=== PATIENT | female | born 1945 | race Caucasian/White ===

== ENCOUNTER 2019-12-13 17:21 | Outpatient (CLI) | payer MEDICARE, OTHER, SELFPAY ==
--- NOTE | ~2019-12-13 | XR_ITS ---
XR chest 2V 12/13/2019 17:47 Indication: Shortness of breath. COPD. Procedure: PA and lateral views of the chest Comparison: No prior studies for comparison. Findings: Heart size normal. There is apical pleural thickening/scarring. Heart size normal. The lung s are hyperinflated which is consistent with, but not diagnostic of chronic obstructive pulmonary dis ease. No focal air space disease, pulmonary edema, pleural effusion or suspected pneumothorax. Impression: 1: No acute cardiopulmonary disease. Reviewed, dictated and finalized at location A. Impression: 1: No acute cardiopulmonary disease.
== END 2019-12-13 17:22 | disposition home or self-care (01) ==
PROVIDERS: PCP Internal Medicine; Visit Provider Nurse Practitioner Family
DX: R06.02 Shortness of breath (principal); R05 Cough; J44.9 Chronic obstructive pulmonary disease, unspecified
CPT/HCPCS: 71046

== ENCOUNTER 2019-12-24 13:32 | Outpatient (CLI) | payer MEDICARE, OTHER, SELFPAY ==
[2019-12-24 13:55] VITALS: PULSE 112; O2SAT 96
[2019-12-24 14:00] VITALS: PULSE 118; O2SAT 90
[2019-12-24 14:10] VITALS: PULSE 113; O2SAT 94
== END 2019-12-24 13:33 | disposition home or self-care (01) ==
PROVIDERS: PCP Internal Medicine; Visit Provider Nurse Practitioner Family
DX: R09.02 Hypoxemia (principal)
CPT/HCPCS: 94618

== ENCOUNTER 2020-04-16 13:41 | Outpatient (CLI) | payer MEDICARE, OTHER, SELFPAY ==
--- NOTE | ~2020-04-16 | CT_ITS ---
EXAMINATION:CT lung screening DATE: 04/16/2020 14:24 INDICATION: Personal history of tobacco dependence. Smoker who quit 6 years ago with 30 pack year his tory. TECHNIQUE: Computed tomography (CT) of the chest was performed without intravenous contrast. Automate d exposure control and iterative reconstruction technique were employed. The dose-length product (DLP ) was 61.25 mGy-cm. COMPARISON: Chest CT 03/12/2019, 03/15/2018 FINDINGS: There is severe emphysema. There is chronic scarring at the lung apices with areas of calci fication. There is mild atelectasis bilaterally. A calcified lingular nodule is consistent with old g ranulomatous disease. No pleural effusion. The heart size is normal. There are coronary artery calcif ications. No pericardial effusion. Calcifications in the spleen are consistent with old granulomatous disease. 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 There are changes of cho lecystectomy. There is mild thoracic spondylosis. IMPRESSION: 1. Lung-RADS category 2: Benign appearance or behavior. Continue annual screening with noncontrast lo w-dose chest CT in 12 months. 2. 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 Reviewed, dictated and finalized at location B. 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 Lung-RADS category 2: Benign appearance or behavior. Continue annual screeni ng with noncontrast low-dose chest CT in 12 months. 2. 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
== END 2020-04-16 13:42 | disposition home or self-care (01) ==
PROVIDERS: PCP Internal Medicine; Visit Provider Nurse Practitioner Family
DX: Z12.2 Encounter for screening for malignant neoplasm of respiratory organs (principal); Z87.891 Personal history of nicotine dependence; I71.4 Abdominal aortic aneurysm, without rupture
CPT/HCPCS: G0297

== ENCOUNTER 2020-06-12 12:17 | Outpatient (CLI) | payer MEDICARE, OTHER, SELFPAY ==
--- NOTE | 2020-06-12 12:53 | ECHO_ITS ---
Patient Info Name: Ana Laura Monzon Age: 74 years : 1945 Gender: Female Ht: 64 in Wt: 127 lbs BSA: 1.62 m2 HR: 100 bpm BP: 140 / 92 mmHg Heart Rhythm: Sinus Rhythm Technical Quality: Good Exam Date: 06/12/2020 1:23 PM Exam Location: [facility] Patient Status: Outpatient Admit Date: 06/12/2020 Staff Ordering Physician: Lan Garcia APRN Behavioral Health Director: Susanna Short RDCS Attending Provider: Lan Garcia APRN Referring Physician: Jose TEMPLETON; Exam Type: CA echo doppler color flow Study Info Indications - copd sob Complete two-dimensional, color flow and Doppler transthoracic echocardiogram is performed. Summary 1. Complete two-dimensional, color flow and Doppler transthoracic echocardiogram is performed. 2. Left ventricular chamber dimension is normal. 3. Left ventricular systolic function is hyperdynamic, estimated at >70%. 4. There is no increased left ventricular wall thickness. 5. The left ventricular diastolic function is grade I diastolic dysfunction. 6. There is mild tricuspid valve regurgitation. 7. Mild pulmonary hypertension, estimated pulmonary arterial systolic pressure is 41 mmHg. Left Ventricle Left ventricular chamber dimension is normal. Left ventricular systolic function is hyperdynamic, estimated at >70%. There is no increased left ventricular wall thickness. The left ventricular diastolic function is grade I diastolic dysfunction. Right Ventricle Right ventricular chamber dimension is normal. Right ventricular systolic function is normal. Left Atria Left atrial chamber dimension is normal. Right Atria Right atrial chamber dimension is normal. Atrial Septum Intact interatrial septum visualized by color flow imaging. Aortic Valve The aortic valve is trileaflet. There is mild aortic valve sclerosis. There is no aortic valve stenosis. There is trace aortic valve regurgitation. Pulmonic Valve The pulmonic valve is normal. There is no pulmonic valve stenosis. There is trace pulmonic regurgitation. Mitral Valve The mitral valve has normal leaflets. There is no mitral valve stenosis. There is trace mitral valve regurgitation. Tricuspid Valve The tricuspid valve leaflets are normal. There is no significant tricuspid valve stenosis. There is mild tricuspid valve regurgitation. Mild pulmonary hypertension, estimated pulmonary arterial systolic pressure is 41 mmHg. Pericardium/Pleural The pericardium appears normal. There is no pericardial effusion. Inferior Vena Cava Normal inferior vena cava with >50% collapse upon inspiration consistent with normal right atrial pressure, 10 mmHg. Aorta The aortic root size at the sinus of Valsalva is normal. The prox ascending aorta size is normal. Left Ventricular Outflow Tract Name Value Normal LVOT 2D LVOT Diameter 2.0 cm LVOT Doppler LVOT Peak Gradient 7 mmHg LVOT Mean Gradient 4 mmHg LVOT VTI 24 cm LVOT VTI/AV VTI Ratio 0.9 LVOT Stroke Volume
[2020-06-12 13:55] VITALS: PULSE 118; O2SAT 92
[2020-06-12 14:00] VITALS: PULSE 125; O2SAT 90
[2020-06-12 14:05] VITALS: PULSE 115; O2SAT 95
== END 2020-06-12 12:18 | disposition home or self-care (01) ==
PROVIDERS: PCP Internal Medicine; Visit Provider Nurse Practitioner Family
DX: R06.02 Shortness of breath (principal); I27.20 Pulmonary hypertension, unspecified
CPT/HCPCS: 93306; 94618

== ENCOUNTER 2020-11-21 11:59 | Inpatient (IN) | payer MEDICARE, OTHER, SELFPAY ==
[2020-11-21] VITALS (18 sets, daily range): BP systolic 97–153; BP diastolic 75–94; PULSE 93–111; RESP 18–28; TEMP 36.2–36.7; O2SAT 89–99; BMI 22.7
--- NOTE | ~2020-11-21 | CT_ITS ---
EXAMINATION: CTA chest PE protocol DATE: 11/24/2020 12:43 INDICATION: Shortness of breath TECHNIQUE: Computed tomography angiography (CTA) of the chest was performed with 100 mL Omnipaque-350 intravenous contrast timed to evaluate the pulmonary arteries. Coronal maximum intensity projection 3D-reconstructions were created by the technologist. The dose-length product (DLP) was 180.52 mGy-cm. Automated exposure control and iterative reconstruction technique were employed. COMPARISON: 04/16/2020 FINDINGS: The pulmonary arteries are well-opacified. No pulmonary embolism is identified. There is se jatin emphysema with areas of scarring in the upper lobes. There is expected decreased opacification o f the pulmonary arteries in the areas of scarring. The lungs are free of acute opacities. There is no pleural effusion or pneumothorax. Surgical changes are noted in the right lung apex. No pathological ly enlarged thoracic lymph nodes are identified. The heart size is normal. There is mild thoracic spo ndylosis. Again noted is a partially imaged fusiform aneurysm of the suprarenal abdominal aorta. IMPRESSION: 1. No pulmonary embolism identified. 2. Severe emphysema with areas of scarring in the upper lobes. Reviewed, dictated and finalized at location A.
--- NOTE | ~2020-11-21 | XR_ITS ---
EXAMINATION: XR chest 1V portable EXAM DATE: 11/21/2020 12:26 INDICATION: Shortness of breath, history of COPD. TECHNIQUE: Portable AP frontal chest x-ray was obtained. Comparison is made to prior examination from 12/13/2019. FINDINGS: Right upper lobe suture material, likely partial pneumonectomy. The lungs are hyperinflated which can be seen with chronic obstructive pulmonary disease (a clinical diagnosis of functional imp airment), but is not diagnostic of it. There is aortic arteriosclerosis. No confluent consolidation, pneumothorax or pleural effusion suspected. Cardiomediastinal silhouette is normal. There are mild yash ny degenerative changes. There are cholecystectomy clips. IMPRESSION: 1. No acute cardiac pulmonary findings. 2. Chronic hyperinflation. Reviewed, dictated and finalized at location B.
--- NOTE | ~2020-11-21 | XR_ITS ---
EXAMINATION: XR chest 1V portable DATE: 11/25/2020 06:05 INDICATION: Shortness of breath TECHNIQUE: frontal view of the chest was obtained. COMPARISON: Chest radiograph and CT dated 11/24/2020 FINDINGS: Emphysema with increased lucency and architectural distortion at the upper lung zones, left greater t kaplan right. Moderate biapical pleural-parenchymal scarring. Skinfold projects over the lateral right h emithorax. No other airspace opacities, pulmonary edema, pleural effusion or pneumothorax. The cardio mediastinal silhouette is normal. IMPRESSION: 1. Emphysema with biapical pleural-parenchymal scarring. Reviewed, dictated and finalized at location A.
--- NOTE | ~2020-11-21 | XR_ITS ---
EXAMINATION: XR chest 1V portable INDICATION: Shortness of breath TECHNIQUE: Portable AP chest at 0518 hours COMPARISON: 11/21/2020 FINDINGS: The lungs are hyperinflated but free of acute opacities. There is scarring of the lung apic es. Surgical changes noted in the right lung apex. There is no pleural effusion or pneumothorax. The cardiomediastinal silhouette is normal. Surgical clips in the right upper quadrant are likely from pr ior cholecystectomy. IMPRESSION: 1. Hyperinflation without acute cardiopulmonary abnormality. Reviewed, dictated and finalized at location A.
--- NOTE | ~2020-11-21 | XR_ITS ---
EXAMINATION: XR chest 1V portable DATE: 11/24/2020 05:23 INDICATION: Shortness of breath TECHNIQUE: frontal view of the chest was obtained. COMPARISON: Chest radiograph dated 11/23/2020 FINDINGS: Mild biapical pleural-parenchymal scarring. Couple curved skinfolds project over the lateral right jennyfer ng. No other airspace opacities, pulmonary edema, pleural effusion or pneumothorax. The cardiomediast inal silhouette is normal. IMPRESSION: 1. No acute cardiopulmonary disease. Reviewed, dictated and finalized at location A.
--- NOTE | 2020-11-21 12:03 | ECG_ITS ---
Measurements Intervals [place] Rate: 106 P: 79 HI: 147 QRS: 38 QRSD: 94 T: 66 QT: 353 QTc: 470 Interpretive Statements SINUS TACHYCARDIA POSSIBLE LEFT ATRIAL ENLARGEMENT BORDERLINE R WAVE PROGRESSION, ANTERIOR LEADS CONSIDER INFERIOR INFARCT, AGE INDETERMINATE BASELINE ARTIFACT- I, II, III, AVR, AVL, AVF, V1-V6 ABNORMAL ECG Electronically Signed On 11-21-2020 13:18:00 CDT by Alexis Carlton D.O.
--- NOTE | 2020-11-21 12:22 | ED.SOB ---
HPI - SOB/Dyspnea General Chief Complaint: Shortness of Breath/Dyspnea Stated Complaint: SOB x 3days Time Seen by Provider: 11/21/20 12:14 History of Present Illness HPI Narrative: Short of breath for the past 2 days. Associated with increased work of breathing. She has been taking all of her COPD medications without significant relief. She received Dexamethasone, magnesium and a nebulizer treatment per EMS without significant improvement. No chest pain, fever. Related Data Home Medications Medication Instructions Recorded Confirmed metoprolol succinate 25 mg 25 mg PO DAILY 08/06/20 11/21/20 tablet,extended release 24 hr levalbuterol HCl 1.25 mg INHALATION Q8H PRN 11/21/20 11/21/20 Allergies Allergy/AdvReac Type Severity Reaction Status Date / Time fluticasone furoate AdvReac Severe Rash Verified 11/21/20 12:17 [From Trelegy Ellipta] umeclidinium AdvReac Severe Rash Verified 11/21/20 12:17 [From Trelegy Ellipta] vilanterol AdvReac Severe Rash Verified 11/21/20 12:17 [From Trelegy Ellipta] Review of Systems Review of Systems: All systems reviewed & are unremarkable except as noted in HPI and below Constitutional: Constitutional: Denies chills, Denies fever(s) and Denies weakness Eyes: Eyes: Reports no additional eye complaints ENT: Denies sore throat Cardiovascular: Cardiovascular: Denies chest pain Respiratory: Respiratory: Denies cough, Reports dyspnea and Reports wheezing Gastrointestinal: Gastrointestinal: Denies abdominal pain, Denies nausea and Denies vomiting Genitourinary: Genitourinary: Reports no additional female genitourinary complaints Musculoskeletal: Musculoskeletal: Reports no additional musculoskeletal complaints Neurologic: Denies numbness and Denies weakness [facility] Past Medical History Medical History (Updated 11/21/20 @ 17:49 by Travis Zelaya MD) COPD (chronic obstructive pulmonary disease) Cystoid macular edema following cataract surgery, bilateral Hypoxemia Rhinitis Surgical History Surgical History H/O tubal ligation History of breast biopsy History of cholecystectomy History of total hip arthroplasty Family History Family History Father Cerebrovascular accident, Onset Age: 87 Patient's father is Mother Patient's mother is Diabetes mellitus Hypertension Family history of cardiovascular disease Sibling Patient's brother is Family history of malignant neoplasm of esophagus Family history of obesity Hypertension Patient's brother is in good health Malignant neoplasm of prostate Family history of diabetes mellitus in first degree relative Diabetes mellitus Family history of alcoholism Family history of arthritis Social History Social History Smoking status: Former smoker Second hand tobacco smoke exposure: No Smoking end date: 06/06/14 Alcohol intake: current Drinks per week: 4 Substance use: never Gender identity (if verbalized by the patient): Female Exam Const: General: alert and ill appearing acutely Orientation/consciousness: patient oriented x3 Other: mild distress. HENMT: Head: normal to inspection Mouth: Yes dry mucous membranes Eyes: Conjunctivae: conjunctivae normal Neck: Neck: normal visual inspection Resp: Effort & Inspection: labored and uses accessory muscles Auscultation: wheezes and diminished lung sounds Cardio: Rate: tachycardic Rhythm: regular rhythm GI: GI Palp: Yes Soft to palpation and No Tenderness to palpation present (GI) Skin: General skin exam: normal color Neuro: General: patient oriented x3, moves all extremities and CN's II-XI intact bilaterally Extrem: General: no edema Psych: Mental Status: mental status grossly normal Affect: n
[2020-11-21] MEDS: ALBUTEROL SULFATE NEB 2.5 MG/0.5 ML INH 10 MG INHALATION (12:40)
[2020-11-21] MEDS: SODIUM CHLORIDE 0.9% IV 1,000 ML 999 ML IV CONT (12:40)
[2020-11-21 12:52] LABS: Alveolar/Arterial O2 Gradient 106.2 mmHg; Base Excess ABG -3.3 mEq/l (+/-2.0); Carboxyhemoglobin 0.7 % THb (0-2.0); Fractional Inspired Oxygen 32 %; HCO3 ABG 24.7 mEq/l (22.0-26.0); Methemoglobin ABG 0.4 %THb (0-1.5); Oxygen Content ABG 18.4 %vol (16.0-22.0); Oxyhemoglobin 85.6 % THb (90.0-100.0); PCO2 ABG 56.3 mmHg (35.0-45.0); PO2 ABG 56.1 mmHg (80.0-100.0); PO2 FiO2 Ratio Arterial Blood 1.75 %; Reduced Hemoglobin 13.3 %THb (0-5.0); Total Hemoglobin 15.3 g/dL (12.0-18.0)
[2020-11-21 12:54] LABS: Device NASAL CANNULA; Modified Allen's Test Pass; Oxygen Saturation ABG 84.3 % (95.0-100.0); Site Drawn LEFT RADIAL
[2020-11-21 13:06] LABS: Basophils Percent Auto 0.2 % (0.2-1.2); Hematocrit 44.4 % (37.0-47.0); Hemoglobin 14.1 g/dL (12.0-15.0); Immature Granulocyte Absolute 0.08 K/mm3 (0.00-0.031); Immature Granulocyte Percent A 0.6 % (0-0.5); Lymphocytes Absolute Auto 0.97 K/mm3 (0.9-3.2); Lymphocytes Percent Auto 6.8 % (18.3-44.2); Mean Corpuscular HGB Conc 31.8 g/dl (32-36); Mean Corpuscular Hemoglobin 33.1 pg (26-34); Mean Corpuscular Volume 104.2 fl (80-100); Mean Platelet Volume 9.1 fl (7.4-10.4); Monocytes Absolute Auto 0.5 K/mm3 (0.1-0.6); Monocytes Percent Auto 3.4 % (2.6-8.5); Neutrophils Absolute Auto 12.7 K/mm3 (1.3-6.7); Platelet Count Result 255 k/mm3 (150-375); Red Blood Count 4.26 M/mm3 (4.2-5.4); Red Cell Distribution Width 13.3 % (11.5-14.5); White Blood Count 14.3 K/mm3 (4.5-10.0)
[2020-11-21 13:17] LABS: Anion Gap 12 mmol/L (8-16); Blood Urea Nitrogen 14 mg/dL (7-17); Carbon Dioxide 26 mmol/L (22-30); Chloride 105 mmol/L (98-107); Estimated CRCL calculation 57 ml/min; Estimated Glomerular Filt Rate > 60; Glucose 166 mg/dL (65-105); Potassium 4.3 mmol/L (3.4-5.0); Sodium 143 mmol/L (137-145)
[2020-11-21 13:26] LABS: NT Pro B Type Natriuretic Pept 980 pg/mL (5-100)
[2020-11-21 13:27] LABS: Lactic Acid Reflex 1.8 mmol/L (0.7-2.1)
--- NOTE | 2020-11-21 13:30 | PC.NURSE ---
Unable to urinate at this time, refusing straight cath.
[2020-11-21] MEDS: LORazepam INJ (*CRX) 2 MG/ML VIAL 1 MG IV PUSH (14:31)
--- NOTE | 2020-11-21 16:45 | ADMGEN ---
This patient, Ana Laura Monzon, was admitted to IMU Room 207-01. Patient/family oriented to hospital policies and general routines including ID bracelet, bed and alarms, visiting hours, pain management, procedures, bathroom and other care routines, personal items, smoking policy, room service/diet, and visiting hours. Information on how to activate the Rapid Response Team has been discussed. Patient/Family are encouraged to report perceived risks to care and to ask questions if they do not understand what they are told or what they should do.
[2020-11-21] MEDS: methylPREDNISolone SOD SUCC 125 MG VIAL 60 MG IV PUSH ×2 (18:16→23:46)
--- NOTE | 2020-11-21 19:08 | PM.IMHP ---
H&P: HPI History of Present Illness Date/Time: 11/21/20 19:08 this is a 75-year-old female patient who has a history of COPD and diastolic congestive heart failure. Does not wear her CPAP machine. The patient has been more short of breath the last 2 days. The patient stated that she has nebulizer machine at home and she has been using that without any relief. The patient was given dexamethasone, magnesium and a nebulizer treatment per EMS. 7.260 CO2 is 56.3. O2 saturation 84.3. Patient was placed on BiPAP 05/11. Initially the patient was refusing a BiPAP and then they had a long About intubation. The patient stated that she did not want to be intubated. At this time she is is on the BiPAP. Chest x-ray was read as chronic hyperinflation. No acute cardiopulmonary findings. Patient was given a albuterol nebulizer IV fluids and Ativan in the emergency room. The patient is being admitted to inpatient services on the date of service on 11/21/2020 Chief Complaint: sob Review of Systems Review of Systems: All systems reviewed & are unremarkable except as noted in HPI and below Constitutional: Constitutional: Reports as per HPI and Reports no additional constitutional complaints Eyes: Eyes: Reports as per HPI and Reports no additional eye complaints ENT: Reports system reviewed and no additional complaints, except as documented and Reports Normal hearing present Cardiovascular: Cardiovascular: Reports no additional cardiovascular complaints Respiratory: Respiratory: Reports no additional respiratory complaints and Reports no additional respiratory complaints Gastrointestinal: Gastrointestinal: Reports as per HPI and Reports no additional gastrointestinal complaints Musculoskeletal: Musculoskeletal: Reports no additional musculoskeletal complaints Integumentary/Breasts: Skin/Breast: Reports system reviewed and no additional complaints, except as docu and Reports as per HPI Neurologic: Reports system reviewed and no additional complaints, except as documented, Reports as per HPI and Reports Normal hearing present Psychiatric: Psychiatric: Reports no additional psychiatric complaints and Reports as per HPI Endocrine: Endocrine: Reports no additional endocrine complaints Hematologic/Lymphatic: Hematologic/Lymphatic: Reports no additional hematologic/lymphatic complaints Allergic/Immunologic: Allergic/Immunologic: Reports no additional allergic/immunologic complaints [facility] Past Medical History Medical History (Updated 11/21/20 @ 19:23 by Juju Tellez NP) Anxiety CHF (congestive heart failure), NYHA class I Diastolic COPD (chronic obstructive pulmonary disease) Cystoid macular edema following cataract surgery, bilateral Hyperlipidemia Hypoxemia KRIS on CPAP Intolerable of a CPAP Rhinitis Surgical History Surgical History (Updated 11/21/20 @ 19:18 by Juju Tellez NP) H/O cataract extraction Bilateral H/O tubal ligation History of breast biopsy History of cholecystectomy History of total hip arthroplasty Family History Family History Father Cerebrovascular accident, Onset Age: 87 Patient's father is Mother Patient's mother is Diabetes mellitus Hypertension Family history of cardiovascular disease Sibling Patient's brother is Family history of malignant neoplasm of esophagus Family history of obesity Hypertension Patient's brother is in good health Malignant neoplasm of prostate Family history of diabetes mellitus in first degree relative Diabetes mellitus Family history of alcoholism Family history of arthritis Social History Social History (Updated 11/21/20 @ 19:17 by Juju Tellez NP) Social History: The patient lives with her and she has 2 children. Her is a durable power patent prosecution attorney for healthcare. 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
[2020-11-21] MEDS: LORazepam INJ (*CRX) 2 MG/ML VIAL 0.5 MG IV PUSH (19:45)
[2020-11-21] MEDS: IPRATROPIUM BR 0.02% INH SOLN 0.5 MG/2.5 ML VIAL INHALATION (21:32)
[2020-11-21] MEDS: ALBUTEROL SULFATE NEB 2.5 MG/0.5 ML INH 5 MG INHALATION (21:32)
[2020-11-22] VITALS (27 sets, daily range): BP systolic 103–152; BP diastolic 65–97; PULSE 84–118; RESP 19–28; TEMP 36.1–36.6; O2SAT 94–100
[2020-11-22] MEDS: IPRATROPIUM BR 0.02% INH SOLN 0.5 MG/2.5 ML VIAL INHALATION ×4 (01:33→20:25)
[2020-11-22] MEDS: ALBUTEROL SULFATE NEB 2.5 MG/0.5 ML INH 5 MG INHALATION ×4 (01:33→20:25)
[2020-11-22] MEDS: LORazepam INJ (*CRX) 2 MG/ML VIAL 0.5 MG IV PUSH ×3 (01:37→20:30)
[2020-11-22 05:25] LABS: Hematocrit 40.7 % (37.0-47.0); Hemoglobin 12.8 g/dL (12.0-15.0); Mean Corpuscular HGB Conc 31.4 g/dl (32-36); Mean Corpuscular Hemoglobin 33.5 pg (26-34); Mean Corpuscular Volume 106.5 fl (80-100); Mean Platelet Volume 9.4 fl (7.4-10.4); Platelet Count Result 207 k/mm3 (150-375); Red Blood Count 3.82 M/mm3 (4.2-5.4); Red Cell Distribution Width 13.5 % (11.5-14.5); White Blood Count 7.8 K/mm3 (4.5-10.0)
[2020-11-22 05:39] LABS: Anion Gap 12 mmol/L (8-16); Blood Urea Nitrogen 19 mg/dL (7-17); Calcium 9.7 mg/dL (8.4-10.2); Carbon Dioxide 25 mmol/L (22-30); Chloride 107 mmol/L (98-107); Estimated CRCL calculation 57 ml/min; Estimated Glomerular Filt Rate > 60; Glucose 143 mg/dL (65-105); Magnesium 2.1 mg/dL (1.6-2.3); Potassium 4.3 mmol/L (3.4-5.0); Sodium 144 mmol/L (137-145)
[2020-11-22 06:09] LABS: Add Urine Microscopic? YES; Appearance Urine Cloudy (Clear); Bacteria Urine Trace /hpf; Bilirubin Urine Negative (Negative); Blood Urine 3+ (Negative); Color Urine Yellow (Yellow); Glucose Urine UA Negative (Negative); Hyaline Casts Urine 30-49 /lpf; Ketones Urine 2+ mg/dL (Negative); Leukocyte Esterase Ur Negative LEU/UL (Negative); Mucus Urine Few /lpf; Nitrate Urine Negative (Negative); Protein Urine 2+ mg/dL (Negative); RBC Urine >75 /hpf (0-2); Specific Grav Ur 1.025 (1.001-1.035); Squamous Epithelial Cell Urine Few /hpf (Few); Urobilinogen Urine Negative mg/dL (<2.0)
[2020-11-22 06:20] LABS: Thyroid Stimulating Hormone Reflex 0.274 uIU/mL (0.465-4.68)
[2020-11-22] MEDS: methylPREDNISolone SOD SUCC 125 MG VIAL 60 MG IV PUSH ×4 (06:32→23:32)
[2020-11-22 07:49] LABS: Free T4 Free Thyroxine Reflex 0.99 ng/dL (0.78-2.19)
[2020-11-22] MEDS: METOPROLOL SUCCINATE EXT REL 25 MG TABCR PO (08:40)
[2020-11-22] MEDS: CITALOPRAM HYDROBROMIDE 20 MG TABLET 40 MG PO (08:41)
[2020-11-22] MEDS: SIMVASTATIN 10 MG TABLET PO (08:41)
[2020-11-22 08:49] LABS: Alveolar/Arterial O2 Gradient 189.6 mmHg; Base Excess ABG -0.5 mEq/l (+/-2.0); Fractional Inspired Oxygen 55 %; HCO3 ABG 28.1 mEq/l (22.0-26.0); Oxygen Content ABG 19.1 %vol (16.0-22.0); Oxygen Saturation ABG 98.1 % (95.0-100.0); Oxyhemoglobin 97.2 % THb (90.0-100.0); PO2 ABG 130.8 mmHg (80.0-100.0); PO2 FiO2 Ratio Arterial Blood 2.38 %; Total Hemoglobin 13.8 g/dL (12.0-18.0)
[2020-11-22 08:50] LABS: Device NON-INVASIVE VENT; Modified Allen's Test Pass; Non-Invasive Expiratory Pressure 6 CMH2O; Non-Invasive Inspiratory Pressure 12 CMH2O; Non-Invasive Vent Rate 12 /MIN; PCO2 ABG 64.5 mmHg (35.0-45.0); Site Drawn RIGHT RADIAL; pH ABG 7.257 (7.350-7.450)
[2020-11-22 10:30] LABS: Total Triiodothyronine (T3) 0.95 NG/ML (0.97-1.69)
[2020-11-22] MEDS: HYDROcodone/acetaminophen (*CRX) 5-325 MG TABLET 1 TAB PO (13:23)
--- NOTE | 2020-11-22 15:46 | PM.IMPN ---
Progress Note: A&P Assessment and Plan (1) COPD (chronic obstructive pulmonary disease): Code(s): J44.9 - Chronic obstructive pulmonary disease, unspecified Status: Acute Assessment and Plan: Continue with Solu-Medrol and nebulizer treatments. ABG reviewed today continue BIPAP (2) CHF (congestive heart failure), NYHA class I: Code(s): I50.9 - Heart failure, unspecified Status: Chronic Assessment and Plan: Continue with metoprolol (3) Acute respiratory failure with hypoxia and hypercarbia: Code(s): J96.01 - Acute respiratory failure with hypoxia; J96.02 - Acute respiratory failure with hypercapnia Status: Acute Assessment and Plan: Patient is currently on the BiPAP and she has hypercapnia and hypoxia. (4) Hyperlipidemia: Code(s): E78.5 - Hyperlipidemia, unspecified Status: Chronic Assessment and Plan: Continue with simvastatin. (5) Anxiety: Code(s): F41.9 - Anxiety disorder, unspecified Status: Chronic Assessment and Plan: Continue with IV Ativan and continue Celexa Subjective Date/time seen: 11/22/20 15:46 Interval history: 75-year-old female patient who has a history of COPD and diastolic congestive heart failure. Does not wear her CPAP machine. Review of Systems Review of Systems: All systems reviewed & are unremarkable except as noted in HPI and below Exam Const: General: cooperative, healthy appearing, comfortable, no acute distress, well developed, alert, awake and Physically active Nutritional Appearance: average body habitus and well nourished Orientation/consciousness: oriented to person, oriented to place, oriented to time and patient oriented x3 Limitations: no limitations Chest: Chest palpation & inspection: normal inspection of the chest Resp: Effort & Inspection: retractions (Currently on a BiPAP) Auscultation: wheezes expiratory wheezes and upper bilaterally and diminished lung sounds Percussion: percussion normal Cardio: Palpation: normal PMI Rate: regular rate Rhythm: regular rhythm Heart sounds: S1 normal heart sound present and S2 normal heart sound present Peripheral pulses: Peripheral pulses 2+ throughout Neuro: General: oriented to person, oriented to place, oriented to time and patient oriented x3 Cranial nerves: Yes Equal, round and reactive pupils present and Yes Normal hearing present Cognition (Neuro): normal cognition Speech: normal speech Gait exam (Neuro): Normal gait present Motor exam (neuro): 5/5 motor strength present throughout Sensory Exam: normal sensation Extrem: General: normal to inspection Right upper extremity: normal to inspection Left upper extremity: normal to inspection Right lower extremity: normal to inspection Left lower extremity: normal to inspection Objective Data Vital Signs Vital Signs: Vital Signs - 24 hr 11/21/20 16:18 11/21/20 16:41 11/21/20 16:45 Temperature 36.2 C L Pulse Rate 107 H 111 H Respiratory Rate 22 H 28 H Blood Pressure 118/87 153/91 H Pulse Oximetry 95 94 96 11/21/20 18:00 11/21/20 20:00 11/21/20 21:40 Temperature 36.4 C Pulse Rate 111 H 106 H 93 Respiratory Rate 22 H 18 Blood Pressure 132/80 Pulse Oximetry 99 11/21/20 21:41 11/21/20 21:43 11/21/20 21:58 Temperature Pulse Rate 93 93 102 H Respiratory Rate 20 18 18 Blood Pressure Pulse Oximetry 98 98 11/21/20 22:00 11/22/20 00:00 11/22/20 01:35 Temperature 36.4 C Pulse Rate 103 H 101 H 112 H Respiratory Rate 22 H 28 H Blood Pressure 152/80 H Pulse Oximetry 99 98 11/22/20 01:38 11/22/20 01:50 11/22/20 02:00 Temperature Pulse Rate 112 H 115 H 111 H Respiratory Rate 28 H 22 H Blood Pressure Pulse Oximetry 11/22/20 04:00 11/22/20 06:00 11/22/20 07:58 Temperature 36.1 C L Pulse Rate 95 118 H 112 H Respiratory Rate 19 21 H Blood Pressure 103/65 Pulse Oximetry 99 11/22/20 08:00 11/22/20 08:01 11/22/20
[2020-11-22 16:42] LABS: Alveolar/Arterial O2 Gradient 95.5 mmHg; Base Excess ABG 1.4 mEq/l (+/-2.0); Fractional Inspired Oxygen 35 %; HCO3 ABG 28.6 mEq/l (22.0-26.0); Oxygen Content ABG 17.9 %vol (16.0-22.0); Oxygen Saturation ABG 95.8 % (95.0-100.0); Oxyhemoglobin 95.5 % THb (90.0-100.0); PO2 ABG 87.8 mmHg (80.0-100.0); PO2 FiO2 Ratio Arterial Blood 2.51 %; Total Hemoglobin 13.3 g/dL (12.0-18.0); pH ABG 7.319 (7.350-7.450)
[2020-11-22 16:44] LABS: Device BIPAP; Modified Allen's Test Pass; Site Drawn LEFT RADIAL
[2020-11-22 16:45] LABS: Expiratory Pressure 7 cmH2O; Inspiratory Pressure 14 cmH2O
[2020-11-23] VITALS (30 sets, daily range): BP systolic 113–134; BP diastolic 42–79; PULSE 86–118; RESP 18–24; TEMP 35.7–36.6; O2SAT 94–100
[2020-11-23] MEDS: HYDROcodone/acetaminophen (*CRX) 5-325 MG TABLET 1 TAB PO ×3 (00:37→14:41)
[2020-11-23] MEDS: IPRATROPIUM BR 0.02% INH SOLN 0.5 MG/2.5 ML VIAL INHALATION ×4 (02:36→20:55)
[2020-11-23] MEDS: ALBUTEROL SULFATE NEB 2.5 MG/0.5 ML INH 5 MG INHALATION ×4 (02:36→20:55)
[2020-11-23] MEDS: methylPREDNISolone SOD SUCC 125 MG VIAL 60 MG IV PUSH ×4 (05:21→23:49)
[2020-11-23 05:26] LABS: Hematocrit 37.8 % (37.0-47.0); Hemoglobin 11.8 g/dL (12.0-15.0); Mean Corpuscular HGB Conc 31.2 g/dl (32-36); Mean Corpuscular Volume 105.6 fl (80-100); Mean Platelet Volume 9.3 fl (7.4-10.4); Platelet Count Result 218 k/mm3 (150-375); Red Blood Count 3.58 M/mm3 (4.2-5.4); Red Cell Distribution Width 13.5 % (11.5-14.5); White Blood Count 15.4 K/mm3 (4.5-10.0)
[2020-11-23 05:43] LABS: Anion Gap 8 mmol/L (8-16); Blood Urea Nitrogen 27 mg/dL (7-17); Calcium 9.9 mg/dL (8.4-10.2); Carbon Dioxide 33 mmol/L (22-30); Chloride 102 mmol/L (98-107); Estimated CRCL calculation 49 ml/min; Estimated Glomerular Filt Rate > 60; Glucose 145 mg/dL (65-105); Potassium 4.1 mmol/L (3.4-5.0); Sodium 143 mmol/L (137-145)
[2020-11-23 05:47] LABS: Alveolar/Arterial O2 Gradient 98.7 mmHg; Base Excess ABG 3.8 mEq/l (+/-2.0); Fractional Inspired Oxygen 35 %; HCO3 ABG 31.3 mEq/l (22.0-26.0); Oxygen Content ABG 17.9 %vol (16.0-22.0); Oxyhemoglobin 94.8 % THb (90.0-100.0); PO2 ABG 81.1 mmHg (80.0-100.0); PO2 FiO2 Ratio Arterial Blood 2.32 %; Total Hemoglobin 13.4 g/dL (12.0-18.0); pH ABG 7.335 (7.350-7.450)
[2020-11-23 05:48] LABS: Device NON-INVASIVE VENT; Site Drawn RIGHT BRACHIAL
[2020-11-23 05:49] LABS: Non-Invasive Expiratory Pressure 7 CMH2O; Non-Invasive Inspiratory Pressure 14 CMH2O; Non-Invasive Vent Rate 18 /MIN
[2020-11-23] MEDS: LORazepam INJ (*CRX) 2 MG/ML VIAL 0.5 MG IV PUSH ×2 (06:21→13:51)
[2020-11-23] MEDS: METOPROLOL SUCCINATE EXT REL 25 MG TABCR PO (08:22)
[2020-11-23] MEDS: SIMVASTATIN 10 MG TABLET PO (08:23)
[2020-11-23] MEDS: CITALOPRAM HYDROBROMIDE 20 MG TABLET 40 MG PO (08:23)
--- NOTE | 2020-11-23 16:18 | PM.IMPN ---
Progress Note: A&P Assessment and Plan (1) COPD (chronic obstructive pulmonary disease): Code(s): J44.9 - Chronic obstructive pulmonary disease, unspecified Status: Acute Assessment and Plan: Continue with Solu-Medrol and nebulizer treatments. ABG reviewed today continue BIPAP (2) CHF (congestive heart failure), NYHA class I: Code(s): I50.9 - Heart failure, unspecified Status: Chronic Assessment and Plan: Continue with metoprolol (3) Acute respiratory failure with hypoxia and hypercarbia: Code(s): J96.01 - Acute respiratory failure with hypoxia; J96.02 - Acute respiratory failure with hypercapnia Status: Acute Assessment and Plan: Patient is currently on the BiPAP and she has hypercapnia and hypoxia.order cxr for yoni am, abg for later today and pulmology consult (4) Hyperlipidemia: Code(s): E78.5 - Hyperlipidemia, unspecified Status: Chronic Assessment and Plan: Continue with simvastatin. (5) Anxiety: Code(s): F41.9 - Anxiety disorder, unspecified Status: Chronic Assessment and Plan: Continue with IV Ativan and continue Celexa Subjective Date/time seen: 11/23/20 16:18 Interval history: 75-year-old female patient who has a history of COPD and diastolic congestive heart failure. Still sob at rest on BIPAP pulmology consult ordered, CXR ordered for AM and ABG later today Review of Systems Review of Systems: All systems reviewed & are unremarkable except as noted in HPI and below Exam Const: General: cooperative, alert and Physically active Orientation/consciousness: oriented to person, oriented to place, oriented to time and patient oriented x3 Limitations: no limitations HENMT: Head: normal to inspection, No palpable skull fracture present, normocephalic and atraumatic Resp: Effort & Inspection: retractions (Currently on a BiPAP) Auscultation: wheezes expiratory wheezes and upper bilaterally and diminished lung sounds Percussion: percussion normal Cardio: Palpation: normal PMI Rate: regular rate Rhythm: regular rhythm Heart sounds: S1 normal heart sound present and S2 normal heart sound present Peripheral pulses: Peripheral pulses 2+ throughout GI: Rectal Exam: deferred Skin: General skin exam: normal color Lesions: no lesions Rashes: no rashes Trauma: no lacerations or abrasions Wounds: no wounds Hair: normal Nails: normal Neuro: General: oriented to person, oriented to place, oriented to time and patient oriented x3 Cranial nerves: Yes Equal, round and reactive pupils present and Yes Normal hearing present Cognition (Neuro): normal cognition Speech: normal speech Gait exam (Neuro): Normal gait present Motor exam (neuro): 5/5 motor strength present throughout Sensory Exam: normal sensation Extrem: General: normal to inspection Right upper extremity: normal to inspection Left upper extremity: normal to inspection Right lower extremity: normal to inspection Left lower extremity: normal to inspection Psych: Appearance: grossly normal Mental Status: mental status grossly normal Speech and movement: Normal speech and movement present Affect: normal affect Attitude: cooperative Thought process: Normal thought process present Insight: Good insight present (Psych) Judgement: Good judgement present (Psych) Objective Data Vital Signs Vital Signs: Vital Signs - 24 hr 11/22/20 16:46 11/22/20 18:00 11/22/20 19:48 Temperature 36.1 C L Pulse Rate 109 H 95 104 H Respiratory Rate 22 H 26 H Blood Pressure 114/83 Pulse Oximetry 98 97 11/22/20 20:00 11/22/20 20:25 11/22/20 20:27 Temperature Pulse Rate 100 103 H 103 H Respiratory Rate 25 H 25 H Blood Pressure Pulse Oximetry 98 97 11/22/20 20:28 11/22/20 20:38 11/22/20 22:00 Temperature Pulse Rate 103 H 106 H 84 Respiratory Rate 25 H 22 H Blood Pressure Pulse Oximetry 11/22/20 23:29 11/23/20 00:00 11/23/20 02:00 T
[2020-11-23 21:15] LABS: Alveolar/Arterial O2 Gradient 78.7 mmHg; Fractional Inspired Oxygen 35 %; HCO3 ABG 36.6 mEq/l (22.0-26.0); Oxygen Content ABG 17.5 %vol (16.0-22.0); Oxygen Saturation ABG 96.8 % (95.0-100.0); PCO2 ABG 65.3 mmHg (35.0-45.0); PO2 ABG 94.9 mmHg (80.0-100.0); PO2 FiO2 Ratio Arterial Blood 2.71 %; Site Drawn RIGHT BRACHIAL; Total Hemoglobin 12.9 g/dL (12.0-18.0); pH ABG 7.367 (7.350-7.450)
[2020-11-23 21:16] LABS: Device NON-INVASIVE VENT; Non-Invasive Expiratory Pressure 7 CMH2O; Non-Invasive Inspiratory Pressure 14 CMH2O; Non-Invasive Vent Rate 18 /MIN
[2020-11-24] VITALS (32 sets, daily range): BP systolic 110–139; BP diastolic 54–75; PULSE 74–109; RESP 16–24; TEMP 36.2–37.2; O2SAT 94–100
[2020-11-24] MEDS: ALBUTEROL SULFATE NEB 2.5 MG/0.5 ML INH 5 MG INHALATION ×2 (02:16→08:46)
[2020-11-24] MEDS: IPRATROPIUM BR 0.02% INH SOLN 0.5 MG/2.5 ML VIAL INHALATION ×5 (02:16→19:59)
[2020-11-24 04:51] LABS: Hematocrit 38.1 % (37.0-47.0); Hemoglobin 11.9 g/dL (12.0-15.0); Mean Corpuscular HGB Conc 31.2 g/dl (32-36); Mean Corpuscular Hemoglobin 33.5 pg (26-34); Mean Corpuscular Volume 107.3 fl (80-100); Platelet Count Result 189 k/mm3 (150-375); Red Blood Count 3.55 M/mm3 (4.2-5.4); Red Cell Distribution Width 13.5 % (11.5-14.5); White Blood Count 14.1 K/mm3 (4.5-10.0)
[2020-11-24 05:02] LABS: Anion Gap 6 mmol/L (8-16); Blood Urea Nitrogen 29 mg/dL (7-17); Calcium 9.7 mg/dL (8.4-10.2); Carbon Dioxide 37 mmol/L (22-30); Chloride 103 mmol/L (98-107); Estimated CRCL calculation 57 ml/min; Estimated Glomerular Filt Rate > 60; Glucose 157 mg/dL (65-105); Potassium 3.9 mmol/L (3.4-5.0); Sodium 146 mmol/L (137-145)
[2020-11-24] MEDS: methylPREDNISolone SOD SUCC 125 MG VIAL 60 MG IV PUSH (05:25)
--- NOTE | 2020-11-24 07:49 | P.CDI_ITS ---
CDI Query Clarification Request -Pt arrived with c/o shortness of breath, increased work of breathing,wheezing, and accessory muscle use. -Solu Medrol 60mg IV q 6 hrs has been ordered -COPD has been documented. Please further clarify status of COPD: * Exacerbated * Stable * Unable to determine
[2020-11-24] MEDS: METOPROLOL SUCCINATE EXT REL 25 MG TABCR PO (08:26)
[2020-11-24] MEDS: CITALOPRAM HYDROBROMIDE 20 MG TABLET 40 MG PO (08:26)
[2020-11-24] MEDS: SIMVASTATIN 10 MG TABLET PO (08:26)
--- NOTE | 2020-11-24 10:29 | PM.CNPUL ---
Assessment and Plan Assessment and plan (1) COPD (chronic obstructive pulmonary disease): Code(s): J44.9 - Chronic obstructive pulmonary disease, unspecified Status: Acute Assessment and Plan: patient with a history of COPD with chronic hypoxemic and hypercarbic respiratory failure on home O2 and noninvasive ventilation at night. Currently patient with COPD exacerbation without evidence of pneumonia, BNP is mildly elevated at 980. I will check a D-dimer and if positive will obtain a CT angiogram of the chest. 11/24 Patient is currently on BiPAP set rate 18, 14/7, 35% with saturations of 100% and states that she is improving slowly. Patient has a few end expiratory wheezes. Will place the patient on albuterol 2.5 mg q.4 hours nebulized, ipratropium 0.5 mg q.4 hours nebulized, and Solu-Medrol 40 mg IV q.6. (2) Acute respiratory failure with hypoxia and hypercarbia: Code(s): J96.01 - Acute respiratory failure with hypoxia; J96.02 - Acute respiratory failure with hypercapnia Status: Acute Assessment and Plan: Patient admitted with a blood gas of 6 pH 7.26/56/56 on 3 L nasal cannula. Patient has chronic hypoxemic and hypercarbic respiratory failure and would benefit from home noninvasive ventilation. Patient states that she has a home machine and I will obtain a download from [employer] to assess her settings and compliance. In the meantime will continue noninvasive ventilation. History of Present Illness History of Present Illness Consult date: 11/24/20 Requesting physician: Quita Sotelo MD Reason for consult: COPD Chief complaint: COPD Exacerbation, acute respiratory failure Narrative: This is a new pulmonary consult for COPD with chronic hypoxemic and hypercarbic respiratory failure. 75 year-old woman with a history of COPD on 2 L oxygen at night and home noninvasive ventilation, who is followed in the Pulmonary Clinic in last seen on 08/06/2020. Patient was admitted on 11/21 with 2 days worsening shortness of breath despite using her home nebulizer machine. Patient had a blood gas in the emergency room with a pH of 7.26/ PaCO2 56 and was placed on BiPAP. Patient was treated with steroids bronchodilators and admitted to the hospital with a COPD exacerbation. 11/24 Patient is currently on BiPAP set rate 18, 14/7, 35% with Saturations of 100% and states that she is improving slowly. Patient denies any fever, chills and on exam has a few end expiratory wheezes. Patient has a headache but denies pain otherwise. DATA: LDCT 04/16/20 severe emphysema. There is chronic scarring at the lung apices with areas of calcification. There is mild atelectasis bilaterally. A calcified lingular nodule is consistent with old granulomatous disease. No pleural effusion. The heart size is normal. There are coronary artery calcifications. No pericardial effusion. Calcifications in the spleen are consistent with old granulomatous disease. 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 Echo 06/12/20 Left ventricular systolic function is hyperdynamic, estimated at >70%. Mild pulmHTN, RVSP 41mmHg. Hgb 14.4&Hct 43.6 04/25/20 normal. Review of Systems Review of Systems: All systems reviewed & are unremarkable except as noted in HPI and below Eyes: Eyes: Reports no additional eye complaints ENT: Reports system reviewed and no additional complaints, except as documented Cardiovascular: Cardiovascular: Reports no additional cardiovascular complaints Respiratory: Respiratory: Reports as per HPI Gastrointestinal: Gastrointestinal: Reports no additional gastrointestinal complaints Musculoskeletal: Musculoskeletal: Reports no additional musculoskeletal complaints Integumentary/Breasts: Skin/Breast: Reports system reviewed and no additional complaints, except as docu Neurologic: Reports system reviewed and no additional complaints, except as documented Psychiatric: Psychiatric: Reports no
[2020-11-24 11:11] LABS: D Dimer 0.91 ug/mL (<0.48)
[2020-11-24] MEDS: ACETAMINOPHEN 325 MG TABLET 650 MG PO ×2 (11:19→20:28)
[2020-11-24] MEDS: LORazepam INJ (*CRX) 2 MG/ML VIAL 0.5 MG IV PUSH (12:27)
[2020-11-24] MEDS: methylPREDNISolone SOD SUCC 40 MG VIAL IV PUSH ×3 (12:28→23:12)
[2020-11-24] MEDS: ALBUTEROL SULFATE NEB 2.5 MG/0.5 ML INH INHALATION ×3 (13:00→19:58)
--- NOTE | 2020-11-24 14:33 | PM.IMPN ---
Progress Note: A&P Assessment and Plan (1) COPD (chronic obstructive pulmonary disease): Code(s): J44.9 - Chronic obstructive pulmonary disease, unspecified Status: Acute Assessment and Plan: Continue with Solu-Medrol and nebulizer treatments. ABG reviewed today continue BIPAP (2) CHF (congestive heart failure), NYHA class I: Code(s): I50.9 - Heart failure, unspecified Status: Chronic Assessment and Plan: Continue with metoprolol (3) Acute respiratory failure with hypoxia and hypercarbia: Code(s): J96.01 - Acute respiratory failure with hypoxia; J96.02 - Acute respiratory failure with hypercapnia Status: Acute Assessment and Plan: Patient is currently on the BiPAP and she has hypercapnia and hypoxia, Pulmology consulted. (4) Hyperlipidemia: Code(s): E78.5 - Hyperlipidemia, unspecified Status: Chronic Assessment and Plan: Continue with simvastatin. (5) Anxiety: Code(s): F41.9 - Anxiety disorder, unspecified Status: Chronic Assessment and Plan: Continue with IV Ativan and continue Celexa Subjective Date/time seen: 11/24/20 14:33 Interval history: 75-year-old female patient who has a history of COPD and diastolic congestive heart failure. Still sob at rest on BIPAP pulmology consult ordered, CXR ordered and daily ABGs, continue on BIPAP today. Review of Systems Review of Systems: All systems reviewed & are unremarkable except as noted in HPI and below Exam Const: General: cooperative, alert and Physically active Nutritional Appearance: average body habitus and well nourished Orientation/consciousness: oriented to person, oriented to place, oriented to time and patient oriented x3 Limitations: no limitations HENMT: Head: normal to inspection, No palpable skull fracture present, normocephalic and atraumatic Ears: hearing grossly normal bilaterally and external ears normal General nose exam: Normal external nose present, Normal nares present and No nasal polyps present Eyes: General: appearance normal, both eyes and all related structures Alignment and Position: alignment normal Periorbital: periorbital findings normal Eyelids: eyelids normal Conjunctivae: conjunctivae normal Sclera: sclerae normal Cornea: corneas normal Pupils: Equal, round and reactive pupils present and Pupil accommodation reflex normal EOM: EOMs intact bilaterally Neck: Neck: normal visual inspection, full ROM, no lymphadenopathy, trachea midline and supple Thyroid: thyroid normal Carotids: normal carotid upstroke Lymphatic: no lymphadenopathy noted Chest: Chest palpation & inspection: normal inspection of the chest Resp: Effort & Inspection: retractions (Currently on a BiPAP) Auscultation: wheezes and diminished lung sounds Percussion: percussion normal Cardio: Palpation: normal PMI Rate: regular rate Rhythm: regular rhythm Heart sounds: S1 normal heart sound present and S2 normal heart sound present Peripheral pulses: Peripheral pulses 2+ throughout Extrem: Right upper extremity: normal to inspection Left upper extremity: normal to inspection Right lower extremity: normal to inspection Left lower extremity: normal to inspection Psych: Appearance: grossly normal Mental Status: mental status grossly normal Speech and movement: Normal speech and movement present Affect: normal affect Attitude: cooperative Thought process: Normal thought process present Insight: Good insight present (Psych) Judgement: Good judgement present (Psych) Objective Data Vital Signs Vital Signs: Vital Signs - 24 hr 11/23/20 15:46 11/23/20 16:00 11/23/20 17:10 Temperature 36.4 C Pulse Rate 99 97 95 Respiratory Rate 22 H 18 Blood Pressure 125/75 Pulse Oximetry 98 98 96 11/23/20 17:37 11/23/20 20:00 11/23/20 20:54 Temperature 36.5 C Pulse Rate 94 92 86 Respiratory Rate 19 19 Blood Pressure 115/52 L Pulse Oximetry 95 95 11/23/20
[2020-11-25] VITALS (29 sets, daily range): BP systolic 128–144; BP diastolic 58–74; PULSE 86–110; RESP 16–22; TEMP 36.1–36.5; O2SAT 90–100
[2020-11-25] MEDS: ALBUTEROL SULFATE NEB 2.5 MG/0.5 ML INH INHALATION ×6 (00:25→20:49)
[2020-11-25] MEDS: IPRATROPIUM BR 0.02% INH SOLN 0.5 MG/2.5 ML VIAL INHALATION ×6 (00:25→20:49)
[2020-11-25] MEDS: methylPREDNISolone SOD SUCC 40 MG VIAL IV PUSH (05:15)
[2020-11-25] MEDS: ACETAMINOPHEN 325 MG TABLET 650 MG PO ×3 (08:07→20:42)
[2020-11-25] MEDS: CITALOPRAM HYDROBROMIDE 20 MG TABLET 40 MG PO (08:07)
[2020-11-25] MEDS: METOPROLOL SUCCINATE EXT REL 25 MG TABCR PO (08:07)
[2020-11-25] MEDS: SIMVASTATIN 10 MG TABLET PO (08:07)
--- NOTE | 2020-11-25 09:06 | PM.PNPUL ---
Progress Note: A&P Assessment and Plan (1) COPD (chronic obstructive pulmonary disease): Code(s): J44.9 - Chronic obstructive pulmonary disease, unspecified Status: Acute Assessment and Plan: patient with a history of COPD with chronic hypoxemic and hypercarbic respiratory failure on home O2 and noninvasive ventilation at night. Currently patient with COPD exacerbation without evidence of pneumonia, BNP is mildly elevated at 980. I will check a D-dimer and if positive will obtain a CT angiogram of the chest. 11/24 Patient is currently on BiPAP set rate 18, 14/7, 35% with saturations of 100% and states that she is improving slowly. Patient has a few end expiratory wheezes. Will place the patient on albuterol 2.5 mg q.4 hours nebulized, ipratropium 0.5 mg q.4 hours nebulized, and Solu-Medrol 40 mg IV q.6. 11/25 Improved, will change to prednisone 50 PO today, continue albuterol and ipratroprium nebs Q 4. (2) Acute respiratory failure with hypoxia and hypercarbia: Code(s): J96.01 - Acute respiratory failure with hypoxia; J96.02 - Acute respiratory failure with hypercapnia Status: Acute Assessment and Plan: Patient admitted with a blood gas of 6 pH 7.26/56/56 on 3 L nasal cannula. Patient has chronic hypoxemic and hypercarbic respiratory failure and would benefit from home noninvasive ventilation. 11/24 Patient states that she has a home machine and I will obtain a download from [employer] to assess her settings and compliance. In the meantime will continue noninvasive ventilation. Download obtained and she was unable to toelrate AVAPS-AE mode and returned machine after 2 weeks. 11/25 Unable to tolerate noninvasive ventilation. Will wean FIO2 to maintain sats > 90%. On 2 L at night and will obtain Apnea link on 2 L tonight. Subjective Date/time seen: 11/25/20 09:06 Interval history: This is a new pulmonary consult for COPD with chronic hypoxemic and hypercarbic respiratory failure. 75 year-old woman with a history of COPD on 2 L oxygen at night and home noninvasive ventilation, who is followed in the Pulmonary Clinic in last seen on 08/06/2020. Patient was admitted on 11/21 with 2 days worsening shortness of breath despite using her home nebulizer machine. Patient had a blood gas in the emergency room with a pH of 7.26/ PaCO2 56 and was placed on BiPAP. Patient was treated with steroids bronchodilators and admitted to the hospital with a COPD exacerbation. 11/24 Patient is currently on BiPAP set rate 18, 14/7, 35% with Saturations of 100% and states that she is improving slowly. Patient denies any fever, chills and on exam has a few end expiratory wheezes. Patient has a headache but denies pain otherwise. 11/25 Patient did not tolerate BiPAP last night. Previously she could not tolerate AVAPS-AE mode at home on 07/27. On 3 L NC with sats 100%. Improved but remains SOB. No wheezes today. DATA: LDCT 04/16/20 severe emphysema. There is chronic scarring at the lung apices with areas of calcification. There is mild atelectasis bilaterally. A calcified lingular nodule is consistent with old granulomatous disease. No pleural effusion. The heart size is normal. There are coronary artery calcifications. No pericardial effusion. Calcifications in the spleen are consistent with old granulomatous disease. 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 Echo 06/12/20 Left ventricular systolic function is hyperdynamic, estimated at >70%. Mild pulmHTN, RVSP 41mmHg. Hgb 14.4&Hct 43.6 04/25/20 normal. Patient wore AVAPS AE for two weeks in 07/27 and then returned it as she could not tolerate it and could not sleep with it on. Review of Systems Review of Systems: All systems reviewed & are unremarkable except as noted in HPI and below Eyes: Eyes: Reports no additional eye complaints ENT: Reports system reviewed and no additional complaints, except as documented Cardiovascular: Cardiovascu
[2020-11-25] MEDS: predniSONE 10 MG TABLET 50 MG PO (11:47)
--- NOTE | 2020-11-25 13:16 | PCPTNOTE ---
Attempted PT evaluation. Pt reports not feeling well and agreeable to attempting eval after an hour of rest. Pt checked on after ~1 hour and stating she is not feeling well and refusing participation this date. Carly Askew, CHRIST
--- NOTE | 2020-11-25 17:06 | PM.IMPN ---
Progress Note: A&P Assessment and Plan (1) COPD (chronic obstructive pulmonary disease): Code(s): J44.9 - Chronic obstructive pulmonary disease, unspecified Status: Acute Assessment and Plan: Continue with Solu-Medrol and nebulizer treatments. ABG reviewed today continue BIPAP 11/25/20 17:06 Patient is 75-year-old with history of COPD with chronic hypoxemic and hypercarbic respiratory failure on home oxygen and uses BiPAP at night presented with a examination of COPD seen by pulmonology being treated with steroid and updraft as well as her BiPAP settings a being adjusted to maximize her respiratory status and reduce the CO2, currently patient states feeling better not a short of breath, patient is seen by policy adviser and BiPAP was adjusted plan is to monitor overnight and reassess her tomorrow, her is present in the answered all his questions. (2) CHF (congestive heart failure), NYHA class I: Code(s): I50.9 - Heart failure, unspecified Status: Chronic Assessment and Plan: Continue with metoprolol (3) Acute respiratory failure with hypoxia and hypercarbia: Code(s): J96.01 - Acute respiratory failure with hypoxia; J96.02 - Acute respiratory failure with hypercapnia Status: Acute Assessment and Plan: Patient is currently on the BiPAP and she has hypercapnia and hypoxia, Pulmology consulted. (4) Hyperlipidemia: Code(s): E78.5 - Hyperlipidemia, unspecified Status: Chronic Assessment and Plan: Continue with simvastatin. (5) Anxiety: Code(s): F41.9 - Anxiety disorder, unspecified Status: Chronic Assessment and Plan: Continue with IV Ativan and continue Celexa Subjective Date/time seen: 11/25/20 17:06 Patient is 75-year-old with history of COPD with chronic hypoxemic and hypercarbic respiratory failure on home oxygen and uses BiPAP at night presented with a examination of COPD seen by pulmonology being treated with steroid and updraft as well as her BiPAP settings a being adjusted to maximize her respiratory status and reduce the CO2, currently patient states feeling better not a short of breath, patient is seen by policy adviser and BiPAP was adjusted plan is to monitor overnight and reassess her tomorrow, her is present in the answered all his questions. Review of Systems Review of Systems: All systems reviewed & are unremarkable except as noted in HPI and below Exam Narrative: Exam Narrative: Patient is comfortable, NAD HEENT: eyes are clear and none icteric on BiPAP LUNGS: Bilateral fair air entry with minimal wheezing and rhonchi HEART: RR S1S2 ABD: BS+, Soft and nontender Lower extremities: no edema SKIN: nonjaundiced Neuro: grossly intact. Objective Data Vital Signs Vital Signs: Vital Signs - 24 hr 11/24/20 17:57 11/24/20 19:59 11/24/20 20:00 Temperature Pulse Rate 94 97 82 Respiratory Rate 22 H 16 Blood Pressure Pulse Oximetry 100 11/24/20 20:03 11/24/20 20:09 11/24/20 20:22 Temperature 97.2 F L Pulse Rate 97 99 107 H Respiratory Rate 20 16 Blood Pressure 133/73 Pulse Oximetry 99 100 11/24/20 21:50 11/24/20 23:32 11/24/20 23:47 Temperature 97.7 F Pulse Rate 107 H 83 83 Respiratory Rate 16 16 Blood Pressure 127/68 Pulse Oximetry 100 100 11/25/20 00:25 11/25/20 00:33 11/25/20 02:00 Temperature Pulse Rate 91 92 90 Respiratory Rate 20 20 Blood Pressure Pulse Oximetry 11/25/20 03:28 11/25/20 03:34 11/25/20 03:45 Temperature Pulse Rate 86 89 89 Respiratory Rate 20 20 20 Blood Pressure Pulse Oximetry 100 11/25/20 03:55 11/25/20 05:53 11/25/20 07:22 Temperature 97 F L Pulse Rate 86 86 99 Respiratory Rate 16 20 Blood Pressure 128/58 L Pulse Oximetry 100 93 11/25/20 07:34 11/25/20 08:00 11/25/20 08:07 Temperature Pulse Rate 94 94 96 Respiratory Rate 20 Blood Pressure Pulse Oximetry 99 11/25/20 08:21
[2020-11-26] VITALS (17 sets, daily range): BP systolic 111–156; BP diastolic 52–82; PULSE 72–111; RESP 14–22; TEMP 36.1–36.6; O2SAT 90–100
[2020-11-26] MEDS: IPRATROPIUM BR 0.02% INH SOLN 0.5 MG/2.5 ML VIAL INHALATION ×5 (05:12→21:12)
[2020-11-26] MEDS: ALBUTEROL SULFATE NEB 2.5 MG/0.5 ML INH INHALATION ×5 (05:12→21:12)
[2020-11-26] MEDS: ACETAMINOPHEN 325 MG TABLET 650 MG PO ×2 (08:46→20:07)
[2020-11-26] MEDS: SIMVASTATIN 10 MG TABLET PO (08:47)
[2020-11-26] MEDS: predniSONE 10 MG TABLET 50 MG PO (08:47)
[2020-11-26] MEDS: METOPROLOL SUCCINATE EXT REL 25 MG TABCR PO (08:48)
[2020-11-26] MEDS: CITALOPRAM HYDROBROMIDE 20 MG TABLET 40 MG PO (08:48)
--- NOTE | 2020-11-26 10:13 | PM.PNPUL ---
Progress Note: A&P Assessment and Plan (1) COPD (chronic obstructive pulmonary disease): Code(s): J44.9 - Chronic obstructive pulmonary disease, unspecified Status: Acute Assessment and Plan: patient with a history of COPD with chronic hypoxemic and hypercarbic respiratory failure on home O2 and noninvasive ventilation at night. Currently patient with COPD exacerbation without evidence of pneumonia, BNP is mildly elevated at 980. I will check a D-dimer and if positive will obtain a CT angiogram of the chest. 11/24 Patient is currently on BiPAP set rate 18, 14/7, 35% with saturations of 100% and states that she is improving slowly. Patient has a few end expiratory wheezes. Will place the patient on albuterol 2.5 mg q.4 hours nebulized, ipratropium 0.5 mg q.4 hours nebulized, and Solu-Medrol 40 mg IV q.6. 11/25 Improved, will change to prednisone 50 PO today, continue albuterol and ipratroprium nebs Q 4. 11/26 Slowly improving, close to baseline. On room air with sats 90% now. Patient feels she is better and likley able to go home on 11/27 If stable overnight, discharge 11/27 of these pulmonary medications: Prednisone 50 mg PO for 3 more days (last dose 11/29) Breztri inhaler (160/9/4.8) at 2 puffs BID Rescue albuterol 2 puffs Q 4 H PRN SOB or wheezing Oxygen as per home O2 assessment which I ahve ordered 2 L NC when sleeps. Follow up with previously scheduled pulmonary clinic follow up on 12/17 14:00 (2) Acute respiratory failure with hypoxia and hypercarbia: Code(s): J96.01 - Acute respiratory failure with hypoxia; J96.02 - Acute respiratory failure with hypercapnia Status: Acute Assessment and Plan: Patient admitted with a blood gas of 6 pH 7.26/56/56 on 3 L nasal cannula. Patient has chronic hypoxemic and hypercarbic respiratory failure and would benefit from home noninvasive ventilation. 11/24 Patient states that she has a home machine and I will obtain a download from [employer] to assess her settings and compliance. In the meantime will continue noninvasive ventilation. Download obtained and she was unable to toelrate AVAPS-AE mode and returned machine after 2 weeks. 11/25 Unable to tolerate noninvasive ventilation. Will wean FIO2 to maintain sats > 90%. On 2 L at night and will obtain Apnea link on 2 L tonight. 11/26 Unable to tolerate noninvasive ventilation, Patient had an overnight oximetry on 2 L nasal cannula which is her home setting that demonstrated a average saturation of 97%, Fiordaliza saturation 92%, assist time with saturations less than or equal to 88% was 0 minutes. Continue 2 L at night. Subjective Date/time seen: 11/26/20 10:13 Interval history: This is a new pulmonary consult for COPD with chronic hypoxemic and hypercarbic respiratory failure. 75 year-old woman with a history of COPD on 2 L oxygen at night and home noninvasive ventilation, who is followed in the Pulmonary Clinic in last seen on 08/06/2020. Patient was admitted on 11/21 with 2 days worsening shortness of breath despite using her home nebulizer machine. Patient had a blood gas in the emergency room with a pH of 7.26/ PaCO2 56 and was placed on BiPAP. Patient was treated with steroids bronchodilators and admitted to the hospital with a COPD exacerbation. 11/24 Patient is currently on BiPAP set rate 18, 14/7, 35% with Saturations of 100% and states that she is improving slowly. Patient denies any fever, chills and on exam has a few end expiratory wheezes. Patient has a headache but denies pain otherwise. 11/25 Patient did not tolerate BiPAP last night. Previously she could not tolerate AVAPS-AE mode at home on 07/27, will DC. On 3 L NC with sats 100%. Improved but remains SOB. No wheezes today. 11/26 Slowly improving, close to baseline. On room air with sats 90% now. Patient had an overnight oximetry on 2 L nasal cannula which is her home setting that demonstrated a average saturation of 97%, Fiordaliza saturation 9
--- NOTE | 2020-11-26 10:39 | PCPTNOTE ---
Attempted PT eval. Pt working w/ [facility]. States she has a headache. Will try again at later time.
--- NOTE | 2020-11-26 14:19 | PM.IMPN ---
Progress Note: A&P Assessment and Plan (1) COPD (chronic obstructive pulmonary disease): Code(s): J44.9 - Chronic obstructive pulmonary disease, unspecified Status: Acute Assessment and Plan: Continue with Solu-Medrol and nebulizer treatments. ABG reviewed today continue BIPAP 11/26/20 14:11/25 Patient is 75-year-old with history of COPD with chronic hypoxemic and hypercarbic respiratory failure on home oxygen and uses BiPAP at night presented with a examination of COPD seen by pulmonology being treated with steroid and updraft as well as her BiPAP settings a being adjusted to maximize her respiratory status and reduce the CO2, currently patient states feeling better not a short of breath, patient is seen by java sdet and BiPAP was adjusted plan is to monitor overnight and reassess her tomorrow, her is present in the answered all his questions. 0623 discussed with java sdet today patient doing better on 2 L with noninvesive ventilator patient is unable to tolerate however overnight saturation high 97 and low 92% on 2 L, java sdet is recommending monitor patient overnight remains clinically stable will discharge the patient home tomorrow (2) CHF (congestive heart failure), NYHA class I: Code(s): I50.9 - Heart failure, unspecified Status: Chronic Assessment and Plan: Continue with metoprolol (3) Acute respiratory failure with hypoxia and hypercarbia: Code(s): J96.01 - Acute respiratory failure with hypoxia; J96.02 - Acute respiratory failure with hypercapnia Status: Acute Assessment and Plan: Patient is currently on the BiPAP and she has hypercapnia and hypoxia, Pulmology consulted. (4) Hyperlipidemia: Code(s): E78.5 - Hyperlipidemia, unspecified Status: Chronic Assessment and Plan: Continue with simvastatin. (5) Anxiety: Code(s): F41.9 - Anxiety disorder, unspecified Status: Chronic Assessment and Plan: Continue with IV Ativan and continue Celexa Subjective Date/time seen: 11/26/20 14:11/25 Patient is 75-year-old with history of COPD with chronic hypoxemic and hypercarbic respiratory failure on home oxygen and uses BiPAP at night presented with a examination of COPD seen by pulmonology being treated with steroid and updraft as well as her BiPAP settings a being adjusted to maximize her respiratory status and reduce the CO2, currently patient states feeling better not a short of breath, patient is seen by java sdet and BiPAP was adjusted plan is to monitor overnight and reassess her tomorrow, her is present in the answered all his questions. 0623 discussed with java sdet today patient doing better on 2 L with noninvesive ventilator patient is unable to tolerate however overnight saturation high 97 and low 92% on 2 L, java sdet is recommending monitor patient overnight remains clinically stable will discharge the patient home tomorrow. Review of Systems Review of Systems: All systems reviewed & are unremarkable except as noted in HPI and below Exam Narrative: Exam Narrative: Patient is comfortable, NAD HEENT: eyes are clear and none icteric on BiPAP LUNGS: Bilateral fair air entry with minimal wheezing and rhonchi HEART: RR S1S2 ABD: BS+, Soft and nontender Lower extremities: no edema SKIN: nonjaundiced Neuro: grossly intact. Objective Data Vital Signs Vital Signs: Vital Signs - 24 hr 11/25/20 16:00 11/25/20 16:38 11/25/20 16:57 Temperature 97.4 F L Pulse Rate 96 110 H 98 Respiratory Rate 22 H 20 20 Blood Pressure 144/65 H Pulse Oximetry 98 11/25/20 20:00 11/25/20 20:03 11/25/20 20:49 Temperature 97.6 F Pulse Rate 93 95 91 Respiratory Rate 20 16 20 Blood Pressure 135/74 Pulse Oximetry 96 97 11/25/20 20:56 11/25/20 20:59 11/25/20 22:22 Temperature Pulse Rate 91 93 93 Respiratory Rate 20 Blood Pressure Pulse Oximetry 96 96 11/25/20 23:
--- NOTE | 2020-11-26 21:19 | PC.NURSE ---
This patient, Ana Laura Monzon, was transferred to [[id number]] on 11/26/20 at 2121. Personal belongings sent with patient. Report given to [Rizwan heredia ]. Appropriate documentation sent with patient.
[2020-11-27] VITALS (11 sets, daily range): BP systolic 145; BP diastolic 77; PULSE 73–119; RESP 18–22; TEMP 36.4; O2SAT 90–93
--- NOTE | 2020-11-27 02:03 | PCRCNOTE ---
Window of time for administration has passed. See next scheduled administration.
[2020-11-27] MEDS: IPRATROPIUM BR 0.02% INH SOLN 0.5 MG/2.5 ML VIAL INHALATION ×3 (05:04→11:39)
[2020-11-27] MEDS: ALBUTEROL SULFATE NEB 2.5 MG/0.5 ML INH INHALATION ×3 (05:04→11:39)
[2020-11-27] MEDS: ACETAMINOPHEN 325 MG TABLET 650 MG PO (07:41)
[2020-11-27] MEDS: METOPROLOL SUCCINATE EXT REL 25 MG TABCR PO (07:42)
[2020-11-27] MEDS: predniSONE 10 MG TABLET 50 MG PO (07:42)
[2020-11-27] MEDS: CITALOPRAM HYDROBROMIDE 20 MG TABLET 40 MG PO (07:42)
[2020-11-27] MEDS: SIMVASTATIN 10 MG TABLET PO (07:43)
--- NOTE | 2020-11-27 10:04 | PCRCNOTE ---
HOME O2 EVAL COMPLETE, NO REQUIREMENTS
--- NOTE | 2020-11-27 10:17 | PM.PNPUL ---
Progress Note: A&P Assessment and Plan (1) COPD (chronic obstructive pulmonary disease): Code(s): J44.9 - Chronic obstructive pulmonary disease, unspecified Status: Acute Assessment and Plan: patient with a history of COPD with chronic hypoxemic and hypercarbic respiratory failure on home O2 and noninvasive ventilation at night. Currently patient with COPD exacerbation without evidence of pneumonia, BNP is mildly elevated at 980. I will check a D-dimer and if positive will obtain a CT angiogram of the chest. 11/24 Patient is currently on BiPAP set rate 18, 14/7, 35% with saturations of 100% and states that she is improving slowly. Patient has a few end expiratory wheezes. Will place the patient on albuterol 2.5 mg q.4 hours nebulized, ipratropium 0.5 mg q.4 hours nebulized, and Solu-Medrol 40 mg IV q.6. 11/25 Improved, will change to prednisone 50 PO today, continue albuterol and ipratroprium nebs Q 4. 11/26 Slowly improving, close to baseline. On room air with sats 90% now. Patient feels she is better and likley able to go home on 11/27 11/27 Discharge on these pulmonary medications: Prednisone 50 mg PO for 3 more days (last dose 11/29) Breztri inhaler (160/9/4.8) at 2 puffs BID Rescue albuterol 2 puffs Q 4 H PRN SOB or wheezing Oxygen as per home O2 assessment which I have ordered 2 L NC when sleeps. Follow up with previously scheduled pulmonary clinic follow up on 12/17 14:00 (2) Acute respiratory failure with hypoxia and hypercarbia: Code(s): J96.01 - Acute respiratory failure with hypoxia; J96.02 - Acute respiratory failure with hypercapnia Status: Acute Assessment and Plan: Patient admitted with a blood gas of 6 pH 7.26/56/56 on 3 L nasal cannula. Patient has chronic hypoxemic and hypercarbic respiratory failure and would benefit from home noninvasive ventilation. 11/24 Patient states that she has a home machine and I will obtain a download from [employer] to assess her settings and compliance. In the meantime will continue noninvasive ventilation. Download obtained and she was unable to toelrate AVAPS-AE mode and returned machine after 2 weeks. 11/25 Unable to tolerate noninvasive ventilation. Will wean FIO2 to maintain sats > 90%. On 2 L at night and will obtain Apnea link on 2 L tonight. 11/26 Unable to tolerate noninvasive ventilation, Patient had an overnight oximetry on 2 L nasal cannula which is her home setting that demonstrated a average saturation of 97%, Fiordaliza saturation 92%, assist time with saturations less than or equal to 88% was 0 minutes. Continue 2 L at night. 11/27 Home O2 assessment prior to discharge. Subjective Date/time seen: 11/27/20 10:17 Interval history: This is a new pulmonary consult for COPD with chronic hypoxemic and hypercarbic respiratory failure. 75 year-old woman with a history of COPD on 2 L oxygen at night and home noninvasive ventilation, who is followed in the Pulmonary Clinic in last seen on 08/06/2020. Patient was admitted on 11/21 with 2 days worsening shortness of breath despite using her home nebulizer machine. Patient had a blood gas in the emergency room with a pH of 7.26/ PaCO2 56 and was placed on BiPAP. Patient was treated with steroids bronchodilators and admitted to the hospital with a COPD exacerbation. 11/24 Patient is currently on BiPAP set rate 18, 14/7, 35% with Saturations of 100% and states that she is improving slowly. Patient denies any fever, chills and on exam has a few end expiratory wheezes. Patient has a headache but denies pain otherwise. 11/25 Patient did not tolerate BiPAP last night. Previously she could not tolerate AVAPS-AE mode at home on 07/27, will DC. On 3 L NC with sats 100%. Improved but remains SOB. No wheezes today. 11/26 Slowly improving, close to baseline. On room air with sats 90% now. Patient had an overnight oximetry on 2 L nasal cannula which is her home setting that demonstrated a average saturation
--- NOTE | 2020-11-27 10:43 | PM.DS ---
DS: Admitting Diagnosis Admitting Diagnosis Admitting Diagnosis: shortness of breath DS: Discharge Diagnosis Discharge Diagnosis (1) COPD (chronic obstructive pulmonary disease): Code(s): J44.9 - Chronic obstructive pulmonary disease, unspecified Status: Acute Assessment and Plan: Continue with Solu-Medrol and nebulizer treatments. ABG reviewed today continue BIPAP 11/26/20 14:19 11/25 Patient is 75-year-old with history of COPD with chronic hypoxemic and hypercarbic respiratory failure on home oxygen and uses BiPAP at night presented with a examination of COPD seen by pulmonology being treated with steroid and updraft as well as her BiPAP settings a being adjusted to maximize her respiratory status and reduce the CO2, currently patient states feeling better not a short of breath, patient is seen by policy issue clerk and BiPAP was adjusted plan is to monitor overnight and reassess her tomorrow, her is present in the answered all his questions. 0623 discussed with policy issue clerk today patient doing better on 2 L with noninvesive ventilator patient is unable to tolerate however overnight saturation high 97 and low 92% on 2 L, policy issue clerk is recommending monitor patient overnight remains clinically stable will discharge the patient home tomorrow (2) CHF (congestive heart failure), NYHA class I: Code(s): I50.9 - Heart failure, unspecified Status: Chronic Assessment and Plan: Continue with metoprolol (3) Acute respiratory failure with hypoxia and hypercarbia: Code(s): J96.01 - Acute respiratory failure with hypoxia; J96.02 - Acute respiratory failure with hypercapnia Status: Acute Assessment and Plan: Patient is currently on the BiPAP and she has hypercapnia and hypoxia, Pulmology consulted. (4) Hyperlipidemia: Code(s): E78.5 - Hyperlipidemia, unspecified Status: Chronic Assessment and Plan: Continue with simvastatin. (5) Anxiety: Code(s): F41.9 - Anxiety disorder, unspecified Status: Chronic Assessment and Plan: Continue with IV Ativan and continue Celexa DS: Summary Hospital Course Reason for hospitalization: this is a 75-year-old female patient who has a history of COPD and diastolic congestive heart failure. Does not wear her CPAP machine. The patient has been more short of breath the last 2 days. The patient stated that she has nebulizer machine at home and she has been using that without any relief. The patient was given dexamethasone, magnesium and a nebulizer treatment per EMS. 7.260 CO2 is 56.3. O2 saturation 84.3. Patient was placed on BiPAP 05/11. Initially the patient was refusing a BiPAP and then they had a long About intubation. The patient stated that she did not want to be intubated. At this time she is is on the BiPAP. Chest x-ray was read as chronic hyperinflation. No acute cardiopulmonary findings. Patient was given a albuterol nebulizer IV fluids and Ativan in the emergency room. The patient is being admitted to inpatient services on the date of service on 11/21/2020 Chief Complaint: sob Hospital Course: 11/25 Patient is 75-year-old with history of COPD with chronic hypoxemic and hypercarbic respiratory failure on home oxygen and uses BiPAP at night presented with a examination of COPD seen by pulmonology being treated with steroid and updraft as well as her BiPAP settings a being adjusted to maximize her respiratory status and reduce the CO2, currently patient states feeling better not a short of breath, patient is seen by policy issue clerk and BiPAP was adjusted plan is to monitor overnight and reassess her tomorrow, her is present in the answered all his questions. 0623 discussed with policy issue clerk today patient doing better on 2 L with noninvesive ventilator patient is unable to tolerate however overnight saturation high 97 and low 92% on 2 L, policy issue clerk is recommending monitor patient overnight remains cli
== END 2020-11-27 12:04 | disposition home or self-care (01) | DRG 189 ==
LOC: ANHED 12:30 → ANHIMU 16:32 → ANH3MEDSUR 11-27 10:42 → ANHIMU 11-28 13:53
PROVIDERS: Family Medicine; Internal Medicine Pulmonary Disease; Nurse Practitioner; Admitting Provider Internal Medicine; Emergency Provider Emergency Medicine; PCP Internal Medicine; Visit Provider Family Medicine
DX: J96.21 Acute and chronic respiratory failure with hypoxia (principal); I50.32 Chronic diastolic (congestive) heart failure; J44.1 Chronic obstructive pulmonary disease with (acute) exacerbation; J96.22 Acute and chronic respiratory failure with hypercapnia; G47.33 Obstructive sleep apnea (adult) (pediatric); F41.9 Anxiety disorder, unspecified; Z99.81 Dependence on supplemental oxygen; Z79.899 Other long term (current) drug therapy
CPT/HCPCS: 36415; 36600; 71045; 71275; 80048; 81001; 82375; 82805; 83050; 83605; 83735; 83880; 84439; 84443; 84480; 85025; 85027; 85380; 93005; 94003; 94618; 94640; 94762; 96361; 96374; 97110; 97161; 97165; 97535; 99285; A9270; J0131; J2060; J2920; J2930; J7030; J7512; Q9967

== ENCOUNTER 2021-05-14 11:11 | Outpatient (CLI) | payer MEDICARE, OTHER, SELFPAY ==
--- NOTE | ~2021-05-14 | US_ITS ---
EXAMINATION: US aorta DATE: 05/14/2021 12:15 INDICATION: Abdominal aortic aneurysm TECHNIQUE: Grayscale, color Doppler, and pulsed Doppler images of the aorta and common iliac arteries were obtained. COMPARISON: None. FINDINGS: The proximal aorta measures 2.5 cm. The mid aorta measures 2.1 cm. The distal aorta measures 2.2 cm. The right common iliac artery measures 1.0 cm. The left common iliac artery measures 1.0 cm. IMPRESSION: 1. Normal caliber abdominal aorta. Reviewed, dictated and finalized at location B. MAKER
== END 2021-05-14 11:12 | disposition home or self-care (01) ==
PROVIDERS: PCP Internal Medicine; Visit Provider Specialist
DX: I71.4 Abdominal aortic aneurysm, without rupture (principal)
CPT/HCPCS: 76775

== ENCOUNTER 2021-06-15 12:26 | Outpatient (CLI) | payer MEDICARE, OTHER, SELFPAY ==
--- NOTE | ~2021-06-15 | CT_ITS ---
EXAMINATION:CT lung screening DATE: 06/15/2021 13:43 INDICATION: Personal history of nicotine dependence. Smoker who quit 6 years ago with 100 pack year h istory. TECHNIQUE: Computed tomography (CT) of the chest was performed without intravenous contrast. Automate d exposure control and iterative reconstruction technique were employed. The dose-length product (DLP ) was 57.82 mGy-cm. COMPARISON: Chest CT 11/24/2020, 04/16/2020, abdominal aorta ultrasound 09/12/2020 FINDINGS: There is severe emphysema. There is stable scarring at the lung apices. Calcified bilateral lung nodules are consistent with old granulomatous disease. No pleural effusion. The heart size is n ormal. There are coronary artery calcifications. No pericardial effusion. There is severe cervical an d lumbar spondylosis and mild thoracic spondylosis. IMPRESSION: 1. Lung-RADS category 2: Benign appearance or behavior. Continue annual screening with noncontrast lo w-dose chest CT in 12 months. Reviewed, dictated and finalized at location B. SYSTEMS ENGINEER IMPRESSION: 1. Lung-RADS category 2: Benign appearance or behavior. Continue annual screeni ng with noncontrast low-dose chest CT in 12 months.
[2021-06-15 13:08] VITALS: PULSE 115; O2SAT 93
[2021-06-15 13:10] VITALS: PULSE 120; O2SAT 94
[2021-06-15 13:13] VITALS: PULSE 117; O2SAT 90
--- NOTE | 2021-06-15 14:20 | HOMEO2EVAL ---
Evaluation was performed at [facility] Home Oxygen Evaluation RC: Home Oxygen (O2) Evaluation Start: 06/15/21 14:19 Freq: Status: Active Protocol: RPE Activity Type Activity Date Activity User E-Sign Co-Sign Detail Recorded Client Recorded Date Recorded By Document 06/15/21 13:08 KRM [id number] 06/15/21 14:20 KRM Document 06/15/21 13:10 KRM [id number] 06/15/21 14:20 KRM Document 06/15/21 13:13 KRM [id number] 06/15/21 14:20 KRM 06/15/21 06/15/21 06/15/21 13:08 13:10 13:13 Home O2 Evaluation Test Phase Resting Exercise Exercise Oxygen Delivery Room Air Room Air Room Air Pulse Oximetry (90-100 %) 93 94 90 Pulse Rate (60-100 beats/min) 115 H 120 H 117 H Activity Tolerance Fair Ambulation Distance (feet) 100 Ambulation Distance (meters) 30.47 Treatment Charges O2 Evaluation - Outpatient
== END 2021-06-15 12:27 | disposition home or self-care (01) ==
LOC: ANHPFT 12:29
PROVIDERS: PCP Internal Medicine; Visit Provider Nurse Practitioner Family
DX: Z87.891 Personal history of nicotine dependence (principal); R09.02 Hypoxemia
CPT/HCPCS: 71271; 94618

== ENCOUNTER 2022-04-27 09:20 | Inpatient (IN) | payer MEDICARE, OTHER, SELFPAY ==
[2022-04-27] VITALS (23 sets, daily range): BP systolic 93–166; BP diastolic 61–94; PULSE 85–110; RESP 18–32; TEMP 36.3–37.7; O2SAT 92–100; BMI 18.8
--- NOTE | 2022-04-27 | ECHO_ITS ---
Patient Info Name: Ana Laura Monzon Age: 76 years : 1945 Gender: Female Ht: 64 in Wt: 105 lbs BSA: 1.46 m2 HR: 99 bpm BP: 111 / 64 mmHg Heart Rhythm: Sinus Rhythm Technical Quality: Fair Exam Date: 04/27/2022 2:40 PM Exam Location: [facility] Patient Status: Outpatient Admit Date: 04/27/2022 Staff Ordering Physician: Ni Luong APRN Inside Sales Supervisor: Tulio Schwartz RDCS Attending Provider: Francesco Camilo MD Referring Physician: Ag DUMONT; Exam Type: CA echo doppler color flow Study Info Indications R06.00 - Dyspnea, unspecified Complete two-dimensional, color flow and Doppler transthoracic echocardiogram is performed. Summary 1. Complete two-dimensional, color flow and Doppler transthoracic echocardiogram is performed. 2. Normal left ventricular size with thickness at the upper end of normal. Hyperdynamic left ventricular systolic function of all segments with no segmental wall motion abnormalities. Ejection fraction is visually estimated to be greater than 70%. Grade 2 diastolic dysfunction is present. 3. No significant valve disease. 4. Technically difficult study. 5. Normal sinus rhythm. Left Ventricle Left ventricular chamber dimension is normal. Left ventricular systolic function is normal, estimated at >70%. There is no increased left ventricular wall thickness. Left ventricular septal wall motion is normal. The left ventricular diastolic function is normal. Right Ventricle Right ventricular chamber dimension is normal. Right ventricular systolic function is normal. Left Atria Left atrial chamber dimension is normal. Right Atria Right atrial chamber dimension is normal. Aortic Valve The aortic valve is trileaflet. There is moderate aortic valve sclerosis. There is no aortic valve stenosis. There is no aortic valve regurgitation. Pulmonic Valve The pulmonic valve is normal. There is no pulmonic valve stenosis. There is no pulmonic regurgitation. Mitral Valve The mitral valve has normal leaflets. There is no mitral valve stenosis. There is no mitral valve regurgitation. Tricuspid Valve The tricuspid valve leaflets are normal. There is no significant tricuspid valve stenosis. There is trace tricuspid valve regurgitation. No pulmonary hypertension, estimated pulmonary arterial systolic pressure is Empty. Pericardium/Pleural The pericardium appears normal. There is no pericardial effusion. Inferior Vena Cava Normal inferior vena cava with >50% collapse upon inspiration consistent with Empty right atrial pressure, Empty. Aorta The aortic root size at the sinus of Valsalva is normal. The prox ascending aorta size is normal. Left Ventricular Outflow Tract Name Value Normal LVOT 2D LVOT Diameter 2.0 cm LVOT Doppler LVOT Peak Gradient 7 mmHg LVOT Mean Gradient 5 mmHg LVOT VTI 29 cm LVOT VTI/AV VTI Ratio 1.1 LVOT Stroke Volume 90 ml LVOT CO
--- NOTE | ~2022-04-27 | XR_ITS ---
EXAMINATION: XR chest 2V DATE: 04/30/2022 12:01 INDICATION: Shortness of breath TECHNIQUE: PA and lateral views of the chest were obtained. COMPARISON: Chest radiograph dated 04/27/[address] dated 06/15/2021 FINDINGS: Severe emphysema with hyperexpansion lungs, flattening of the diaphragm, increased retrosternal clear space and increased lucency with architectural distortion in the bilateral mid to upper lung zones. Prominent biapical pleural-parenchymal scarring with suture line at the right apex.: Triangular regio n of increased airspace opacity at the medial right upper lung zone which appears increased since the most recent chest radiograph which could represent atelectasis or pneumonia. Calcified pulmonary nod ules in the bilateral upper lung zones consistent with old granulomatous disease. No pulmonary edema, pleural effusion or pneumothorax. Cardiomediastinal silhouette is normal. Cholecystectomy clips in t he right upper quadrant. IMPRESSION: 1. Emphysema with increased density of a wedge-shaped region of lung disease at the medial right uppe r lung zone which could represent new atelectasis and/or pneumonia superimposed over chronic biapical pleural-parenchymal scarring. Reviewed, dictated and finalized at location A. CTOR OF CONTRACTS IMPRESSION: 1. Emphysema with increased density of a wedge-shaped region of lung disease at the medial right upper lung zone which could represent new atelectasis and/or pneumonia superimposed over chronic biapical pleural-parenchymal scarring.
--- NOTE | ~2022-04-27 | XR_ITS ---
XR chest 1V portable 05/08/2022 11:38 Indication: Pneumonia Procedure: AP portable chest Comparison: Comparison to multiple prior studies sequentially, with oldest reviewed study dated 11/24. Findings: There is emphysema. There is chronic apical pleural thickening/scarring. No acute focal pne umonia, edema or effusion. No pleural effusion or pneumothorax. Diffuse osteopenia. No acute osseous abnormality. Impression: 1: No acute cardiopulmonary disease. 2: Emphysema. Reviewed, dictated and finalized at location A. CT SERVICE PROVIDER Impression: 1: No acute cardiopulmonary disease. 2: Emphysema.
--- NOTE | ~2022-04-27 | CT_ITS ---
EXAMINATION: CTA chest PE protocol DATE: 05/02/2022 13:14 INDICATION: Dyspnea. TECHNIQUE: Computed tomography angiography (CTA) of the chest was performed with 100 mL Omnipaque-350 intravenous contrast timed to evaluate the pulmonary arteries. Coronal maximum intensity projection 3D-reconstructions were created by the technologist. Automated exposure control and iterative reconst ruction technique were employed. The dose-length product was 245.88 mGy-cm. COMPARISON: Chest CT 06/15/2021, 11/24/20 FINDINGS: There is severe emphysema. There are chronic airspace opacities with volume loss and calcif ications in the upper lobes, consistent with scarring. No pleural effusion. The heart size is normal. There are coronary artery calcifications. No pericardial effusion. There is no pulmonary embolus. Th ere are changes of cholecystectomy. There is a 3.0 cm saccular aneurysm of suprarenal aorta on the ri ght that gives the aorta a total size of 4.5 x 3.3 cm, increased from 4.0 x 2.8 cm on 11/24/2020. Ther e is severe cervical spondylosis and moderate thoracic spondylosis.. IMPRESSION: 1. No pulmonary embolus. 2. Severe emphysema. 3. 3.0 cm saccular aneurysm of suprarenal aorta on the right that gives the aorta a total size of 4.5 x 3.3 cm, increased from 4.0 x 2.8 cm on 11/24/2020. Reviewed, dictated and finalized at location A. CTOR LEARNING IMPRESSION: 1. No pulmonary embolus. 2. Severe emphysema. 3. 3.0 cm saccular aneurysm of suprarenal aorta on the right that gives the aor ta a total size of 4.5 x 3.3 cm, increased from 4.0 x 2.8 cm on 11/24/2020.
--- NOTE | ~2022-04-27 | XR_ITS ---
EXAMINATION: XR chest 2V DATE: 04/27/2022 11:03 INDICATION: Dyspnea. TECHNIQUE: Frontal and lateral views of the chest were obtained. COMPARISON: Chest single view 11/25/2020, chest CT 06/15/2021 FINDINGS: The lungs are hyperexpanded with lucencies, consistent with emphysema. There is chronic sca rring at the lung apices. There are surgical changes in right lung apex. No pleural effusion or pneum othorax. The heart size is normal. Surgical clips in the right upper quadrant are likely from cholecy stectomy. IMPRESSION: 1. Severe emphysema. Reviewed, dictated and finalized at location A. ET LATHE MACHINIST IMPRESSION: 1. Severe emphysema.
[2022-04-27] MEDS: LORazepam INJ (*CRX) 2 MG/ML VIAL 0.25 MG IV PUSH (09:30)
--- NOTE | 2022-04-27 09:31 | ECG_ITS ---
Measurements Intervals [place] Rate: 107 P: 85 [place]: 172 QRS: 60 QRSD: 106 T: 16 QT: 333 QTc: 445 Interpretive Statements SINUS TACHYCARDIA LEFT ATRIAL ENLARGEMENT MINIMAL Q WAVES- INFERIOR LEADS CONSIDER ANTERIOR INFARCT, AGE INDETERMINATE BORDERLINE ST-T WAVE ABNORMALITY- INFERIOR LEADS BASELINE ARTIFACT- I, II, III, AVR, AVL, AVF, V1-V6 ABNORMAL ECG COMPARED TO ECG 11/21/2020 12:12:00 NO SIGNIFICANT CHANGES Electronically Signed On 04-27-2022 14:00:59 ALCOHOL STILL OPERATOR by Alexis Carlton D.O.
--- NOTE | 2022-04-27 09:35 | ED.GENADULT ---
HPI - General Adult General Chief complaint: Shortness of Breath/Dyspnea Stated complaint: dyspnea since thurs Time Seen by Provider: 04/27/22 09:32 History of Present Illness HPI narrative: 76-year-old female with past medical history of hypertension, chronic respiratory failure, anxiety, CHF, HLD, spontaneous pneumothorax presents for evaluation of shortness of breath. Patient states that shortness of breath has been worsening became more than she can take earlier this morning. Medics have transported her here with CPAP in place and patient feels this is making it more difficult to breathe. She received dexamethasone and albuterol in route. Upon arrival we have removed the CPAP and patient remains greater than 97% on room air although does have significantly increased work of breathing. Related Data Home Medications Medication Instructions Recorded Confirmed budesonide 160 mcg-glycopyr 9 2 inh inhalation BID 04/29/22 05/17/22 mcg-formot 4.8 mcg/actuation HFA inhaler (Breztri Aerosphere) Allergies Allergy/AdvReac Type Severity Reaction Status Date / Time fluticasone furoate AdvReac Severe Rash Verified 05/17/22 14:21 [From Trelegy Ellipta] umeclidinium AdvReac Severe Rash Verified 05/17/22 14:21 [From Trelegy Ellipta] vilanterol AdvReac Severe Rash Verified 05/17/22 14:21 [From Trelegy Ellipta] Review of Systems Review of Systems: My CONSTITUTIONAL: Denies fever, chills, or sweats. EYES: Denies visual changes, redness, or discharge. ENT: Denies rhinorrhea, congestion, sore throat, or otalgia. CARDIOVASCULAR: Denies chest pain, palpitations, or edema. RESPIRATORY: Denies cough or dyspnea. GASTROINTESTINAL: Denies abdominal pain, nausea, vomiting, or diarrhea. GENITOURINARY: Denies dysuria or hematuria. SKIN: Denies rash or itching. MUSCULOSKELETAL: Denies back pain, joint pain, or myalgia. NEUROLOGIC: Denies headache, numbness, or weakness. PSYCHIATRIC: Denies anxiety or depression. [facility] Past Medical History Medical History (Updated 05/20/22 @ 15:03 by Shaun Banda DO) Anxiety CHF (congestive heart failure), NYHA class I Diastolic Chronic respiratory failure 2L nocturnal home O2 COPD (chronic obstructive pulmonary disease) Cystoid macular edema following cataract surgery, bilateral Essential hypertension Former smoker Hyperlipidemia KRIS on CPAP Intolerable of a CPAP Spontaneous pneumothorax Suprarenal aortic aneurysm Surgical History Surgical History H/O cataract extraction Bilateral H/O tubal ligation History of breast biopsy History of cholecystectomy History of total hip arthroplasty Bilateral S/P thoracotomy with pleurodesis, Right spontaneous pneumothorax. ~2004 Family History Family History Father Cerebrovascular accident, Onset Age: 87 Patient's father is Mother Patient's mother is Diabetes mellitus Hypertension Family history of cardiovascular disease Sibling Patient's brother is Family history of obesity Hypertension Patient's brother is in good health Malignant neoplasm of prostate Family history of diabetes mellitus in first degree relative Diabetes mellitus Family history of alcoholism Family history of arthritis Family history of malignant neoplasm of esophagus Social History Social History Social History: The patient lives with her and she has 2 children. Her is a durable power ip attorney for healthcare. 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 She has 1 beagle at home. Smoking packs per day: 2 Smoking cigarettes per day: 40.0 Years smoked: 50 Smoking pack-years: 100.00 Smoking status: Former smoker Tobacco type: cigarettes Second hand tobacco smoke exposure: No Smoking end date:
[2022-04-27] MEDS: MAGNESIUM SULF 1 GM/D5W 100 ML 1 GM/100 ML BAG IVPB (09:45)
[2022-04-27 10:11] LABS: Basophils Percent Auto 0.3 % (0.2-1.2); Eosinophils Percent Auto 0.1 % (0-4.4); Hematocrit 40.1 % (37.0-47.0); Hemoglobin 13.3 g/dL (12.0-15.0); Immature Granulocyte Absolute 0.05 K/mm3 (0.00-0.031); Immature Granulocyte Percent A 0.7 % (0-0.5); Lymphocytes Absolute Auto 0.75 K/mm3 (0.9-3.2); Lymphocytes Percent Auto 10.8 % (18.3-44.2); Mean Corpuscular HGB Conc 33.2 g/dl (32-36); Mean Corpuscular Hemoglobin 33.3 pg (26-34); Mean Corpuscular Volume 100.3 fl (80-100); Monocytes Absolute Auto 0.3 K/mm3 (0.1-0.6); Neutrophils Absolute Auto 5.8 K/mm3 (1.3-6.7); Neutrophils Percent Auto 84.1 % (45.5-73.1); Platelet Count Result 221 k/mm3 (150-375); Red Cell Distribution Width 12.8 % (11.5-14.5); White Blood Count 6.9 K/mm3 (4.5-10.0)
[2022-04-27 10:20] LABS: Alanine Aminotransferase 37 U/L (6-35); Albumin Level 4.7 g/dL (3.5-5.1); Alkaline Phosphatase 79 U/L (38-126); Anion Gap 7 mmol/L (8-16); Aspartate Amino Transferase 64 U/L (14-36); Bilirubin,Total 0.3 mg/dL (0.2-1.3); Blood Urea Nitrogen 14 mg/dL (7-17); Calcium 9.5 mg/dL (8.4-10.2); Carbon Dioxide 29 mmol/L (22-30); Chloride 92 mmol/L (98-107); Estimated Glomerular Filt Rate > 60; Glucose 134 mg/dL (65-110); Magnesium 1.7 mg/dL (1.6-2.3); Potassium 3.8 mmol/L (3.4-5.0); Sodium 128 mmol/L (137-145)
[2022-04-27 10:22] LABS: Prothrombin Time 12.4 Seconds (11.1-14.7)
[2022-04-27 10:23] LABS: Partial Thromboplastin Time 26.4 SECONDS (22.3-36.8)
[2022-04-27] MEDS: ALBUTEROL SULFATE NEB 2.5 MG/3 ML INH 5 MG INHALATION (10:23)
[2022-04-27 10:28] LABS: NT Pro B Type Natriuretic Pept 1570 pg/mL (5-100)
[2022-04-27 10:45] LABS: Influenza A QL RT-PCR Positive (Negative); Influenza B QL RT-PCR Negative (Negative); RSV RNA, RT-PCR Negative (Negative); SARS-CoV-2 RNA PCR Negative
[2022-04-27] MEDS: OSELTAMIVIR PHOSPHATE 75 MG CAPSULE PO ×2 (11:44→20:35)
--- NOTE | 2022-04-27 12:14 | PM.IMHP ---
H&P: HPI History of Present Illness Date/Time: 04/27/22 12:14 Chief Complaint: shortness of breath Narrative: Ana Laura Monzon is a 76 yo female with COPD, hypertension and hyperlipidemia. She presented to the ED today for evaluation of progressively worsening shortness of breath. She reports her symptoms started on of last week with dyspnea on exertion and productive cough with yellow sputum. She called her Program Support Clerk and was prescribed prednisone and doxycycline medications. She reports completing the doxycycline yesterday and was tapering her prednisone, however, her symptoms persisted despite these medications. She currently has a nonproductive cough, headache, anorexia, intermittent sweating episodes, nausea without emesis, loose stool several days ago that has since resolved, and increasing oxygen needs. She has orthopnea chronically. She denies lower extremity edema, abdominal pain, chest pain, palpitations, dizziness or sinus congestion. She has not checked her temperature at home. She reports wearing 2 liters of oxygen at night only, but endorses using her concentrator during the day with 2-3 liters in the past week. She has been compliant with medications and reports increased albuterol nebulizer and MDI use throughout the day. She has not had influenza or pneumococcal vaccinations, nor her COVID19 booster. She has received the 2-dose COVID19 series, however. She reports not leaving her home much, however, her frequents the local [employer] and had the flu last week. In the ED, she had low grade temperature 100F, HR 108, RR 26, BP 93/77, and spOu2 93% on room air. Lab work showed WBC 6.9, with slight increase in neutrophils, stable H/H, sodium 128, chloride 92, BNP 1570, AST 64, ALT 37, Alk phos 79, and Tbili 0.3. Influenza A PCR was positive. Influenza B, RSV and COVID19 were negative. Chest x-ray demonstrated severe emphysema. EKG showed sinus tachycardia 107 bpm with artifact, but no ST elevation or depression. She was treated with Tamiflu 75 mg PO x1, acetaminophen 1gram, albuterol nebulizer, magnesium sulfate 1 gram IV, Lorazepam 0.25 mg IV and furosemide 40 mg IV x1. She will be admitted to the medical floor for management of Influenza A, acute COPD exacerbation and evaluation for heart failure. Review of Systems Review of Systems: All systems reviewed & are unremarkable except as noted in HPI and below PMFSH Past Medical History Medical History (Updated 04/27/22 @ 19:40 by Ni Luong APRN) Anxiety CHF (congestive heart failure), NYHA class I Diastolic Chronic respiratory failure 2L nocturnal home O2 COPD (chronic obstructive pulmonary disease) Cystoid macular edema following cataract surgery, bilateral Essential hypertension Former smoker Hyperlipidemia KRIS on CPAP Intolerable of a CPAP Spontaneous pneumothorax Suprarenal aortic aneurysm [address] 3.8 cm. Resolved on 05/2021 ultrasound. Surgical History Surgical History (Updated 04/27/22 @ 19:06 by Ni Luong APRN) H/O cataract extraction Bilateral H/O tubal ligation History of breast biopsy History of cholecystectomy History of total hip arthroplasty Bilateral S/P thoracotomy with pleurodesis, Right spontaneous pneumothorax. ~2004 Family History Family History Father Cerebrovascular accident, Onset Age: 87 Patient's father is Mother Patient's mother is Diabetes mellitus Hypertension Family history of cardiovascular disease Sibling Patient's brother is Family history of obesity Hypertension Patient's brother is in good health Malignant neoplasm of prostate Family history of diabetes mellitus in first degree relative Diabetes mellitus Family history of alcoholism Family history of arthritis Family history of malignant neoplasm of esophagus Social History Social History (Updated 04/27/22
[2022-04-27] MEDS: POTASSIUM CHLORIDE 20 MEQ TABLET 40 MEQ PO (13:05)
[2022-04-27] MEDS: methylPREDNISolone SOD SUCC 40 MG VIAL IV PUSH ×3 (13:20→23:13)
--- NOTE | 2022-04-27 13:36 | ADMGEN ---
This patient, Ana Laura Monzon, was admitted to [facility] Surg Room 326-01. Patient/family oriented to hospital policies and general routines including ID bracelet, bed and alarms, visiting hours, pain management, procedures, bathroom and other care routines, personal items, smoking policy, room service/diet, and visiting hours. Information on how to activate the Rapid Response Team has been discussed. Patient/Family are encouraged to report perceived risks to care and to ask questions if they do not understand what they are told or what they should do.
[2022-04-27 15:02] LABS: Anion Gap 10 mmol/L (8-16); Blood Urea Nitrogen 16 mg/dL (7-17); Calcium 9.2 mg/dL (8.4-10.2); Carbon Dioxide 28 mmol/L (22-30); Chloride 92 mmol/L (98-107); Estimated CRCL calculation 63 ml/min; Estimated Glomerular Filt Rate > 60; Glucose 162 mg/dL (65-110); Magnesium 2.1 mg/dL (1.6-2.3); Potassium 4.1 mmol/L (3.4-5.0); Sodium 130 mmol/L (137-145)
[2022-04-27] MEDS: ACETAMINOPHEN 325 MG TABLET 650 MG PO (15:33)
[2022-04-27 15:50] LABS: Sodium Urine Random 14 meq/L
[2022-04-27 15:56] LABS: Carboxyhemoglobin 0.3 % THb (0-2.0); Fractional Inspired Oxygen 24 %; HCO3 ABG 30.6 mEq/l (22.0-26.0); Methemoglobin ABG 0.4 %THb (0-1.5); Oxygen Content ABG 17.8 %vol (16.0-22.0); Oxygen Saturation ABG 95.6 % (95.0-100.0); PCO2 ABG 48.8 mmHg (35.0-45.0); PO2 ABG 78.1 mmHg (80.0-100.0); PO2 FiO2 Ratio Arterial Blood 3.25 %; Reduced Hemoglobin 5.3 %THb (0-5.0); Total Hemoglobin 13.4 g/dL (12.0-18.0); pH ABG 7.415 (7.350-7.450)
[2022-04-27 15:57] LABS: Device NASAL CANNULA; Modified Allen's Test Pass; Site Drawn RIGHT RADIAL
[2022-04-27] MEDS: POTASSIUM CHLORIDE 20 MEQ TABLET.ER PO (17:02)
[2022-04-27] MEDS: FUROSEMIDE INJ 40 MG/4 ML VIAL 20 MG IV PUSH (17:03)
[2022-04-27] MEDS: guaiFENesin 12 HR 600 MG TABCR PO (20:35)
[2022-04-27] MEDS: IPRATROPIUM BR 0.02% INH SOLN 0.5 MG/2.5 ML VIAL INHALATION (21:27)
[2022-04-28] VITALS (17 sets, daily range): BP systolic 103–138; BP diastolic 63–83; PULSE 79–117; RESP 18–24; TEMP 35.9–36.9; O2SAT 95–100
[2022-04-28] MEDS: IPRATROPIUM BR 0.02% INH SOLN 0.5 MG/2.5 ML VIAL INHALATION ×4 (02:18→20:07)
[2022-04-28] MEDS: methylPREDNISolone SOD SUCC 40 MG VIAL IV PUSH ×3 (05:01→21:08)
[2022-04-28] MEDS: ONDANSETRON INJ 4 MG/2 ML VIAL IV PUSH (06:18)
[2022-04-28 07:26] LABS: Hematocrit 39.7 % (37.0-47.0); Immature Granulocyte Absolute 0.03 K/mm3 (0.00-0.031); Immature Granulocyte Percent A 0.6 % (0-0.5); Lymphocytes Absolute Auto 0.63 K/mm3 (0.9-3.2); Lymphocytes Percent Auto 11.9 % (18.3-44.2); Mean Corpuscular HGB Conc 32.7 g/dl (32-36); Mean Corpuscular Hemoglobin 33.1 pg (26-34); Mean Platelet Volume 9.1 fl (7.4-10.4); Monocytes Absolute Auto 0.2 K/mm3 (0.1-0.6); Monocytes Percent Auto 4.4 % (2.6-8.5); Neutrophils Absolute Auto 4.4 K/mm3 (1.3-6.7); Neutrophils Percent Auto 83.1 % (45.5-73.1); Platelet Count Result 219 k/mm3 (150-375); Red Blood Count 3.93 M/mm3 (4.2-5.4); Red Cell Distribution Width 12.7 % (11.5-14.5); White Blood Count 5.3 K/mm3 (4.5-10.0)
[2022-04-28 07:27] LABS: Alanine Aminotransferase 39 U/L (6-35); Albumin Level 4.5 g/dL (3.5-5.1); Alkaline Phosphatase 78 U/L (38-126); Anion Gap 9 mmol/L (8-16); Aspartate Amino Transferase 52 U/L (14-36); Bilirubin,Total 0.4 mg/dL (0.2-1.3); Blood Urea Nitrogen 12 mg/dL (7-17); Carbon Dioxide 29 mmol/L (22-30); Chloride 93 mmol/L (98-107); Estimated CRCL calculation 75 ml/min; Estimated Glomerular Filt Rate > 60; Glucose 140 mg/dL (65-110); Potassium 4.4 mmol/L (3.4-5.0); Sodium 131 mmol/L (137-145)
[2022-04-28 08:51] LABS: Hepatitis B Surface Antigen Negative (Negative)
[2022-04-28 08:57] LABS: HAV RESULT Negative (Negative); Hepatitis B Core IgM Result Negative (Negative)
[2022-04-28 09:08] LABS: Hepatitis C Virus Antibody Negative (Negative)
[2022-04-28] MEDS: FUROSEMIDE INJ 40 MG/4 ML VIAL 20 MG IV PUSH (09:24)
[2022-04-28] MEDS: LORazepam (*CRX) 0.5 MG TABLET PO ×2 (09:24→19:52)
[2022-04-28] MEDS: ENOXAPARIN 40 MG/0.4 ML SYRINGE SUB-Q (09:25)
[2022-04-28] MEDS: guaiFENesin 12 HR 600 MG TABCR PO ×2 (09:25→19:59)
[2022-04-28] MEDS: SIMVASTATIN 10 MG TABLET PO (09:25)
[2022-04-28] MEDS: OSELTAMIVIR PHOSPHATE 75 MG CAPSULE PO ×2 (09:25→19:59)
[2022-04-28] MEDS: POTASSIUM CHLORIDE 20 MEQ TABLET.ER PO (09:36)
--- NOTE | 2022-04-28 12:47 | PM.IMPN ---
Progress Note: A&P Assessment and Plan (1) Acute respiratory failure with hypoxia and hypercarbia: Code(s): J96.01 - Acute respiratory failure with hypoxia; J96.02 - Acute respiratory failure with hypercapnia Status: Acute Assessment and Plan: Increased dyspnea, wheezing and 1 liter O2 nasal cannula needs on admission. Secondary to influenza, acute exacerbation of COPD and presumed CHF exacerbation. ABG - pH 7.4, PaCO2 48, PaO2 78, HCO3 30.6 on admission. Prior ABGs show elevated pCO2 and HCO3 with normal pH suggesting hypercapnia is chronic. Continue supplemental O2 to keep sats>90%. Continue management for influenza and COPDAE. Stop Lasix. (2) Influenza A: Code(s): J10.1 - Influenza due to other identified influenza virus with other respiratory manifestations Status: Acute Assessment and Plan: Patient with low-grade temp, influenza A PCR positive on admission and she has known exposure. Continue Tamiflu 75 mg PO BID x 5 days (CrCl 75). Droplet precautions. Recommended influenza vaccination and pneumococcal vaccinations (3) COPD (chronic obstructive pulmonary disease): Qualifiers: COPD type: emphysema Emphysema type: unspecified Qualified Code(s): J43.9 - Emphysema, unspecified Code(s): J44.9 - Chronic obstructive pulmonary disease, unspecified Status: Acute Assessment and Plan: Acute exacerbation of chronic disease exacerbated by influenza A. CXR with severe emphysema. She reports nonproductive cough, no increase in sputum or change in color. Solu-medrol 40 mg IV Q6 hours, ipratropium/levalbuterol nebs Q6 hours, mucinex PO BID, continue management for influenza. She is a former smoker. No prior admissions for COPDAE since November 2020. Wean steroids. (4) Diastolic heart failure: Qualifiers: Heart failure chronicity: acute on chronic Qualified Code(s): I50.33 - Acute on chronic diastolic (congestive) heart failure Code(s): I50.30 - Unspecified diastolic (congestive) heart failure Status: Chronic Assessment and Plan: Presumed acute exacerbation of chronic diastolic CHF. CXR shows emphysema and no pedal edema. BNP elevated 1570. She reports chronic orthopnea and progressively worsening dyspnea. Sodium did improve with IV lasix suggesting hypervolemic hyponatremia. Lisinopril on hold. I/O inaccurate and daily weights up and down. Echo shows hyperdynamic LV systolic function EF 70% and grade 2 diastolic dysfunction. Stop Lasix (5) Hyponatremia: Code(s): E87.1 - Hypo-osmolality and hyponatremia Status: Acute Assessment and Plan: Sodium 128 on admission. She reports anorexia and some loose stool. Urine Na 14 to suggest dehydration. BP soft at times. Repeat sodium 131 after diuretic. Follow (6) Transaminitis: Code(s): R74.01 - Elevation of levels of liver transaminase levels Status: Acute Assessment and Plan: Mildly elevated AST/ALT without prior history. No abd pain, emesis, karine stool or jaundice. Likely secondary to acute viral disease and tissue hypoxia.Hepatitis panel negative. Levels about the same. Follow (7) Anxiety: Code(s): F41.9 - Anxiety disorder, unspecified Status: Chronic Assessment and Plan: Chronic. Holding celexa given hyponatremia. PRN lorazepam PO. (8) Essential hypertension: Code(s): I10 - Essential (primary) hypertension Status: Chronic Assessment and Plan: Chronic. BP soft at times. Hold lisinopril. Stop Lasix. Monitor vitals. Plan CODE STATUS: No intubation. CPR and NIPPV okay Disposition: home with spouse when medically stable. Subjective Date/time seen: 04/28/22 12:47 Interval history: 76yo female with chronic respiratory failure (2L at night), COPD and HTN here for shortness of breath. Assuming care. Chart reviewed. Patient did receive some Ativan earlier today for anxiety. She does wear 2 L O
[2022-04-28] MEDS: ACETAMINOPHEN 325 MG TABLET 650 MG PO (14:43)
[2022-04-28] MEDS: ALBUTEROL SULFATE NEB 2.5 MG/3 ML INH INHALATION (20:07)
[2022-04-29] VITALS (10 sets, daily range): BP systolic 100–113; BP diastolic 53–96; PULSE 87–114; RESP 16–24; TEMP 35.5–36.2; O2SAT 95–100
[2022-04-29] MEDS: IPRATROPIUM BR 0.02% INH SOLN 0.5 MG/2.5 ML VIAL INHALATION ×3 (02:37→21:15)
[2022-04-29] MEDS: methylPREDNISolone SOD SUCC 40 MG VIAL IV PUSH (05:45)
[2022-04-29 06:10] LABS: Albumin Level 4.1 g/dL (3.5-5.1); Carbon Dioxide 34 mmol/L (22-30); Estimated CRCL calculation 62 ml/min; Estimated Glomerular Filt Rate > 60
[2022-04-29 06:28] LABS: Alanine Aminotransferase 34 U/L (6-35); Alkaline Phosphatase 59 U/L (38-126); Aspartate Amino Transferase 45 U/L (14-36); Bilirubin,Total 0.3 mg/dL (0.2-1.3); Blood Urea Nitrogen 16 mg/dL (7-17); Calcium 8.9 mg/dL (8.4-10.2); Glucose 118 mg/dL (65-110)
[2022-04-29 06:29] LABS: Anion Gap 7 mmol/L (8-16); Chloride 89 mmol/L (98-107); Potassium 4.9 mmol/L (3.4-5.0); Sodium 130 mmol/L (137-145)
[2022-04-29 06:47] LABS: Thyroid Stimulating Hormone Reflex 0.243 uIU/mL (0.465-4.68)
[2022-04-29 07:14] LABS: Folic Acid 13.7 ng/mL (2.76->20); Vitamin B12 > 1000.0 pg/mL (239-931)
[2022-04-29 07:17] LABS: Free T4 Free Thyroxine Reflex 1.33 ng/dL (0.78-2.19)
[2022-04-29 08:44] LABS: Total Triiodothyronine (T3) 0.96 NG/ML (0.97-1.69)
[2022-04-29] MEDS: SIMVASTATIN 10 MG TABLET PO (08:45)
[2022-04-29] MEDS: LORazepam (*CRX) 0.5 MG TABLET PO (08:46)
[2022-04-29] MEDS: OSELTAMIVIR PHOSPHATE 75 MG CAPSULE PO ×2 (08:46→20:19)
[2022-04-29] MEDS: guaiFENesin 12 HR 600 MG TABCR PO ×2 (08:46→20:19)
[2022-04-29] MEDS: ACETAMINOPHEN 325 MG TABLET 650 MG PO (08:46)
[2022-04-29] MEDS: ENOXAPARIN 40 MG/0.4 ML SYRINGE SUB-Q (08:46)
[2022-04-29] MEDS: CITALOPRAM HYDROBROMIDE 20 MG TABLET 40 MG PO (08:46)
[2022-04-29 09:07] LABS: Cortisol Random 3.02 ug/dL
--- NOTE | 2022-04-29 11:26 | PC.NURSE ---
Spoke with daughter who has concerns about patient returning home due to patients decreased in mobility and ability to care for herself. Will pass along in report for care coordination to follow up with possibilities.
--- NOTE | 2022-04-29 11:35 | PCRCNOTE ---
Window of time for administration has passed. See next scheduled administration.
--- NOTE | 2022-04-29 11:57 | PC.NURSE ---
Spoke with to bring in pt medication
--- NOTE | 2022-04-29 12:42 | PM.IMPN ---
Progress Note: A&P Assessment and Plan (1) Acute respiratory failure with hypoxia and hypercarbia: Code(s): J96.01 - Acute respiratory failure with hypoxia; J96.02 - Acute respiratory failure with hypercapnia Status: Acute Assessment and Plan: Increased dyspnea with wheezing and 1 liter O2 nasal cannula needed on admission. Secondary to influenza, acute exacerbation of COPD and presumed CHF exacerbation. ABG 7.4/48/78 on 1L. Hx of chronic hypercapnia. Continue supplemental O2 to keep sats>90%. Probably can stop O2 but her anxiety is preventing this. Continue management for influenza and COPD. (2) Influenza A: Code(s): J10.1 - Influenza due to other identified influenza virus with other respiratory manifestations Status: Acute Assessment and Plan: Patient with low-grade temp. Influenza A PCR positive on admission and she has known exposure. Continue Tamiflu 75 mg PO BID x 5 days. Droplet precautions. Recommended influenza vaccination and pneumococcal vaccination when able. (3) COPD (chronic obstructive pulmonary disease): Qualifiers: COPD type: emphysema Emphysema type: unspecified Qualified Code(s): J43.9 - Emphysema, unspecified Code(s): J44.9 - Chronic obstructive pulmonary disease, unspecified Status: Acute Assessment and Plan: Acute exacerbation of chronic disease exacerbated by influenza A. CXR showing severe emphysema. She reports nonproductive cough. No increase in sputum or change in color so abx not indicated at this time. Continue Solu-medrol, nebs and mucinex. She is a former smoker. No prior admissions for COPDAE since November 2020. Steroids may be contributing to her anxiety. Wean steroids. Patient can't take Trelegy so this was stopped - patient to bring in her home inhaler. (4) Chronic respiratory failure: Code(s): J96.10 - Chronic respiratory failure, unspecified whether with hypoxia or hypercapnia Status: Chronic Assessment and Plan: She does wear 2 L O2 at night but has been a using oxygen during the day over the past 5-6 days prior to admission because of shortness of breath.??Continue to wean O2 as tolerated (5) Diastolic heart failure: Qualifiers: Heart failure chronicity: acute on chronic Qualified Code(s): I50.33 - Acute on chronic diastolic (congestive) heart failure Code(s): I50.30 - Unspecified diastolic (congestive) heart failure Status: Chronic Assessment and Plan: Presumed acute exacerbation of chronic diastolic CHF. CXR shows emphysema and no pedal edema. BNP elevated 1570. She reports chronic orthopnea and progressively worsening dyspnea. Sodium did improve with IV lasix suggesting hypervolemic hyponatremia. Lisinopril on hold. I/O inaccurate and daily weights up and down. Echo shows hyperdynamic LV systolic function EF 70% and grade 2 diastolic dysfunction. Lasix held and following clinically. (6) Hyponatremia: Code(s): E87.1 - Hypo-osmolality and hyponatremia Status: Acute Assessment and Plan: Sodium 128 on admission. She reports anorexia and some loose stool. Urine Na 14 to suggest dehydration. BP soft at times. Repeat sodium 130. Cortisol low but she is on steroids. TSH also low but not uncommon for her and FT4 normal. Follow. (7) Transaminitis: Code(s): R74.01 - Elevation of levels of liver transaminase levels Status: Acute Assessment and Plan: Mildly elevated AST/ALT without prior history. No abd pain, emesis, karine stool or jaundice. Hepatitis panel negative. Likely secondary to acute viral disease and tissue hypoxia. Levels improved. Follow (8) Anxiety: Code(s): F41.9 - Anxiety disorder, unspecified Status: Chronic Assessment and Plan: Chronic. Celexa held given hyponatremia but resumed given her anxiety symptoms. PRN lorazepam available. If sodium remains low, may need to change celexa to another agent. Will
--- NOTE | 2022-04-29 14:07 | PHAR ---
HOME MED: BREZTRI AEROSPHERE (BUDESONIDE, GLYCOPYRROLATE, AND FORMOTEROL FUMARATE) 160 MCG/9MCG/4.8 MCG PER INHALATION. ONE INHALER STILL SEALED IN PACKAGING. DRUG VERIFIED BY PHARMACY.
[2022-04-29] MEDS: busPIRone HCL 5 MG TABLET PO ×2 (15:58→20:19)
[2022-04-30] VITALS (12 sets, daily range): BP systolic 109–129; BP diastolic 55–76; PULSE 87–108; RESP 14–21; TEMP 36.1–36.8; O2SAT 96–98
[2022-04-30] MEDS: IPRATROPIUM BR 0.02% INH SOLN 0.5 MG/2.5 ML VIAL INHALATION ×4 (03:49→20:38)
[2022-04-30 06:11] LABS: Anion Gap 4 mmol/L (8-16); Blood Urea Nitrogen 15 mg/dL (7-17); Calcium 8.6 mg/dL (8.4-10.2); Carbon Dioxide 36 mmol/L (22-30); Chloride 89 mmol/L (98-107); Estimated CRCL calculation 61 ml/min; Estimated Glomerular Filt Rate > 60; Glucose 92 mg/dL (65-110); Potassium 3.9 mmol/L (3.4-5.0); Sodium 129 mmol/L (137-145)
[2022-04-30] MEDS: LORazepam (*CRX) 0.5 MG TABLET PO ×3 (06:51→21:02)
[2022-04-30] MEDS: OSELTAMIVIR PHOSPHATE 75 MG CAPSULE PO ×2 (09:20→21:02)
[2022-04-30] MEDS: predniSONE 20 MG TABLET 40 MG PO (09:20)
[2022-04-30] MEDS: ENOXAPARIN 40 MG/0.4 ML SYRINGE SUB-Q (09:20)
[2022-04-30] MEDS: busPIRone HCL 5 MG TABLET PO ×2 (09:21→21:02)
[2022-04-30] MEDS: SIMVASTATIN 10 MG TABLET PO (09:21)
[2022-04-30] MEDS: guaiFENesin 12 HR 600 MG TABCR PO ×2 (09:21→21:02)
--- NOTE | 2022-04-30 11:10 | PM.IMPN ---
Progress Note: A&P Assessment and Plan (1) Acute respiratory failure with hypoxia and hypercarbia: Code(s): J96.01 - Acute respiratory failure with hypoxia; J96.02 - Acute respiratory failure with hypercapnia Status: Acute Assessment and Plan: Increased dyspnea with wheezing and required 1 liter O2 nasal cannula needed on admission. Secondary to influenza, acute exacerbation of COPD and presumed CHF exacerbation. ABG 7.4/48/78 on 1L. Hx of chronic hypercapnia. Continue supplemental O2 to keep sats>90%. Probably can stop O2 but her anxiety is preventing this. Will continue nebs and Mucinex. Add Pulmozyme. Continue management for influenza and COPD. CPT, flutter valve (2) Influenza A: Code(s): J10.1 - Influenza due to other identified influenza virus with other respiratory manifestations Status: Acute Assessment and Plan: Patient with low-grade temp. Influenza A PCR positive on admission and she has known exposure. Continue Tamiflu 75 mg PO BID x 5 days. Droplet precautions. Recommended influenza vaccination and pneumococcal vaccination when able. (3) COPD (chronic obstructive pulmonary disease): Qualifiers: COPD type: emphysema Emphysema type: unspecified Qualified Code(s): J43.9 - Emphysema, unspecified Code(s): J44.9 - Chronic obstructive pulmonary disease, unspecified Status: Acute Assessment and Plan: Acute exacerbation of chronic disease exacerbated by influenza A. CXR showing severe emphysema. She reports nonproductive cough. No increase in sputum or change in color so abx not indicated at this time. She is a former smoker. No prior admissions for COPDAE since November 2020. Continue steroids, nebs, inhaler and mucinex. Add flutter valve (4) Chronic respiratory failure: Code(s): J96.10 - Chronic respiratory failure, unspecified whether with hypoxia or hypercapnia Status: Chronic Assessment and Plan: She does wear 2 L O2 at night but has been a using oxygen during the day over the past 5-6 days prior to admission because of shortness of breath.??Continue to wean O2 as tolerated (5) Diastolic heart failure: Qualifiers: Heart failure chronicity: acute on chronic Qualified Code(s): I50.33 - Acute on chronic diastolic (congestive) heart failure Code(s): I50.30 - Unspecified diastolic (congestive) heart failure Status: Chronic Assessment and Plan: Presumed acute exacerbation of chronic diastolic CHF. CXR shows emphysema and no pedal edema. BNP elevated 1570. She reports chronic orthopnea and progressively worsening dyspnea. Sodium did improve with IV lasix suggesting hypervolemic hyponatremia. Lisinopril on hold. I/O inaccurate and daily weights up and down. Echo shows hyperdynamic LV systolic function EF 70% and grade 2 diastolic dysfunction. Lasix held and following clinically. Repeat CXR. (6) Hyponatremia: Code(s): E87.1 - Hypo-osmolality and hyponatremia Status: Acute Assessment and Plan: Sodium 128 on admission. She reports anorexia and some loose stool. Urine Na 14 to suggest dehydration. BP soft at times. Repeat sodium 129. Cortisol low but she is on steroids. TSH also low but not uncommon for her and FT4 normal. Hold Celexa again. Continue Buspar. Follow. (7) Transaminitis: Code(s): R74.01 - Elevation of levels of liver transaminase levels Status: Acute Assessment and Plan: Mildly elevated AST/ALT without prior history. No abd pain, emesis, karine stool or jaundice. Hepatitis panel negative. Likely secondary to acute viral disease and tissue hypoxia. Levels improved. Follow (8) Anxiety: Code(s): F41.9 - Anxiety disorder, unspecified Status: Chronic Assessment and Plan: Chronic. Celexa held given hyponatremia but resumed given her anxiety symptoms. PRN lorazepam available. Sodium remains low so will hold celexa again. Continue Buspar. (9) Es
[2022-04-30 11:59] LABS: Sodium 126 mmol/L (137-145)
--- NOTE | 2022-04-30 12:18 | PCNFU ---
Nutrition Follow-Up Complete: unintentional weight loss related to reduced appetite and intake as evidenced reported wt loss and family report during assessment. Goal: PO intake 75% of meals and supplements Pt current nutrition is Regular diet. Ensure compact BID. Nutrition recommendation: Continue current care plan and monitoring. Agree withdiet order Last recorded weight is 49.1 kg. Bowel Motility: +1 BM 04/30/22 Labs Reviewed: Na 126, Creat 0.6 Meds Noted: Prednisone Skin:WNL Additional Notes: Intakes improving to 50-100%. Continue to monitor Monitor intake, wt, labs. Follow up in 5 days.
[2022-04-30 19:01] LABS: Sodium 125 mmol/L (137-145)
[2022-04-30] MEDS: DORNASE ALFA INH SOLN 1 MG/ML 2.5 ML AMP 2.5 MG INHALATION (20:45)
[2022-05-01] VITALS (11 sets, daily range): BP systolic 127–136; BP diastolic 66–79; PULSE 71–112; RESP 16–22; TEMP 35.8–36.3; O2SAT 94–99
[2022-05-01 01:41] LABS: Sodium 125 mmol/L (137-145)
[2022-05-01] MEDS: IPRATROPIUM BR 0.02% INH SOLN 0.5 MG/2.5 ML VIAL INHALATION ×3 (03:15→14:04)
[2022-05-01 06:25] LABS: Basophils Percent Auto 0.3 % (0.2-1.2); Eosinophils Percent Auto 0.2 % (0-4.4); Hematocrit 35.9 % (37.0-47.0); Immature Granulocyte Absolute 0.08 K/mm3 (0.00-0.031); Immature Granulocyte Percent A 1.2 % (0-0.5); Lymphocytes Absolute Auto 1.18 K/mm3 (0.9-3.2); Lymphocytes Percent Auto 17.8 % (18.3-44.2); Mean Corpuscular HGB Conc 33.4 g/dl (32-36); Mean Corpuscular Hemoglobin 33.6 pg (26-34); Mean Corpuscular Volume 100.6 fl (80-100); Mean Platelet Volume 8.9 fl (7.4-10.4); Monocytes Absolute Auto 0.7 K/mm3 (0.1-0.6); Monocytes Percent Auto 10.4 % (2.6-8.5); Neutrophils Absolute Auto 4.7 K/mm3 (1.3-6.7); Neutrophils Percent Auto 70.1 % (45.5-73.1); Platelet Count Result 210 k/mm3 (150-375); Red Blood Count 3.57 M/mm3 (4.2-5.4); Red Cell Distribution Width 12.1 % (11.5-14.5); White Blood Count 6.6 K/mm3 (4.5-10.0)
[2022-05-01] MEDS: LORazepam (*CRX) 0.5 MG TABLET PO ×3 (06:30→19:51)
[2022-05-01 06:40] LABS: Alanine Aminotransferase 32 U/L (6-35); Albumin Level 3.9 g/dL (3.5-5.1); Alkaline Phosphatase 58 U/L (38-126); Anion Gap 3 mmol/L (8-16); Aspartate Amino Transferase 30 U/L (14-36); Bilirubin,Total 0.4 mg/dL (0.2-1.3); Blood Urea Nitrogen 6 mg/dL (7-17); Calcium 8.6 mg/dL (8.4-10.2); Carbon Dioxide 36 mmol/L (22-30); Chloride 88 mmol/L (98-107); Estimated CRCL calculation 75 ml/min; Estimated Glomerular Filt Rate > 60; Glucose 93 mg/dL (65-110); Potassium 3.9 mmol/L (3.4-5.0); Sodium 127 mmol/L (137-145)
[2022-05-01] MEDS: DORNASE ALFA INH SOLN 1 MG/ML 2.5 ML AMP 2.5 MG INHALATION (08:11)
[2022-05-01] MEDS: SODIUM CHLORIDE 500 MG TABLET PO ×2 (08:58→16:15)
[2022-05-01] MEDS: SIMVASTATIN 10 MG TABLET PO (08:59)
[2022-05-01] MEDS: predniSONE 20 MG TABLET 40 MG PO (08:59)
[2022-05-01] MEDS: OSELTAMIVIR PHOSPHATE 75 MG CAPSULE PO ×2 (08:59→19:52)
[2022-05-01] MEDS: guaiFENesin 12 HR 600 MG TABCR PO ×2 (08:59→19:52)
[2022-05-01] MEDS: ENOXAPARIN 40 MG/0.4 ML SYRINGE SUB-Q (08:59)
[2022-05-01] MEDS: busPIRone HCL 5 MG TABLET 10 MG PO ×2 (08:59→19:52)
[2022-05-01 12:39] LABS: Sodium 124 mmol/L (137-145)
[2022-05-01 12:43] LABS: Osmolality, Urine 700 mOsm/kg (50-1200)
--- NOTE | 2022-05-01 15:05 | PM.IMPN ---
Progress Note: A&P Assessment and Plan (1) Acute respiratory failure with hypoxia and hypercarbia: Code(s): J96.01 - Acute respiratory failure with hypoxia; J96.02 - Acute respiratory failure with hypercapnia Status: Acute Assessment and Plan: Increased dyspnea with wheezing and required 1 liter O2 nasal cannula on admission. Secondary to influenza, acute exacerbation of COPD and presumed CHF exacerbation. ABG 7.4/48/78 on 1L. Hx of chronic hypercapnia. Continue supplemental O2 to keep sats>90%. Per RN, can't get her down below 0.5L because her SpO2 drops to high 80's; suspect anxiety playing a part. Will continue nebs, Mucinex and Pulmozyme. Continue management for influenza and COPD. CPT, flutter valve ordered. Pulmonary consult. Control anxiety better. Check CTA given the wedge shaped opacity. Changed to Prednisone since steroids thought to be contributing to her anxiety but will change back to Solu-medrol given that she is still wheezing. (2) Influenza A: Code(s): J10.1 - Influenza due to other identified influenza virus with other respiratory manifestations Status: Acute Assessment and Plan: Patient with low-grade temp. Influenza A PCR positive on admission and she has known exposure. Continue Tamiflu 75 mg PO BID x 5 days. Droplet precautions. Recommended influenza vaccination and pneumococcal vaccination when able. (3) COPD (chronic obstructive pulmonary disease): Qualifiers: COPD type: emphysema Emphysema type: unspecified Qualified Code(s): J43.9 - Emphysema, unspecified Code(s): J44.9 - Chronic obstructive pulmonary disease, unspecified Status: Acute Assessment and Plan: Acute exacerbation of chronic disease exacerbated by influenza A. CXR showing severe emphysema. She reports nonproductive cough. No increase in sputum or change in color so abx not indicated at this time. She is a former smoker. No prior admissions for COPDAE since November 2020. Continue nebs, inhaler and mucinex. Change to IV steroids. (4) Chronic respiratory failure: Code(s): J96.10 - Chronic respiratory failure, unspecified whether with hypoxia or hypercapnia Status: Chronic Assessment and Plan: She does wear 2 L O2 at night but has been a using oxygen during the day over the past 5-6 days prior to admission because of shortness of breath.??Continue to wean O2 as tolerated. May now have O2 requirement during the day. Plan for home o2 evaluation prior to discharge. (5) Diastolic heart failure: Qualifiers: Heart failure chronicity: acute on chronic Qualified Code(s): I50.33 - Acute on chronic diastolic (congestive) heart failure Code(s): I50.30 - Unspecified diastolic (congestive) heart failure Status: Chronic Assessment and Plan: Presumed acute exacerbation of chronic diastolic CHF. CXR shows emphysema and no pedal edema. BNP elevated 1570. She reports chronic orthopnea and progressively worsening dyspnea. Sodium did improve with IV lasix suggesting hypervolemic hyponatremia. Lisinopril on hold. I/O inaccurate and daily weights up and down. Echo shows hyperdynamic LV systolic function EF 70% and grade 2 diastolic dysfunction. Repeat CXR reviewed. Repeat Lasix x1. (6) Hyponatremia: Code(s): E87.1 - Hypo-osmolality and hyponatremia Status: Acute Assessment and Plan: Sodium 128 on admission. She reports anorexia and some loose stool. Urine Na 14. BP soft at times. Repeat sodium 129. Cortisol low but she is on steroids. TSH also low but not uncommon for her and FT4 normal. Celexa held. Continue serial Na levels. NaCl tabs started. Lasix to see if this improves. (7) Transaminitis: Code(s): R74.01 - Elevation of levels of liver transaminase levels Status: Acute Assessment and Plan: Mildly elevated AST/ALT without prior history. No abd pain, emesis, karine stool or jaundice. Hepatitis panel negative.
[2022-05-01] MEDS: FUROSEMIDE INJ 40 MG/4 ML VIAL IV PUSH (16:08)
[2022-05-01] MEDS: ACETAMINOPHEN 325 MG TABLET 650 MG PO (16:14)
[2022-05-01] MEDS: methylPREDNISolone SOD SUCC 125 MG VIAL 60 MG IV PUSH (18:46)
[2022-05-01 18:58] LABS: Sodium 125 mmol/L (137-145)
[2022-05-02] VITALS (10 sets, daily range): BP systolic 148–155; BP diastolic 87–94; PULSE 99–111; RESP 16–22; TEMP 35.9–36.4; O2SAT 100
--- NOTE | 2022-05-02 | ECG_ITS ---
Measurements Intervals [place] Rate: 108 P: 82 OR: 168 QRS: -5 QRSD: 86 T: 55 QT: 344 QTc: 463 Interpretive Statements SINUS TACHYCARDIA BORDERLINE T WAVE ABNORMALITY- INFERIOR LEADS BASELINE ARTIFACT- I, II, III, AVR, AVL, AVF, V2-V3 ABNORMAL ECG COMPARED TO ECG 04/27/2022 09:37:10 NO SIGNIFICANT CHANGES Electronically Signed On 05-02-2022 9:18:19 NEUROPHYSIOLOGIST by Alexis Carlton D.O.
[2022-05-02] MEDS: methylPREDNISolone SOD SUCC 125 MG VIAL 60 MG IV PUSH ×3 (00:10→12:33)
[2022-05-02 00:48] LABS: Sodium 126 mmol/L (137-145)
[2022-05-02] MEDS: IPRATROPIUM BR 0.02% INH SOLN 0.5 MG/2.5 ML VIAL INHALATION ×4 (03:08→21:08)
--- NOTE | 2022-05-02 05:58 | PC.NURSE ---
called Md Odom pt co nausea. No medication of nausea ordered at this time.
--- NOTE | 2022-05-02 06:32 | PC.NURSE ---
tigan 200 mg IM for nausea ordered per MD Odom
[2022-05-02] MEDS: TRIMETHOBENZAMIDE HCL 200 MG/2 ML VIAL IM (06:58)
[2022-05-02 07:31] LABS: Anion Gap 8 mmol/L (8-16); Blood Urea Nitrogen 9 mg/dL (7-17); Calcium 8.9 mg/dL (8.4-10.2); Carbon Dioxide 34 mmol/L (22-30); Chloride 85 mmol/L (98-107); Estimated CRCL calculation 76 ml/min; Estimated Glomerular Filt Rate > 60; Glucose 178 mg/dL (65-110); Potassium 3.5 mmol/L (3.4-5.0); Sodium 127 mmol/L (137-145)
[2022-05-02] MEDS: DORNASE ALFA INH SOLN 1 MG/ML 2.5 ML AMP 2.5 MG INHALATION (09:15)
[2022-05-02] MEDS: OSELTAMIVIR PHOSPHATE 75 MG CAPSULE PO (09:28)
[2022-05-02] MEDS: SODIUM CHLORIDE 500 MG TABLET PO ×2 (09:28→18:08)
[2022-05-02] MEDS: ENOXAPARIN 40 MG/0.4 ML SYRINGE SUB-Q (09:28)
[2022-05-02] MEDS: busPIRone HCL 5 MG TABLET 10 MG PO ×2 (09:28→21:21)
[2022-05-02] MEDS: SIMVASTATIN 10 MG TABLET PO (09:28)
[2022-05-02] MEDS: guaiFENesin 12 HR 600 MG TABCR PO ×2 (09:29→21:21)
[2022-05-02] MEDS: LORazepam (*CRX) 0.5 MG TABLET PO ×2 (09:32→23:20)
[2022-05-02] MEDS: ACETAMINOPHEN 325 MG TABLET 650 MG PO ×2 (09:32→23:20)
--- NOTE | 2022-05-02 09:56 | PM.IMPN ---
Progress Note: A&P Assessment and Plan (1) Acute respiratory failure with hypoxia and hypercarbia: Code(s): J96.01 - Acute respiratory failure with hypoxia; J96.02 - Acute respiratory failure with hypercapnia Status: Acute Assessment and Plan: Increased dyspnea with wheezing and required 1 liter O2 nasal cannula on admission. Secondary to influenza, acute exacerbation of COPD and presumed CHF exacerbation. ABG 7.4/48/78 on 1L. Hx of chronic hypercapnia. Continue supplemental O2 to keep sats>90%. Per RN, can't get her down below 0.5L because her SpO2 drops to high 80's; suspect anxiety playing a part. Continue nebs, Mucinex and Pulmozyme. Continue management for influenza and COPD. Continue flutter valve. Pulmonary consulted. CTA chest ordered. Lasix without much output or benefit. Changed back to Solu-Medrol but fear this is making her anxiety worse. If CTA negative, may back off on treatments to see if this improves. (2) Influenza A: Code(s): J10.1 - Influenza due to other identified influenza virus with other respiratory manifestations Status: Acute Assessment and Plan: Patient with low-grade temp. Influenza A PCR positive on admission and she has known exposure. Continue Tamiflu 75 mg PO BID x 5 days. Droplet precautions. Recommended influenza vaccination and pneumococcal vaccination when able. (3) COPD (chronic obstructive pulmonary disease): Qualifiers: COPD type: emphysema Emphysema type: unspecified Qualified Code(s): J43.9 - Emphysema, unspecified Code(s): J44.9 - Chronic obstructive pulmonary disease, unspecified Status: Acute Assessment and Plan: Acute exacerbation of chronic disease exacerbated by influenza A. CXR showing severe emphysema. She reports nonproductive cough. No increase in sputum or change in color so abx not indicated at this time. She is a former smoker. No prior admissions for COPDAE since November 2020. Continue steroids, nebs, inhaler and mucinex. (4) Anxiety: Code(s): F41.9 - Anxiety disorder, unspecified Status: Chronic Assessment and Plan: Chronic. Celexa held given hyponatremia. PRN lorazepam available and getting this frequently. Continue Buspar. Tamiflu can cause delirium and behavioral disturbance so may be part of the issue. Also on steroids which could be contributing. Tamiflu ends today. As above. (5) Chronic respiratory failure: Code(s): J96.10 - Chronic respiratory failure, unspecified whether with hypoxia or hypercapnia Status: Chronic Assessment and Plan: She does wear 2 L O2 at night but has been a using oxygen during the day over the past 5-6 days prior to admission because of shortness of breath.??Continue to wean O2 as tolerated. May now have O2 requirement during the day. Plan for home o2 evaluation prior to discharge. (6) Diastolic heart failure: Qualifiers: Heart failure chronicity: acute on chronic Qualified Code(s): I50.33 - Acute on chronic diastolic (congestive) heart failure Code(s): I50.30 - Unspecified diastolic (congestive) heart failure Status: Chronic Assessment and Plan: Presumed acute exacerbation of chronic diastolic CHF. CXR shows emphysema and no pedal edema. BNP elevated 1570. She reports chronic orthopnea and progressively worsening dyspnea. Sodium did improve with IV lasix suggesting hypervolemic hyponatremia. Lisinopril on hold. I/O inaccurate and daily weights up and down. Echo shows hyperdynamic LV systolic function EF 70% and grade 2 diastolic dysfunction. Repeat CXR reviewed. Repeat Lasix without improvement. (7) Hyponatremia: Code(s): E87.1 - Hypo-osmolality and hyponatremia Status: Acute Assessment and Plan: Sodium 128 on admission. She reports anorexia and some loose stool. Urine Na 14. BP soft at times. Cortisol low but she is on steroids. TSH also low but not uncommon for her and FT4 normal.
--- NOTE | 2022-05-02 16:12 | PM.CNPUL ---
Assessment and Plan Assessment and plan (1) Influenza A: Code(s): J10.1 - Influenza due to other identified influenza virus with other respiratory manifestations Status: Acute (2) Acute respiratory failure with hypoxia and hypercarbia: Code(s): J96.01 - Acute respiratory failure with hypoxia; J96.02 - Acute respiratory failure with hypercapnia Status: Acute Assessment and Plan: this 76-year-old female with very severe COPD FEV1 in the range of 0.7 L, with chronic hypoxemia currently on home oxygen with previous exacerbation approximately 17 months ago presented with another COPD exacerbation probably precipitated by influenza A infection. Patient's respiratory status has not improved over the last 3-4 days. She continues to have shortness of breath with any activity and some localized wheezing right upper chest anteriorly. A chest CT done today showed no clear-cut evidence of new respiratory infection. There is severe confluent centrilobular emphysema and a right upper lobe chronic infiltrate with evidence of bronchiectasis. compared to last chest CT in 2020, the infiltrate looks larger probably related to lung atelectasis surrounding the infiltrate and related to an adjacent hyperinflated bulla. The differential diagnosis of this infiltrate includes possible atypical mycobacterial infection or other chronic infection. Plan: continue with current regimen of IV steroids, nebulized short-acting bronchodilators as supplemental oxygen, Tamiflu, DVT prophylaxis. I have discontinued Dornase and adjusted the IV Solu-Medrol dose. will send sputum for AFBs to exclude atypical mycobacterial infection prior to DC home. (3) COPD (chronic obstructive pulmonary disease): Qualifiers: COPD type: emphysema Emphysema type: unspecified Qualified Code(s): J43.9 - Emphysema, unspecified Code(s): J44.9 - Chronic obstructive pulmonary disease, unspecified Status: Acute (4) Chronic respiratory failure: Code(s): J96.10 - Chronic respiratory failure, unspecified whether with hypoxia or hypercapnia Status: Chronic (5) Diastolic heart failure: Qualifiers: Heart failure chronicity: acute on chronic Qualified Code(s): I50.33 - Acute on chronic diastolic (congestive) heart failure Code(s): I50.30 - Unspecified diastolic (congestive) heart failure Status: Chronic History of Present Illness History of Present Illness Consult date: 05/02/22 Chief complaint: Influenza/Respiratory Failure/COPD Exacerbation Narrative: This patient with known history of COPD chronic hypoxemic respiratory failure presented with shortness of breath. The patient has had severe COPD with the last pulmonary function testing in 2016 showing FEV1 of 0.75 L or 37% predicted and no response to bronchodilators. The patient has had chronic shortness of breath on exertion. She was in her usual state of health until approximately several days prior to this admission when she started having shortness of breath and productive cough with yellow phlegm. As an outpatient the patient was treated with oral prednisone and doxycycline. Because of progressively increasing shortness of breath she was evaluated in the emergency room and was subsequently admitted to the hospital. She was found to be positive for influenza A. She was negative for COVID-19 infection. The patient has been treated with IV steroids, Tamiflu supplemental oxygen, nebulized short-acting bronchodilators and mucolytic agents. She continues to have shortness of breath and wheezing for which she is on nebulized bronchodilators every 6 hours. She has no fever chills hemoptysis night sweats or lower extremity edema. She has been on supplemental oxygen 2-3 liters/minute at night and with activities. She has 1 episode of COPD exacerbation for which she was hospitalized in November of 2020. Chest CT done during previous hospitalization showed severe conf
[2022-05-02] MEDS: methylPREDNISolone SOD SUCC 40 MG VIAL IV PUSH (23:53)
[2022-05-03] VITALS (11 sets, daily range): BP systolic 114–141; BP diastolic 62–91; PULSE 94–113; RESP 18–24; TEMP 36.3–36.9; O2SAT 98–100
[2022-05-03 07:15] LABS: Basophils Percent Auto 0.1 % (0.2-1.2); Hematocrit 35.4 % (37.0-47.0); Hemoglobin 12.2 g/dL (12.0-15.0); Immature Granulocyte Absolute 0.18 K/mm3 (0.00-0.031); Immature Granulocyte Percent A 1.1 % (0-0.5); Lymphocytes Absolute Auto 0.53 K/mm3 (0.9-3.2); Lymphocytes Percent Auto 3.3 % (18.3-44.2); Mean Corpuscular HGB Conc 34.5 g/dl (32-36); Mean Corpuscular Hemoglobin 33.1 pg (26-34); Mean Corpuscular Volume 95.9 fl (80-100); Mean Platelet Volume 8.6 fl (7.4-10.4); Monocytes Absolute Auto 0.5 K/mm3 (0.1-0.6); Monocytes Percent Auto 3.3 % (2.6-8.5); Neutrophils Absolute Auto 14.6 K/mm3 (1.3-6.7); Neutrophils Percent Auto 92.2 % (45.5-73.1); Platelet Count Result 272 k/mm3 (150-375); Red Blood Count 3.69 M/mm3 (4.2-5.4); Red Cell Distribution Width 12.1 % (11.5-14.5); White Blood Count 15.9 K/mm3 (4.5-10.0)
[2022-05-03 07:40] LABS: Alanine Aminotransferase 30 U/L (6-35); Albumin Level 4.1 g/dL (3.5-5.1); Alkaline Phosphatase 53 U/L (38-126); Anion Gap 5 mmol/L (8-16); Aspartate Amino Transferase 30 U/L (14-36); Bilirubin,Total 0.4 mg/dL (0.2-1.3); Blood Urea Nitrogen 9 mg/dL (7-17); CRP < 0.5 mg/dL (<1.0); Carbon Dioxide 35 mmol/L (22-30); Chloride 86 mmol/L (98-107); Estimated CRCL calculation 77 ml/min; Estimated Glomerular Filt Rate > 60; Glucose 127 mg/dL (65-110); Potassium 3.8 mmol/L (3.4-5.0); Sodium 126 mmol/L (137-145)
[2022-05-03] MEDS: IPRATROPIUM BR 0.02% INH SOLN 0.5 MG/2.5 ML VIAL INHALATION ×3 (08:47→21:00)
[2022-05-03] MEDS: ACETAMINOPHEN 325 MG TABLET 650 MG PO (09:18)
[2022-05-03] MEDS: LORazepam (*CRX) 0.5 MG TABLET PO ×2 (09:18→21:13)
[2022-05-03] MEDS: guaiFENesin 12 HR 600 MG TABCR PO ×2 (09:19→21:13)
[2022-05-03] MEDS: SIMVASTATIN 10 MG TABLET PO (09:19)
[2022-05-03] MEDS: SODIUM CHLORIDE 500 MG TABLET PO ×2 (09:19→16:53)
[2022-05-03] MEDS: ENOXAPARIN 40 MG/0.4 ML SYRINGE SUB-Q (09:19)
[2022-05-03] MEDS: busPIRone HCL 5 MG TABLET 10 MG PO ×2 (09:19→21:13)
--- NOTE | 2022-05-03 10:28 | PM.PNPUL ---
Progress Note: A&P Assessment and Plan (1) COPD (chronic obstructive pulmonary disease): Qualifiers: COPD type: emphysema Emphysema type: unspecified Qualified Code(s): J43.9 - Emphysema, unspecified Code(s): J44.9 - Chronic obstructive pulmonary disease, unspecified Status: Acute Assessment and Plan: 76-year-old female with chronic hypoxemic respiratory failure related to severe COPD/emphysema with evidence of large emphysematous air sacks on chest CT has been treated for COPD exacerbation related to recent influenza infection. Clinical status not significantly improved over the last 24 hours. Some of the patient's shortness of breath is related to anxiety. She continues to have a expiratory wheezing on physical exam. Patient did not tolerate BiPAP support in the past. Plan: Continue with current regimen of oral steroids, nebulized short-acting bronchodilators. Lorazepam p.r.n. to control anxiety . Out of bed to chair. There is evidence of a calcifications within the right upper lobe infiltrate, related to chronic scarring. (2) Acute respiratory failure with hypoxia and hypercarbia: Code(s): J96.01 - Acute respiratory failure with hypoxia; J96.02 - Acute respiratory failure with hypercapnia Status: Acute (3) Chronic respiratory failure: Code(s): J96.10 - Chronic respiratory failure, unspecified whether with hypoxia or hypercapnia Status: Chronic (4) Diastolic heart failure: Qualifiers: Heart failure chronicity: acute on chronic Qualified Code(s): I50.33 - Acute on chronic diastolic (congestive) heart failure Code(s): I50.30 - Unspecified diastolic (congestive) heart failure Status: Chronic Subjective Date/time seen: 05/03/22 10:28 Patient continues to have shortness of breath intermittently. She has no fever chills or any other respiratory symptoms. Mild cough with no sputum production. Spent the day sitting up in bed. Review of Systems Review of Systems: All system review is negative except as noted in HPI and below. Exam Narrative: GENERAL APPEARANCE: Well developed, Elderly female looking chronically ill, in moderate respiratory distress while sitting up in bed. Currently receiving supplemental oxygen via nasal cannula. SKIN: Inspection of the skin reveals no rashes, ulcerations or petechiae. HEENT: Sclerae anicteric and conjunctivae pink and moist. Extraocular movements were intact and pupils were equal, round. Dry oral mucosa NECK: Supple. There was no thyroid enlargement, and no tenderness, or masses were felt. CHEST: Normal AP diameter and normal contour without any kyphoscoliosis. hyperinflated chest LUNGS: Auscultation of the lungs revealed distant breath sounds bilaterally and expiratory wheezing bilaterally CARDIAC: There was a regular rate and rhythm without any murmurs, gallops, rubs. ABDOMEN: Soft and nontender with normal bowel sounds. There was no organomegaly. LYMPH NODES: No lymphadenopathy was appreciated in the neck. NEUROLOGIC: Alert and oriented x 3. Normal affect. Objective Data Vital Signs Vital Signs: Vital Signs - 24 hr 05/02/22 14:01 05/02/22 14:11 05/02/22 14:00 Temperature 36.4 C L Pulse Rate 109 H 110 H 111 H Respiratory Rate 22 H 20 20 Blood Pressure 155/89 H Pulse Oximetry 100 Oxygen Delivery Oxygen Flow Rate 05/02/22 21:09 05/02/22 21:09 05/02/22 21:59 Temperature 36.4 C L Pulse Rate 101 H 101 H 101 H Respiratory Rate 20 20 18 Blood Pressure 148/87 H Pulse Oximetry 100 100 Oxygen Delivery Oxygen Flow Rate 2 05/03/22 05:22 05/03/22 08:47 05/03/22 08:48 Temperature 36.4 C L Pulse Rate 94 103 H 103 H Respiratory Rate 18 22 H Blood Pressure 114/62 Pulse Oximetry 99 99 Oxygen Delivery Nasal Cannula Oxygen Flow Rate 2 05/03/22 08:57 Temperature Pulse Rate 108 H Respiratory Rate 20 Blood Pressure Pulse Oximetry Oxygen Delive
--- NOTE | 2022-05-03 12:59 | PM.IMPN ---
Progress Note: A&P Assessment and Plan (1) Acute respiratory failure with hypoxia and hypercarbia: Code(s): J96.01 - Acute respiratory failure with hypoxia; J96.02 - Acute respiratory failure with hypercapnia Status: Acute Assessment and Plan: Increased dyspnea with wheezing and required 1 liter O2 nasal cannula on admission. Secondary to influenza, acute exacerbation of COPD and presumed CHF exacerbation. ABG 7.4/48/78 on 1L. Hx of chronic hypercapnia. Continue supplemental O2 to keep sats>90%. Per RN, can't get her down below 0.5L because her SpO2 drops to high 80's; suspect anxiety playing a part. Pulmozyme stopped. She completed Tamiflu. Continue flutter valve. Pulmonary following. CTA chest showing no PE but severe emphysema and increasing AAA. WBC elevated but related to steroids. Continue Solu-Medrol with plans to wean slowly. Continue neb treatments. (2) Influenza A: Code(s): J10.1 - Influenza due to other identified influenza virus with other respiratory manifestations Status: Acute Assessment and Plan: Patient with low-grade temp. Influenza A PCR positive on admission and she has known exposure. She completed Tamiflu. Recommended influenza vaccination and pneumococcal vaccination when able. (3) COPD (chronic obstructive pulmonary disease): Qualifiers: COPD type: emphysema Emphysema type: unspecified Qualified Code(s): J43.9 - Emphysema, unspecified Code(s): J44.9 - Chronic obstructive pulmonary disease, unspecified Status: Acute Assessment and Plan: Acute exacerbation of chronic disease exacerbated by influenza A. Chest CTA showing severe emphysema and no infiltrates. No increase in sputum or change in color so abx still not indicated at this time. She is a former smoker. No prior admissions for COPDAE since November 2020. Continue steroids, nebs, inhaler and mucinex. (4) Anxiety: Code(s): F41.9 - Anxiety disorder, unspecified Status: Chronic Assessment and Plan: Chronic. Celexa held given hyponatremia. PRN lorazepam available and getting this frequently. Continue Buspar. Tamiflu can cause delirium and behavioral disturbance so may be part of the issue especially since her symptoms are better today since she completed the course. Also on steroids which could be contributing. As above. (5) Hyponatremia: Code(s): E87.1 - Hypo-osmolality and hyponatremia Status: Acute Assessment and Plan: Sodium 128 on admission. She reports anorexia and some loose stool. Urine Na 14. BP soft at times. Cortisol low but she is on steroids. TSH also low but not uncommon for her and FT4 normal. Celexa held. NaCl tabs started. Na 126 today. Still not eating much. Continue to monitor. Continue supplements. Check bladder US given the exam findings. Repeat urine studies. Check UA (6) Chronic respiratory failure: Code(s): J96.10 - Chronic respiratory failure, unspecified whether with hypoxia or hypercapnia Status: Chronic Assessment and Plan: She does wear 2 L O2 at night but has been a using oxygen during the day over the past 5-6 days prior to admission because of shortness of breath.??Continue to wean O2 as tolerated. May now have O2 requirement during the day. Plan for home O2 evaluation prior to discharge. (7) Diastolic heart failure: Qualifiers: Heart failure chronicity: acute on chronic Qualified Code(s): I50.33 - Acute on chronic diastolic (congestive) heart failure Code(s): I50.30 - Unspecified diastolic (congestive) heart failure Status: Chronic Assessment and Plan: Presumed acute exacerbation of chronic diastolic CHF. CXR shows emphysema and no pedal edema. BNP elevated 1570. She reports chronic orthopnea and progressively worsening dyspnea. Sodium did improve with IV lasix suggesting hypervolemic hyponatremia. Lisinopril on hold. I/O inaccurate and daily weights up and down.
[2022-05-03] MEDS: methylPREDNISolone SOD SUCC 40 MG VIAL IV PUSH ×2 (14:38→21:13)
[2022-05-04 05:23] VITALS: BP 139/89; PULSE 96; RESP 22; TEMP 36.6; O2SAT 92
[2022-05-04 05:30] LABS: Appearance Urine Clear (Clear); Bilirubin Urine Negative (Negative); Blood Urine Negative (Negative); Color Urine Yellow (Yellow); Glucose Urine UA Negative (Negative); Ketones Urine Negative (Negative); Leukocyte Esterase Ur Negative LEU/UL (Negative); Nitrate Urine Negative (Negative); Protein Urine Negative (Negative); Specific Grav Ur 1.015 (1.001-1.035); Urobilinogen Urine 0.2 mg/dL (<2.0); pH Urine 7.5 (5.0-9.0)
[2022-05-04 05:43] LABS: Creatinine Urine 17.4 mg/dL; Urea Random Urine 192 MG/DL
[2022-05-04 05:44] LABS: Add Urine Microscopic? NO
[2022-05-04 06:21] LABS: Sodium Urine Random 22 meq/L
[2022-05-04] MEDS: ACETAMINOPHEN 325 MG TABLET 650 MG PO (06:47)
[2022-05-04 06:48] LABS: Basophils Percent Auto 0.2 % (0.2-1.2); Hemoglobin 12.3 g/dL (12.0-15.0); Immature Granulocyte Absolute 0.18 K/mm3 (0.00-0.031); Immature Granulocyte Percent A 1.3 % (0-0.5); Lymphocytes Percent Auto 3.7 % (18.3-44.2); Mean Corpuscular HGB Conc 33.2 g/dl (32-36); Mean Corpuscular Hemoglobin 32.9 pg (26-34); Mean Corpuscular Volume 98.9 fl (80-100); Mean Platelet Volume 8.8 fl (7.4-10.4); Monocytes Absolute Auto 0.7 K/mm3 (0.1-0.6); Neutrophils Absolute Auto 12.2 K/mm3 (1.3-6.7); Neutrophils Percent Auto 89.8 % (45.5-73.1); Platelet Count Result 305 k/mm3 (150-375); Red Blood Count 3.74 M/mm3 (4.2-5.4); Red Cell Distribution Width 12.5 % (11.5-14.5); White Blood Count 13.5 K/mm3 (4.5-10.0)
[2022-05-04] MEDS: methylPREDNISolone SOD SUCC 40 MG VIAL IV PUSH ×3 (06:49→21:25)
[2022-05-04] MEDS: ONDANSETRON INJ 4 MG/2 ML VIAL IV PUSH (06:50)
[2022-05-04 07:12] LABS: Anion Gap 6 mmol/L (8-16); Blood Urea Nitrogen 10 mg/dL (7-17); Calcium 8.7 mg/dL (8.4-10.2); Carbon Dioxide 37 mmol/L (22-30); Chloride 91 mmol/L (98-107); Estimated CRCL calculation 72 ml/min; Estimated Glomerular Filt Rate > 60; Glucose 119 mg/dL (65-110); Sodium 134 mmol/L (137-145)
[2022-05-04 09:29] VITALS: O2SAT 99
[2022-05-04] MEDS: busPIRone HCL 5 MG TABLET 10 MG PO ×2 (09:29→21:24)
[2022-05-04] MEDS: guaiFENesin 12 HR 600 MG TABCR PO ×2 (09:29→21:24)
[2022-05-04] MEDS: ENOXAPARIN 40 MG/0.4 ML SYRINGE SUB-Q (09:29)
[2022-05-04] MEDS: LORazepam (*CRX) 0.5 MG TABLET PO ×2 (09:29→18:39)
[2022-05-04] MEDS: SODIUM CHLORIDE 500 MG TABLET PO ×2 (09:29→16:49)
[2022-05-04] MEDS: SIMVASTATIN 10 MG TABLET PO (09:29)
--- NOTE | 2022-05-04 09:29 | PM.PNPUL ---
Progress Note: A&P Assessment and Plan (1) COPD (chronic obstructive pulmonary disease): Qualifiers: COPD type: emphysema Emphysema type: unspecified Qualified Code(s): J43.9 - Emphysema, unspecified Code(s): J44.9 - Chronic obstructive pulmonary disease, unspecified Status: Acute Assessment and Plan: 76-year-old female with chronic hypoxemic respiratory failure related to severe COPD/emphysema with evidence of large emphysematous air sacks on chest CT has been treated for COPD exacerbation related to recent influenza infection. Clinical status not significantly improved over the last 24 hours. Some of the patient's shortness of breath is related to anxiety. She continues to have a expiratory wheezing on physical exam. Patient did not tolerate BiPAP support in the past. Chronic right upper lobe infiltrate with calcifications suggesting scar tissue most likely. Plan: Continue with current regimen of oral steroids, nebulized short-acting bronchodilators. Lorazepam p.r.n. to control anxiety . Out of bed to chair. Have added empiric antibiotic treatment with ceftriaxone IV. Patient has had no sputum production. (2) Acute respiratory failure with hypoxia and hypercarbia: Code(s): J96.01 - Acute respiratory failure with hypoxia; J96.02 - Acute respiratory failure with hypercapnia Status: Acute (3) Chronic respiratory failure: Code(s): J96.10 - Chronic respiratory failure, unspecified whether with hypoxia or hypercapnia Status: Chronic (4) Diastolic heart failure: Qualifiers: Heart failure chronicity: acute on chronic Qualified Code(s): I50.33 - Acute on chronic diastolic (congestive) heart failure Code(s): I50.30 - Unspecified diastolic (congestive) heart failure Status: Chronic Subjective Date/time seen: 05/04/22 09:29 patient has no new respiratory symptoms. her shortness of breath is more or less unchanged. She is afebrile. Has had mild cough no sputum production., Review of Systems Review of Systems: All system review is negative except as noted in HPI and below. Exam Narrative: GENERAL APPEARANCE: Well developed, Elderly female looking chronically ill, in moderate respiratory distress while sitting up in bed. Currently receiving supplemental oxygen via nasal cannula. SKIN: Inspection of the skin reveals no rashes, ulcerations or petechiae. HEENT: Sclerae anicteric and conjunctivae pink and moist. Extraocular movements were intact and pupils were equal, round. Dry oral mucosa NECK: Supple. There was no thyroid enlargement, and no tenderness, or masses were felt. CHEST: Normal AP diameter and normal contour without any kyphoscoliosis. hyperinflated chest LUNGS: Auscultation of the lungs revealed distant breath sounds bilaterally and expiratory wheezing bilaterally CARDIAC: There was a regular rate and rhythm without any murmurs, gallops, rubs. ABDOMEN: Soft and nontender with normal bowel sounds. There was no organomegaly. LYMPH NODES: No lymphadenopathy was appreciated in the neck. NEUROLOGIC: Alert and oriented x 3. Normal affect. Objective Data Vital Signs Vital Signs: Vital Signs - 24 hr 05/03/22 13:36 05/03/22 13:41 05/03/22 14:00 Temperature 36.3 C L Pulse Rate 107 H 112 H 113 H Respiratory Rate 22 H 20 20 Blood Pressure 141/91 H Pulse Oximetry 99 Oxygen Delivery Oxygen Flow Rate 05/03/22 21:00 05/03/22 21:12 05/03/22 21:12 Temperature Pulse Rate 104 H 102 H Respiratory Rate 24 H 22 H Blood Pressure Pulse Oximetry 100 Oxygen Delivery Nasal Cannula Oxygen Flow Rate 4 05/03/22 21:30 05/04/22 05:23 Temperature 36.9 C 36.6 C Pulse Rate 102 H 96 Respiratory Rate 20 22 H Blood Pressure 137/83 139/89 Pulse Oximetry 98 92 Oxygen Delivery Oxygen Flow Rate Intake/Output Intake/Output: Intake & Output 05/01/22 05/02/22 05/03/22 05/04/22 23:59 23:59 23:59
--- NOTE | 2022-05-04 10:54 | PCRCNOTE ---
Window of time for administration has passed. See next scheduled administration.
[2022-05-04 12:45] VITALS: PULSE 113; RESP 24; O2SAT 99
[2022-05-04] MEDS: IPRATROPIUM BR 0.02% INH SOLN 0.5 MG/2.5 ML VIAL INHALATION (13:04)
[2022-05-04 13:05] VITALS: PULSE 101; RESP 20
[2022-05-04 14:05] VITALS: BP 116/92; PULSE 115; RESP 20; TEMP 36.4; O2SAT 97
--- NOTE | 2022-05-04 14:50 | PC.NURSE ---
Spoke with patient's daughter regarding discharge plans. Daughter stated she believes patient would benefit from discharging home with home health or even discharging to a SNF to gain strength prior to returning home. Daughter stated she would speak with her mother when she visits [facility] regarding possibly discharging to a SNF.
[2022-05-04 21:42] VITALS: BP 148/84; PULSE 103; RESP 14; TEMP 36.1; O2SAT 14
[2022-05-05] VITALS (11 sets, daily range): BP systolic 132–145; BP diastolic 68–75; PULSE 90–109; RESP 14–22; TEMP 37–37.1; O2SAT 98–100
--- NOTE | 2022-05-05 00:47 | PCRCNOTE ---
Window of time for administration has passed. See next scheduled administration.
[2022-05-05] MEDS: IPRATROPIUM BR 0.02% INH SOLN 0.5 MG/2.5 ML VIAL INHALATION ×4 (02:46→22:05)
[2022-05-05] MEDS: methylPREDNISolone SOD SUCC 40 MG VIAL IV PUSH ×3 (07:09→20:34)
[2022-05-05] MEDS: ACETAMINOPHEN 325 MG TABLET 650 MG PO (07:11)
[2022-05-05] MEDS: LORazepam (*CRX) 0.5 MG TABLET PO ×2 (07:11→13:46)
--- NOTE | 2022-05-05 08:46 | P.DS_ITS ---
DS: Discharge Diagnosis Discharge Diagnosis (1) Acute respiratory failure with hypoxia and hypercarbia: Code(s): J96.01 - Acute respiratory failure with hypoxia; J96.02 - Acute respiratory failure with hypercapnia Status: Acute Assessment and Plan: Increased dyspnea with wheezing and required 1 liter O2 nasal cannula on admission. Secondary to influenza, acute exacerbation of COPD and presumed CHF exacerbation. ABG 7.4/48/78 on 1L. Hx of chronic hypercapnia. Continue supplemental O2 to keep sats>90%. Per RN, can't get her down below 0.5L because her SpO2 drops to high 80's; suspect anxiety playing a part. Pulmozyme stopped. She completed Tamiflu. Continue flutter valve. Pulmonary following. CTA chest showing no PE but severe emphysema and increasing AAA. WBC elevated but related to steroids. Continue Solu-Medrol with plans to wean slowly. Continue neb treatments. Appreciate pulmonology consultation, Rocephin started (2) Influenza A: Code(s): J10.1 - Influenza due to other identified influenza virus with other respiratory manifestations Status: Acute Assessment and Plan: Patient with low-grade temp. Influenza A PCR positive on admission and she has known exposure. She completed Tamiflu. Recommended influenza vaccination and pneumococcal vaccination when able. (3) COPD (chronic obstructive pulmonary disease): Qualifiers: COPD type: emphysema Emphysema type: unspecified Qualified Code(s): J43.9 - Emphysema, unspecified Code(s): J44.9 - Chronic obstructive pulmonary disease, unspecified Status: Acute Assessment and Plan: Acute exacerbation of chronic disease exacerbated by influenza A. Chest CTA showing severe emphysema and no infiltrates. No increase in sputum or change in color so abx still not indicated at this time. She is a former smoker. No prior admissions for COPDAE since November 2020. Continue steroids, nebs, inhaler and mucinex. (4) Anxiety: Code(s): F41.9 - Anxiety disorder, unspecified Status: Chronic Assessment and Plan: Chronic. Celexa held given hyponatremia. PRN lorazepam available and getting this frequently. Continue Buspar. Tamiflu can cause delirium and behavioral disturbance so may be part of the issue especially since her symptoms are better today since she completed the course. Also on steroids which could be contributing. As above. (5) Hyponatremia: Code(s): E87.1 - Hypo-osmolality and hyponatremia Status: Acute Assessment and Plan: Sodium 128 on admission. She reports anorexia and some loose stool. Urine Na 14. BP soft at times. Cortisol low but she is on steroids. TSH also low but not uncommon for her and FT4 normal. Celexa held. NaCl tabs started. Na 126 today. Still not eating much. Continue to monitor. Continue supplements. Check bladder US given the exam findings. Repeat urine studies. Check UA (6) Chronic respiratory failure: Code(s): J96.10 - Chronic respiratory failure, unspecified whether with hypoxia or hypercapnia Status: Chronic Assessment and Plan: She does wear 2 L O2 at night but has been a using oxygen during the day over the past 5-6 days prior to admission because of shortness of breath.??Continue to wean O2 as tolerated. May now have O2 requirement during the day. Plan for home O2 evaluation prior to discharge. (7) Diastolic heart failure: Qualifiers: Heart failure chronicity: acute on chronic Qualified Code(s): I50.33 - Acute on chronic diastolic (congestive) heart failure Code(s): I50.30 - Unspecified diastolic (congest
--- NOTE | 2022-05-05 09:26 | PM.PNPUL ---
Progress Note: A&P Assessment and Plan (1) COPD (chronic obstructive pulmonary disease): Qualifiers: COPD type: emphysema Emphysema type: unspecified Qualified Code(s): J43.9 - Emphysema, unspecified Code(s): J44.9 - Chronic obstructive pulmonary disease, unspecified Status: Acute Assessment and Plan: 76-year-old female with chronic hypoxemic respiratory failure related to severe COPD/emphysema with evidence of large emphysematous air sacks on chest CT has been treated for COPD exacerbation related to recent influenza infection. Clinical status mildly improved over the last 24 hours. Patient has less shortness of breath and there is evidence of less wheezing on physical exam. Plan: Continue with current regimen of IV steroids, nebulized short-acting bronchodilators, IV antibiotic. Lorazepam p.r.n. to control anxiety . Out of bed to chair. (2) Acute respiratory failure with hypoxia and hypercarbia: Code(s): J96.01 - Acute respiratory failure with hypoxia; J96.02 - Acute respiratory failure with hypercapnia Status: Acute (3) Chronic respiratory failure: Code(s): J96.10 - Chronic respiratory failure, unspecified whether with hypoxia or hypercapnia Status: Chronic (4) Diastolic heart failure: Qualifiers: Heart failure chronicity: acute on chronic Qualified Code(s): I50.33 - Acute on chronic diastolic (congestive) heart failure Code(s): I50.30 - Unspecified diastolic (congestive) heart failure Status: Chronic Subjective Date/time seen: 05/05/22 09:26 doing a little better today. Has less shortness of breath. No new respiratory symptoms, afebrile. Review of Systems Review of Systems: 12 point review of systems was assessed and was negative except as noted in the HPI Exam Narrative: GENERAL APPEARANCE: Well developed, Elderly female looking chronically ill, in moderate respiratory distress while sitting up in bed. Currently receiving supplemental oxygen via nasal cannula. SKIN: Inspection of the skin reveals no rashes, ulcerations or petechiae. HEENT: Sclerae anicteric and conjunctivae pink and moist. Extraocular movements were intact and pupils were equal, round. Dry oral mucosa NECK: Supple. There was no thyroid enlargement, and no tenderness, or masses were felt. CHEST: Normal AP diameter and normal contour without any kyphoscoliosis. hyperinflated chest LUNGS: Auscultation of the lungs revealed distant breath sounds bilaterally and expiratory wheezing bilaterally CARDIAC: There was a regular rate and rhythm without any murmurs, gallops, rubs. ABDOMEN: Soft and nontender with normal bowel sounds. There was no organomegaly. LYMPH NODES: No lymphadenopathy was appreciated in the neck. NEUROLOGIC: Alert and oriented x 3. Normal affect. Objective Data Vital Signs Vital Signs: Vital Signs - 24 hr 05/04/22 12:45 05/04/22 12:45 05/04/22 13:05 Temperature Pulse Rate 113 H 101 H Respiratory Rate 24 H 20 Blood Pressure Pulse Oximetry 99 Oxygen Delivery Nasal Cannula Oxygen Flow Rate 3 05/04/22 09:29 05/04/22 14:05 05/04/22 21:42 Temperature 36.4 C L 36.1 C L Pulse Rate 115 H 103 H Respiratory Rate 20 14 Blood Pressure 116/92 H 148/84 H Pulse Oximetry 99 97 14 L Oxygen Delivery Nasal Cannula Oxygen Flow Rate 3 05/05/22 05:51 05/05/22 08:20 05/05/22 08:30 Temperature 37.1 C Pulse Rate 94 102 H 102 H Respiratory Rate 14 20 22 H Blood Pressure 132/68 Pulse Oximetry 100 Oxygen Delivery Oxygen Flow Rate Intake/Output Intake/Output: Intake & Output 05/02/22 05/03/22 05/04/22 05/05/22 23:59 23:59 23:59 23:59 Intake Total 1060 1180 1164 750 Output Total 1856 309 6866 1000 Balance -490 280 36 -250 Meds/Results Medications: Active Medications Generic Name Dose Route Start Last Admin Trade Name Freq PRN Reason Stop Dose Admin Acetaminophen 650 mg 04/27/22 13
[2022-05-05] MEDS: guaiFENesin 12 HR 600 MG TABCR PO ×2 (09:44→20:34)
[2022-05-05] MEDS: SODIUM CHLORIDE 500 MG TABLET PO ×2 (09:44→17:17)
[2022-05-05] MEDS: SIMVASTATIN 10 MG TABLET PO (09:44)
[2022-05-05] MEDS: busPIRone HCL 5 MG TABLET 10 MG PO ×2 (09:44→20:34)
[2022-05-05] MEDS: ENOXAPARIN 40 MG/0.4 ML SYRINGE SUB-Q (09:45)
--- NOTE | 2022-05-05 09:45 | PCNFU ---
Nutrition Follow-Up Complete: unintentional weight loss related to reduced appetite and intake as evidenced reported wt loss and family report during assessment. Goal: PO intake 75% of meals and supplement- Goal being met. Continue same goal Pt current nutrition is Regular diet. Intakes 100% all meals. Ensure Compact BID for additional 220 kcals and 9 g protein each shake, intakes on supplement not charted. Nutrition recommendation: Agree with regular diet. Continue current care plan and monitoring. Last recorded weight is 49.5 kg. Bowel Motility:+BM 05/04/22 Labs Reviewed:Na 134, Creat 0.4 Meds Noted: Rocephin, Lovenox, solumedrol Skin: WNL Additional Notes: Intakes improved to 100%. Agree with current diet order. Monitor intake, wt, labs. Follow up in 5 days.
--- NOTE | 2022-05-05 10:30 | PC.NURSE ---
Informed patient of discharge orders for today. Patient stated Dr. Elena told her earlier today she would be hospitalized for a few more days . Contacted Dr. Elena to clarify orders. Dr. Elena stated she's not ready for discharge yet . Called Dr. Rai to relay this information, left voicemail and asked she return my call.
--- NOTE | 2022-05-05 11:24 | PC.NURSE ---
Spoke with Dr. Rai regarding discharge orders and informed her of conversations with house mover and patient.
[2022-05-05] MEDS: ALBUTEROL SULFATE NEB 2.5 MG/3 ML INH INHALATION (22:05)
[2022-05-06] VITALS (10 sets, daily range): BP systolic 124–142; BP diastolic 74–79; PULSE 93–111; RESP 16–22; TEMP 36–36.8; O2SAT 98–100
[2022-05-06] MEDS: methylPREDNISolone SOD SUCC 40 MG VIAL IV PUSH (06:19)
[2022-05-06] MEDS: LORazepam (*CRX) 0.5 MG TABLET PO ×2 (08:38→20:01)
[2022-05-06] MEDS: busPIRone HCL 5 MG TABLET 10 MG PO ×2 (08:40→20:01)
[2022-05-06] MEDS: ENOXAPARIN 40 MG/0.4 ML SYRINGE SUB-Q (08:40)
[2022-05-06] MEDS: SIMVASTATIN 10 MG TABLET PO (08:41)
[2022-05-06] MEDS: SODIUM CHLORIDE 500 MG TABLET PO ×2 (08:41→15:59)
[2022-05-06] MEDS: guaiFENesin 12 HR 600 MG TABCR PO ×2 (08:41→20:01)
--- NOTE | 2022-05-06 09:08 | PM.PNPUL ---
Progress Note: A&P Assessment and Plan (1) COPD (chronic obstructive pulmonary disease): Qualifiers: COPD type: emphysema Emphysema type: unspecified Qualified Code(s): J43.9 - Emphysema, unspecified Code(s): J44.9 - Chronic obstructive pulmonary disease, unspecified Status: Acute Assessment and Plan: 76-year-old female with chronic hypoxemic respiratory failure related to severe COPD/emphysema with evidence of large emphysematous air sacks on chest CT has been treated for COPD exacerbation related to recent influenza infection. Has been on IV antibiotics and IV steroids. physical exam showed less hyperinflation and improving expiratory wheezing bilaterally. Of note the patient has end-stage COPD with hypercarbic hypoxemic respiratory failure with previous intolerance to home ventilatory support. She has been on maximal treatment for COPD exacerbation with a slow improvement. A lot of complaints are related to anxiety and hyperventilation which aggravate chronic shortness of breath. Patient will be switched back to oral steroids, will continue with antibiotic and nebulized short-acting bronchodilators. Continue with nebulized short-acting bronchodilators out of bed to chair (2) Acute respiratory failure with hypoxia and hypercarbia: Code(s): J96.01 - Acute respiratory failure with hypoxia; J96.02 - Acute respiratory failure with hypercapnia Status: Acute (3) Chronic respiratory failure: Code(s): J96.10 - Chronic respiratory failure, unspecified whether with hypoxia or hypercapnia Status: Chronic (4) Diastolic heart failure: Qualifiers: Heart failure chronicity: acute on chronic Qualified Code(s): I50.33 - Acute on chronic diastolic (congestive) heart failure Code(s): I50.30 - Unspecified diastolic (congestive) heart failure Status: Chronic Subjective Date/time seen: 05/06/22 09:08 Patient did not sleep well last night. Feels tired this morning. Otherwise shortness of breath unchanged. Afebrile. Mild coughing with no sputum production as before. Requested Ativan for anxiety. Review of Systems Review of Systems: All systems reviewed & are unremarkable except as noted in HPI and below Exam Narrative: GENERAL APPEARANCE: Well developed, Elderly female looking chronically ill, in moderate respiratory distress while sitting up in bed. Currently receiving supplemental oxygen via nasal cannula. SKIN: Inspection of the skin reveals no rashes, ulcerations or petechiae. HEENT: Sclerae anicteric and conjunctivae pink and moist. Extraocular movements were intact and pupils were equal, round. Dry oral mucosa NECK: Supple. There was no thyroid enlargement, and no tenderness, or masses were felt. CHEST: Normal AP diameter and normal contour without any kyphoscoliosis. hyperinflated chest LUNGS: Auscultation of the lungs revealed distant breath sounds bilaterally and expiratory wheezing bilaterally CARDIAC: There was a regular rate and rhythm without any murmurs, gallops, rubs. ABDOMEN: Soft and nontender with normal bowel sounds. There was no organomegaly. LYMPH NODES: No lymphadenopathy was appreciated in the neck. NEUROLOGIC: Alert and oriented x 3. Normal affect. Objective Data Vital Signs Vital Signs: Vital Signs - 24 hr 05/05/22 09:44 05/05/22 13:45 05/05/22 13:54 Temperature Pulse Rate 90 103 H Respiratory Rate 20 20 Blood Pressure Pulse Oximetry 100 Oxygen Delivery Nasal Cannula Oxygen Flow Rate 2 Fraction of Inspired Oxygen 05/05/22 13:55 05/05/22 14:00 05/05/22 21:49 Temperature 37.1 C 37.0 C Pulse Rate 109 H 106 H Respiratory Rate 20 22 H Blood Pressure 141/75 H 145/75 H Pulse Oximetry 98 100 100 Oxygen Delivery Nasal Cannula Oxygen Flow Rate 2 Fraction of Inspired Oxygen 05/05/22 22:08 05/05/22 20:00 05/06/22 05:21 Temperature 36.8 C Pulse Rate 99 99 93 Respiratory Rate
[2022-05-06] MEDS: IPRATROPIUM BR 0.02% INH SOLN 0.5 MG/2.5 ML VIAL INHALATION ×4 (09:18→21:46)
--- NOTE | 2022-05-06 09:40 | PCOTNOTE ---
Attempted to see patient this am, however patient refused. Upon entering patient stated, I'm not doing well at the moment. I started feeling hot and I'm having a hard time breathing. RN present. Pt declined ADLs stating, My usually helps me with that in the evenings. Pt declining activity out of bed at this time.
--- NOTE | 2022-05-06 10:02 | PCRCNOTE ---
ATTEMPTED HOME O2 EVAL. PT DECLINED WALK, STATES SHE IS TOO SHORT OF BREATH. NO DISCHARGE PLANS.
--- NOTE | 2022-05-06 10:17 | PM.IMPN ---
Progress Note: A&P Assessment and Plan (1) Acute respiratory failure with hypoxia and hypercarbia: Code(s): J96.01 - Acute respiratory failure with hypoxia; J96.02 - Acute respiratory failure with hypercapnia Status: Acute Assessment and Plan: Increased dyspnea with wheezing and required 1 liter O2 nasal cannula on admission. Secondary to influenza, acute exacerbation of COPD and presumed CHF exacerbation. ABG 7.4/48/78 on 1L. Hx of chronic hypercapnia. Continue supplemental O2 to keep sats>90%. Per RN, can't get her down below 0.5L because her SpO2 drops to high 80's; suspect anxiety playing a part. Pulmozyme stopped. She completed Tamiflu. Continue flutter valve. Pulmonary following. CTA chest showing no PE but severe emphysema and increasing AAA. WBC elevated but related to steroids. Appreciate pulmonology consultation, cont rocephin, wean steroids to oral today (2) Influenza A: Code(s): J10.1 - Influenza due to other identified influenza virus with other respiratory manifestations Status: Acute Assessment and Plan: Patient with low-grade temp. Influenza A PCR positive on admission and she has known exposure. She completed Tamiflu. Recommended influenza vaccination and pneumococcal vaccination when able. (3) COPD (chronic obstructive pulmonary disease): Qualifiers: COPD type: emphysema Emphysema type: unspecified Qualified Code(s): J43.9 - Emphysema, unspecified Code(s): J44.9 - Chronic obstructive pulmonary disease, unspecified Status: Acute Assessment and Plan: Acute exacerbation of chronic disease exacerbated by influenza A. Chest CTA showing severe emphysema and no infiltrates. No increase in sputum or change in color so abx still not indicated at this time. She is a former smoker. No prior admissions for COPD since November 2020. Continue steroids, nebs, inhaler and mucinex. (4) Anxiety: Code(s): F41.9 - Anxiety disorder, unspecified Status: Chronic Assessment and Plan: Chronic. Celexa held given hyponatremia. PRN lorazepam available and getting this frequently. Continue Buspar. Tamiflu can cause delirium and behavioral disturbance so may be part of the issue especially since her symptoms are better today since she completed the course. Also on steroids which could be contributing. As above. (5) Hyponatremia: Code(s): E87.1 - Hypo-osmolality and hyponatremia Status: Acute Assessment and Plan: Sodium 128 on admission. She reports anorexia and some loose stool. Urine Na 14. BP soft at times. Cortisol low but she is on steroids. TSH also low but not uncommon for her and FT4 normal. Celexa held. NaCl tabs started. Na 126 today. Still not eating much. Continue to monitor. Continue supplements. Check bladder US given the exam findings. Repeat urine studies. Check UA (6) Chronic respiratory failure: Code(s): J96.10 - Chronic respiratory failure, unspecified whether with hypoxia or hypercapnia Status: Chronic Assessment and Plan: She does wear 2 L O2 at night but has been a using oxygen during the day over the past 5-6 days prior to admission because of shortness of breath.??Continue to wean O2 as tolerated. May now have O2 requirement during the day. Plan for home O2 evaluation prior to discharge. (7) Diastolic heart failure: Qualifiers: Heart failure chronicity: acute on chronic Qualified Code(s): I50.33 - Acute on chronic diastolic (congestive) heart failure Code(s): I50.30 - Unspecified diastolic (congestive) heart failure Status: Chronic Assessment and Plan: Presumed acute exacerbation of chronic diastolic CHF. CXR shows emphysema and no pedal edema. BNP elevated 1570. She reports chronic orthopnea and progressively worsening dyspnea. Sodium did improve with IV lasix suggesting hypervolemic hyponatremia. Lisinopril on hold. I/O inaccurate and daily weights up and
[2022-05-06] MEDS: ACETAMINOPHEN 325 MG TABLET 650 MG PO (15:53)
[2022-05-07] VITALS (16 sets, daily range): BP systolic 126–132; BP diastolic 60–77; PULSE 77–118; RESP 14–22; TEMP 36.1–36.9; O2SAT 87–100
[2022-05-07] MEDS: IPRATROPIUM BR 0.02% INH SOLN 0.5 MG/2.5 ML VIAL INHALATION ×3 (02:58→20:56)
--- NOTE | 2022-05-07 10:20 | HOMEO2EVAL ---
Evaluation was performed at [facility] Home Oxygen Evaluation RC: Home Oxygen (O2) Evaluation Start: 05/04/22 16:37 Freq: ONCE Status: Active Protocol: RPE Activity Type Activity Date Activity User E-sign Co-sign Detail Recorded Client Recorded Date Recorded By Document 05/07/22 09:30 DJO [email or web address] 05/07/22 10:20 DJO Document 05/07/22 09:35 [email or web address] [email or web address] 05/07/22 10:20 DJO Document 05/07/22 09:40 [email or web address] [email or web address] 05/07/22 10:20 DJO Document 05/07/22 09:45 [email or web address] [email or web address] 05/07/22 10:20 DJO Document 05/07/22 09:55 [email or web address] [email or web address] 05/07/22 10:20 DJO 05/07/22 05/07/22 05/07/22 09:30 09:35 09:40 Home O2 Evaluation [Oxygen] -Test Phase Resting Resting Resting -Oxygen Delivery Room Air Nasal Cannula Nasal Cannula -Oxygen Flow Rate (L/min) 1 2 [Pulse Oximetry] -Pulse Oximetry (90-100 %) 87 L 88 L 91 [Pulse Rate] -Pulse Rate (60-100 beats/min) 100 102 H 103 H [Evaluation] -Activity Tolerance 05/07/22 05/07/22 09:45 09:55 Home O2 Evaluation [Oxygen] -Test Phase Exercise Resting -Oxygen Delivery Nasal Cannula Nasal Cannula -Oxygen Flow Rate (L/min) 2 2 [Pulse Oximetry] -Pulse Oximetry (90-100 %) 90 91 [Pulse Rate] -Pulse Rate (60-100 beats/min) 118 H 102 H [Evaluation] -Activity Tolerance Fair
[2022-05-07] MEDS: ENOXAPARIN 40 MG/0.4 ML SYRINGE SUB-Q (10:30)
[2022-05-07] MEDS: busPIRone HCL 5 MG TABLET 10 MG PO ×2 (10:31→21:26)
[2022-05-07] MEDS: guaiFENesin 12 HR 600 MG TABCR PO ×2 (10:32→21:27)
[2022-05-07] MEDS: SIMVASTATIN 10 MG TABLET PO (10:32)
[2022-05-07] MEDS: SODIUM CHLORIDE 500 MG TABLET PO ×2 (10:32→17:06)
[2022-05-07] MEDS: predniSONE 20 MG, predniSONE 10 MG 30 MG PO (10:32)
[2022-05-07] MEDS: LORazepam (*CRX) 0.5 MG TABLET PO ×2 (10:36→21:27)
--- NOTE | 2022-05-07 12:08 | PM.PNPUL ---
Progress Note: A&P Assessment and Plan (1) COPD (chronic obstructive pulmonary disease): Qualifiers: COPD type: emphysema Emphysema type: unspecified Qualified Code(s): J43.9 - Emphysema, unspecified Code(s): J44.9 - Chronic obstructive pulmonary disease, unspecified Status: Acute Assessment and Plan: 76-year-old female with chronic hypoxemic respiratory failure related to severe COPD/emphysema with evidence of large emphysematous air sacks on chest CT has been treated for COPD exacerbation related to recent influenza infection. Has been on IV antibiotics and IV steroids. physical exam showed less hyperinflation and improving expiratory wheezing bilaterally. Of note the patient has end-stage COPD with hypercarbic hypoxemic respiratory failure with previous intolerance to home ventilatory support. on last blood gases she had minimally elevated pCO2 which is not too high to qualify for home ventilatory support. Her respiratory status has improved over the last 2 days. Plan: Continue with oral steroids, nebulized short-acting bronchodilators antibiotics, anti anxiety medications. Anticipate discharging patient home over the weekend. (2) Acute respiratory failure with hypoxia and hypercarbia: Code(s): J96.01 - Acute respiratory failure with hypoxia; J96.02 - Acute respiratory failure with hypercapnia Status: Acute (3) Chronic respiratory failure: Code(s): J96.10 - Chronic respiratory failure, unspecified whether with hypoxia or hypercapnia Status: Chronic (4) Diastolic heart failure: Qualifiers: Heart failure chronicity: acute on chronic Qualified Code(s): I50.33 - Acute on chronic diastolic (congestive) heart failure Code(s): I50.30 - Unspecified diastolic (congestive) heart failure Status: Chronic Subjective Date/time seen: 05/07/22 12:08 patient doing better. She has no new respiratory symptoms. Her main concern is about anxiety control. Shortness of breath less but not quite near baseline yet. Review of Systems Review of Systems: 12 point review of systems was assessed and was negative except as noted in the HPI Exam Narrative: GENERAL APPEARANCE: Well developed, Elderly female looking chronically ill, in moderate respiratory distress while sitting up in bed. Currently receiving supplemental oxygen via nasal cannula. SKIN: Inspection of the skin reveals no rashes, ulcerations or petechiae. HEENT: Sclerae anicteric and conjunctivae pink and moist. Extraocular movements were intact and pupils were equal, round. Dry oral mucosa NECK: Supple. There was no thyroid enlargement, and no tenderness, or masses were felt. CHEST: Normal AP diameter and normal contour without any kyphoscoliosis. hyperinflated chest LUNGS: Auscultation of the lungs revealed distant breath sounds bilaterally and expiratory wheezing bilaterally CARDIAC: There was a regular rate and rhythm without any murmurs, gallops, rubs. ABDOMEN: Soft and nontender with normal bowel sounds. There was no organomegaly. LYMPH NODES: No lymphadenopathy was appreciated in the neck. NEUROLOGIC: Alert and oriented x 3. Normal affect. Objective Data Vital Signs Vital Signs: Vital Signs - 24 hr 05/06/22 13:57 05/06/22 14:05 05/06/22 14:19 Temperature 36.1 C L Pulse Rate 107 H 106 H 110 H Respiratory Rate 20 20 18 Blood Pressure 139/79 Pulse Oximetry 100 Oxygen Delivery Oxygen Flow Rate Fraction of Inspired Oxygen 05/06/22 20:00 05/06/22 21:47 05/06/22 22:00 Temperature 36.0 C L Pulse Rate 110 H 99 95 Respiratory Rate 18 18 16 Blood Pressure 124/74 Pulse Oximetry 100 100 Oxygen Delivery Nasal Cannula Oxygen Flow Rate 2 Fraction of Inspired Oxygen 97 05/07/22 03:01 05/07/22 03:02 05/06/22 22:00 Temperature Pulse Rate 90 95 Respiratory Rate 18 18 Blood Pressure Pulse Oximetry 98 Oxygen Delivery Nasal Cannula Oxygen
--- NOTE | 2022-05-07 14:30 | P.PNIM_ITS ---
Progress Note: A&P Assessment and Plan (1) Acute respiratory failure with hypoxia and hypercarbia: Code(s): J96.01 - Acute respiratory failure with hypoxia; J96.02 - Acute respiratory failure with hypercapnia Status: Acute Assessment and Plan: Increased dyspnea with wheezing and required 1 liter O2 nasal cannula on admission. Secondary to influenza, acute exacerbation of COPD and presumed CHF exacerbation. ABG 7.4/48/78 on 1L. Hx of chronic hypercapnia. Continue supplemental O2 to keep sats>90%. Per RN, can't get her down below 0.5L because her SpO2 drops to high 80's; suspect anxiety playing a part. Pulmozyme stopped. She completed Tamiflu. Continue flutter valve. Pulmonary following. CTA chest showing no PE but severe emphysema and increasing AAA. WBC elevated but related to steroids. Appreciate pulmonology consultation, cont rocephin, wean steroids to oral today (2) Influenza A: Code(s): J10.1 - Influenza due to other identified influenza virus with other respiratory manifestations Status: Acute Assessment and Plan: Patient with low-grade temp. Influenza A PCR positive on admission and she has known exposure. She completed Tamiflu. Recommended influenza vaccination and pneumococcal vaccination when able. (3) COPD (chronic obstructive pulmonary disease): Qualifiers: COPD type: emphysema Emphysema type: unspecified Qualified Code(s): J43.9 - Emphysema, unspecified Code(s): J44.9 - Chronic obstructive pulmonary disease, unspecified Status: Acute Assessment and Plan: Acute exacerbation of chronic disease exacerbated by influenza A. Chest CTA showing severe emphysema and no infiltrates. No increase in sputum or change in color so abx still not indicated at this time. She is a former smoker. No prior admissions for COPD since November 2020. Continue steroids, nebs, inhaler and mucinex. (4) Anxiety: Code(s): F41.9 - Anxiety disorder, unspecified Status: Chronic Assessment and Plan: Chronic. Celexa held given hyponatremia. PRN lorazepam available and getting this frequently. Continue Buspar. Tamiflu can cause delirium and behavioral disturbance so may be part of the issue especially since her symptoms are better today since she completed the course. Also on steroids which could be contributing. As above. (5) Hyponatremia: Code(s): E87.1 - Hypo-osmolality and hyponatremia Status: Acute Assessment and Plan: Sodium 128 on admission. She reports anorexia and some loose stool. Urine Na 14. BP soft at times. Cortisol low but she is on steroids. TSH also low but not uncommon for her and FT4 normal. Celexa held. NaCl tabs started. Na 126 today. Still not eating much. Continue to monitor. Continue supplements. Check bladder US given the exam findings. Repeat urine studies. Check UA (6) Chronic respiratory failure: Code(s): J96.10 - Chronic respiratory failure, unspecified whether with hypoxia or hypercapnia Status: Chronic Assessment and Plan: She does wear 2 L O2 at night but has been a using oxygen during the day over the past 5-6 days prior to admission because of shortness of breath.??Continue to wean O2 as tolerated. May now have O2 requirement during the day. Plan for home O2 evaluation prior to discharge. (7) Diastolic heart failure: Qualifiers: Heart failure chronicity: acute on chronic Qualified Code(s): I50.33 - Acute on chronic diastolic (congestive) heart failure Code(s): I50.30 - Unspecified diastolic (congestive) heart failure Status: Chronic A
[2022-05-08] VITALS (11 sets, daily range): BP systolic 114–138; BP diastolic 70–86; PULSE 82–115; RESP 14–20; TEMP 36.2–36.9; O2SAT 99–100
[2022-05-08] MEDS: IPRATROPIUM BR 0.02% INH SOLN 0.5 MG/2.5 ML VIAL INHALATION ×4 (03:22→20:25)
--- NOTE | 2022-05-08 07:21 | PCOTNOTE ---
Pt plans to discharge home with home health. Plan to discharge from skilled OT at this time, as patient is set up/Independent with ADLs and will have at home to assist as needed. Pt reports helps her at home prior to hospitalization.
[2022-05-08] MEDS: ENOXAPARIN 40 MG/0.4 ML SYRINGE SUB-Q (09:04)
[2022-05-08] MEDS: SIMVASTATIN 10 MG TABLET PO (09:07)
[2022-05-08] MEDS: predniSONE 20 MG, predniSONE 10 MG 30 MG PO (09:07)
[2022-05-08] MEDS: busPIRone HCL 5 MG TABLET 10 MG PO ×2 (09:07→21:21)
[2022-05-08] MEDS: guaiFENesin 12 HR 600 MG TABCR PO ×2 (09:07→21:22)
[2022-05-08] MEDS: SODIUM CHLORIDE 500 MG TABLET PO ×2 (09:08→17:02)
[2022-05-08] MEDS: ALBUTEROL SULFATE NEB 2.5 MG/3 ML INH INHALATION (09:45)
--- NOTE | 2022-05-08 10:43 | PM.PNPUL ---
Progress Note: A&P Assessment and Plan (1) COPD (chronic obstructive pulmonary disease): Qualifiers: COPD type: emphysema Emphysema type: unspecified Qualified Code(s): J43.9 - Emphysema, unspecified Code(s): J44.9 - Chronic obstructive pulmonary disease, unspecified Status: Acute Assessment and Plan: 76-year-old female with chronic hypoxemic respiratory failure related to severe COPD/emphysema with evidence of large emphysematous air sacks on chest CT has been treated for COPD exacerbation related to recent influenza infection. Has been on IV antibiotics and steroids. on physical exam there has been less hyperinflation and improving expiratory wheezing bilaterally. Of note the patient has end-stage COPD with hypercarbic hypoxemic respiratory failure with previous intolerance to home ventilatory support. on last blood gases she had minimally elevated pCO2 which is not high enough to qualify for home ventilatory support. Her respiratory status has improved over the last 2 days. Will repeat chest x-ray Prior to DC home. Okay to discharge patient home on a tapering prednisone regimen, like 20 mg for 4 days, then 15 mg for 4 days, then 10 mg for 4 days, then 5 md for 4 days, then stop. patient will continue with her maintenance bronchodilator and short-acting bronchodilators as before. She will continue on supplemental oxygen. She does not qualify for home ventilatory support. she needs to return to pulmonary clinic for follow-up in approximately 3 weeks. Will sign off call with any questions (2) Acute respiratory failure with hypoxia and hypercarbia: Code(s): J96.01 - Acute respiratory failure with hypoxia; J96.02 - Acute respiratory failure with hypercapnia Status: Acute (3) Chronic respiratory failure: Code(s): J96.10 - Chronic respiratory failure, unspecified whether with hypoxia or hypercapnia Status: Chronic (4) Diastolic heart failure: Qualifiers: Heart failure chronicity: acute on chronic Qualified Code(s): I50.33 - Acute on chronic diastolic (congestive) heart failure Code(s): I50.30 - Unspecified diastolic (congestive) heart failure Status: Chronic Subjective Date/time seen: 05/08/22 10:43 patient without any new respiratory symptoms. She slept well last night. She started to ambulate in room. Review of Systems Review of Systems: All systems reviewed & are unremarkable except as noted in HPI and below Exam Narrative: GENERAL APPEARANCE: Well developed, Elderly female looking chronically ill, in moderate respiratory distress while sitting up in bed. Currently receiving supplemental oxygen via nasal cannula. SKIN: Inspection of the skin reveals no rashes, ulcerations or petechiae. HEENT: Sclerae anicteric and conjunctivae pink and moist. Extraocular movements were intact and pupils were equal, round. Dry oral mucosa NECK: Supple. There was no thyroid enlargement, and no tenderness, or masses were felt. CHEST: Normal AP diameter and normal contour without any kyphoscoliosis. hyperinflated chest LUNGS: Auscultation of the lungs revealed distant breath sounds bilaterally and expiratory wheezing bilaterally CARDIAC: There was a regular rate and rhythm without any murmurs, gallops, rubs. ABDOMEN: Soft and nontender with normal bowel sounds. There was no organomegaly. LYMPH NODES: No lymphadenopathy was appreciated in the neck. NEUROLOGIC: Alert and oriented x 3. Normal affect. Objective Data Vital Signs Vital Signs: Vital Signs - 24 hr 05/07/22 14:00 05/07/22 14:08 05/07/22 14:21 Temperature 36.9 C Pulse Rate 113 H 97 96 Respiratory Rate 20 20 20 Blood Pressure 128/77 Pulse Oximetry 100 Oxygen Delivery Oxygen Flow Rate 05/07/22 21:00 05/07/22 21:12 05/08/22 03:23 Temperature 36.1 C L Pulse Rate 77 103 H 82 Respiratory Rate 16 16 18 Blood Pressure 132/66 Pulse Oximetry 100 Oxygen Deliv
--- NOTE | 2022-05-08 14:39 | PCPTNOTE ---
new PT orders received, attempted PT evaluation 1330- pt stated she did not want therapy at this time; has been up to chair several times and to bedside commode; did not want to walk at this time, feels like she is doing OK with moving around.
[2022-05-08] MEDS: LORazepam (*CRX) 0.5 MG TABLET PO (21:22)
[2022-05-09] VITALS (11 sets, daily range): BP systolic 118–149; BP diastolic 68–82; PULSE 90–117; RESP 16–24; TEMP 36.2–36.6; O2SAT 95–100
[2022-05-09] MEDS: IPRATROPIUM BR 0.02% INH SOLN 0.5 MG/2.5 ML VIAL INHALATION ×5 (02:47→21:41)
[2022-05-09] MEDS: SIMVASTATIN 10 MG TABLET PO (08:05)
[2022-05-09] MEDS: ENOXAPARIN 40 MG/0.4 ML SYRINGE SUB-Q (08:05)
[2022-05-09] MEDS: ALBUTEROL SULFATE NEB 2.5 MG/3 ML INH INHALATION (08:05)
[2022-05-09] MEDS: predniSONE 20 MG, predniSONE 10 MG 30 MG PO (08:06)
[2022-05-09] MEDS: busPIRone HCL 5 MG TABLET 10 MG PO ×2 (08:06→20:22)
[2022-05-09] MEDS: guaiFENesin 12 HR 600 MG TABCR PO ×2 (08:06→20:22)
[2022-05-09] MEDS: SODIUM CHLORIDE 500 MG TABLET PO ×2 (08:06→17:04)
--- NOTE | 2022-05-09 13:34 | PM.IMPN ---
Progress Note: A&P Assessment and Plan (1) Acute respiratory failure with hypoxia and hypercarbia: Code(s): J96.01 - Acute respiratory failure with hypoxia; J96.02 - Acute respiratory failure with hypercapnia Status: Acute Assessment and Plan: Increased dyspnea with wheezing and required 1 liter O2 nasal cannula on admission. Secondary to influenza, acute exacerbation of COPD and presumed CHF exacerbation. ABG 7.4/48/78 on 1L. Hx of chronic hypercapnia. Continue supplemental O2 to keep sats>90%. Per RN, can't get her down below 0.5L because her SpO2 drops to high 80's; suspect anxiety playing a part. Pulmozyme stopped. She completed Tamiflu. Continue flutter valve. Pulmonary following. CTA chest showing no PE but severe emphysema and increasing AAA. WBC elevated but related to steroids. Appreciate pulmonology consultation, cont rocephin, wean steroid to oral taper as suggested by Pulmonary On ceftriaxone which will be switched to cefdinir today (2) Influenza A: Code(s): J10.1 - Influenza due to other identified influenza virus with other respiratory manifestations Status: Acute Assessment and Plan: Patient with low-grade temp. Influenza A PCR positive on admission and she has known exposure. She completed Tamiflu. Recommended influenza vaccination and pneumococcal vaccination when able. (3) COPD (chronic obstructive pulmonary disease): Qualifiers: COPD type: emphysema Emphysema type: unspecified Qualified Code(s): J43.9 - Emphysema, unspecified Code(s): J44.9 - Chronic obstructive pulmonary disease, unspecified Status: Acute Assessment and Plan: Acute exacerbation of chronic disease exacerbated by influenza A. Chest CTA showing severe emphysema and no infiltrates. No increase in sputum or change in color so abx still not indicated at this time. She is a former smoker. No prior admissions for COPD since November 2020. Continue steroids, nebs, inhaler and mucinex. (4) Anxiety: Code(s): F41.9 - Anxiety disorder, unspecified Status: Chronic Assessment and Plan: Chronic. Celexa held given hyponatremia. PRN lorazepam available and getting this frequently. Continue Buspar. Tamiflu can cause delirium and behavioral disturbance so may be part of the issue especially since her symptoms are better today since she completed the course. Also on steroids which could be contributing. As above. (5) Hyponatremia: Code(s): E87.1 - Hypo-osmolality and hyponatremia Status: Acute Assessment and Plan: Sodium 128 on admission. She reports anorexia and some loose stool. Urine Na 14. BP soft at times. Cortisol low but she is on steroids. TSH also low but not uncommon for her and FT4 normal. Celexa held. NaCl tabs started. Na 126 today. Still not eating much. Continue to monitor. Continue supplements. Check bladder US given the exam findings. Repeat urine studies. Check UA Recheck labs (6) Chronic respiratory failure: Code(s): J96.10 - Chronic respiratory failure, unspecified whether with hypoxia or hypercapnia Status: Chronic Assessment and Plan: She does wear 2 L O2 at night but has been a using oxygen during the day over the past 5-6 days prior to admission because of shortness of breath.??Continue to wean O2 as tolerated. May now have O2 requirement during the day. will order home oxygen evaluation (7) Diastolic heart failure: Qualifiers: Heart failure chronicity: acute on chronic Qualified Code(s): I50.33 - Acute on chronic diastolic (congestive) heart failure Code(s): I50.30 - Unspecified diastolic (congestive) heart failure Status: Chronic Assessment and Plan: Presumed acute exacerbation of chronic diastolic CHF. CXR shows emphysema and no pedal edema. BNP elevated 1570. She reports chronic orthopnea and progressively worsening dyspnea. Sodium did improve with IV lasix suggesting hyper
[2022-05-09] MEDS: ACETAMINOPHEN 325 MG TABLET 650 MG PO (20:22)
[2022-05-09] MEDS: LORazepam (*CRX) 0.5 MG TABLET PO (20:23)
[2022-05-10] VITALS (7 sets, daily range): BP systolic 134; BP diastolic 71; PULSE 94–124; RESP 18–20; TEMP 36.4; O2SAT 94–99
[2022-05-10 07:16] LABS: Basophils Percent Auto 0.4 % (0.2-1.2); Eosinophils Absolute Auto 0.1 K/mm3 (0-0.3); Eosinophils Percent Auto 1.1 % (0-4.4); Hematocrit 36.7 % (37.0-47.0); Hemoglobin 11.9 g/dL (12.0-15.0); Immature Granulocyte Absolute 0.17 K/mm3 (0.00-0.031); Immature Granulocyte Percent A 2.4 % (0-0.5); Lymphocytes Absolute Auto 1.03 K/mm3 (0.9-3.2); Lymphocytes Percent Auto 14.7 % (18.3-44.2); Mean Corpuscular HGB Conc 32.4 g/dl (32-36); Mean Corpuscular Hemoglobin 32.9 pg (26-34); Mean Corpuscular Volume 101.4 fl (80-100); Mean Platelet Volume 8.2 fl (7.4-10.4); Monocytes Absolute Auto 0.5 K/mm3 (0.1-0.6); Monocytes Percent Auto 6.4 % (2.6-8.5); Neutrophils Absolute Auto 5.3 K/mm3 (1.3-6.7); Platelet Count Result 271 k/mm3 (150-375); Red Blood Count 3.62 M/mm3 (4.2-5.4); Red Cell Distribution Width 12.9 % (11.5-14.5)
[2022-05-10 07:24] LABS: Alanine Aminotransferase 36 U/L (6-35); Albumin Level 3.9 g/dL (3.5-5.1); Alkaline Phosphatase 47 U/L (38-126); Anion Gap 4 mmol/L (8-16); Aspartate Amino Transferase 27 U/L (14-36); Bilirubin,Total 0.4 mg/dL (0.2-1.3); Blood Urea Nitrogen 7 mg/dL (7-17); Calcium 8.4 mg/dL (8.4-10.2); Carbon Dioxide 37 mmol/L (22-30); Chloride 92 mmol/L (98-107); Estimated CRCL calculation 75 ml/min; Estimated Glomerular Filt Rate > 60; Glucose 99 mg/dL (65-110); Magnesium 2.1 mg/dL (1.6-2.3); Potassium 3.9 mmol/L (3.4-5.0); Sodium 133 mmol/L (137-145)
--- NOTE | 2022-05-10 07:58 | PCRCNOTE ---
PATIENT HAS HOME O2 WITH [facility]. [phone]. TO BRING IN TANK FOR DISCHARGE.
[2022-05-10] MEDS: guaiFENesin 12 HR 600 MG TABCR PO (08:20)
[2022-05-10] MEDS: predniSONE 20 MG, predniSONE 10 MG 30 MG PO (08:20)
[2022-05-10] MEDS: ENOXAPARIN 40 MG/0.4 ML SYRINGE SUB-Q (08:20)
[2022-05-10] MEDS: busPIRone HCL 5 MG TABLET 10 MG PO (08:21)
[2022-05-10] MEDS: SIMVASTATIN 10 MG TABLET PO (08:21)
[2022-05-10] MEDS: SODIUM CHLORIDE 500 MG TABLET PO (08:21)
[2022-05-10] MEDS: IPRATROPIUM BR 0.02% INH SOLN 0.5 MG/2.5 ML VIAL INHALATION (09:18)
[2022-05-10] MEDS: CEFDINIR 300 MG CAPSULE PO (10:10)
--- NOTE | 2022-05-10 10:28 | PCNFU ---
Nutrition Follow-Up Complete: unintentional weight loss related to reduced appetite and intake as evidenced reported wt loss and family report during assessment. Goal:PO intake 75% of meals and supplements. Pt is meeting goal. Continue with current goal. Pt current nutrition is Regular, Ensure compact BID. Nutrition recommendation: Continue with current plan of care Last recorded weight is 49.1 kg - wt stable Bowel Motility: +BM 05/09 Labs Reviewed: Hgb:11.9, HCT:36.7, NA:133, Cr:0.4 Meds Noted: lovenox, prednisone Skin: WNL Additional Notes: Pt continues on a regular diet with Ensure compact BID in place. Intake is good at 100% of meals. Wt stable. Agree with diet orders. Monitor intake, wt, labs. Follow up in 7 days.
--- NOTE | 2022-05-10 12:37 | PM.DS ---
DS: Admitting Diagnosis Discharge Date 05/10/2022 Admitting Diagnosis Shortness of breath DS: Discharge Diagnosis Discharge Diagnosis (1) Acute respiratory failure with hypoxia and hypercarbia: Code(s): J96.01 - Acute respiratory failure with hypoxia; J96.02 - Acute respiratory failure with hypercapnia Status: Acute (2) Influenza A: Code(s): J10.1 - Influenza due to other identified influenza virus with other respiratory manifestations Status: Acute (3) COPD (chronic obstructive pulmonary disease): Qualifiers: COPD type: emphysema Emphysema type: unspecified Qualified Code(s): J43.9 - Emphysema, unspecified Code(s): J44.9 - Chronic obstructive pulmonary disease, unspecified Status: Acute (4) Anxiety: Code(s): F41.9 - Anxiety disorder, unspecified Status: Chronic (5) Hyponatremia: Code(s): E87.1 - Hypo-osmolality and hyponatremia Status: Acute (6) Chronic respiratory failure: Code(s): J96.10 - Chronic respiratory failure, unspecified whether with hypoxia or hypercapnia Status: Chronic (7) Diastolic heart failure: Qualifiers: Heart failure chronicity: acute on chronic Qualified Code(s): I50.33 - Acute on chronic diastolic (congestive) heart failure Code(s): I50.30 - Unspecified diastolic (congestive) heart failure Status: Chronic (8) Transaminitis: Code(s): R74.01 - Elevation of levels of liver transaminase levels Status: Acute (9) Essential hypertension: Code(s): I10 - Essential (primary) hypertension Status: Chronic DS: Summary Hospital Course Hospital Course: # Acute respiratory failure with hypoxia and hypercarbia: Increased dyspnea with wheezing and required 1 liter O2 nasal cannula on admission. Secondary to influenza, acute exacerbation of COPD and presumed CHF exacerbation. ABG 7.4/48/78 on 1L. Hx of chronic hypercapnia. Continue supplemental O2 to keep sats>90%. Per RN, can't get her down below 0.5L because her SpO2 drops to high 80's; suspect anxiety playing a part. Pulmozyme stopped. She completed Tamiflu. Continue flutter valve. Pulmonary following. CTA chest showing no PE but severe emphysema and increasing AAA. WBC elevated but related to steroids. Appreciate pulmonology consultation, cont rocephin,? wean steroid to oral taper as suggested by Pulmonary On ceftriaxone which will be switched cefdinir at discharge # influenza a: Patient with low-grade temp. Influenza A PCR positive on admission and she has known exposure. She completed Tamiflu. Recommended influenza vaccination and pneumococcal vaccination when able. # COPD exacerbation: Acute exacerbation of chronic disease exacerbated by influenza A.? Chest CTA showing severe emphysema and no infiltrates. No increase in sputum or change in color so abx still not indicated at this time.? She is a former smoker. No prior admissions for COPD since November 2020. Continue steroids, nebs, inhaler and mucinex.? # anxiety disorder: Chronic. Celexa held given hyponatremia. PRN lorazepam available and getting this frequently. Continue Buspar. Tamiflu can cause delirium and behavioral disturbance so may be part of the issue especially since her symptoms are better today since she completed the course. Also on steroids which could be contributing. As above. # hyponatremia: Sodium 128 on admission. She reports anorexia and some loose stool. Urine Na 14. BP soft at times. Cortisol low but she is on steroids. TSH also low but not uncommon for her and FT4 normal. Celexa held. NaCl tabs started. Sodium improved will continue to hold Celexa at discharge because of this reason # Chronic respiratory failure: She does wear 2 L O2 at night but has been a using oxygen during the day over the past 5-6 days prior to admission because of shortness of breath.??Continue to wean O2 as tolerated. home oxygen evaluation done at the time of discharge and did
== END 2022-05-10 13:15 | disposition home health service (06) | DRG 291 ==
LOC: ANHED 11:34 → ANH3MEDSUR 12:05
PROVIDERS: Internal Medicine; Nurse Practitioner Family; Admitting Provider Internal Medicine; Emergency Provider Emergency Medicine; PCP Internal Medicine; Visit Provider Internal Medicine
DX: I11.0 Hypertensive heart disease with heart failure (principal); J96.02 Acute respiratory failure with hypercapnia; J96.21 Acute and chronic respiratory failure with hypoxia; E87.1 Hypo-osmolality and hyponatremia; I50.30 Unspecified diastolic (congestive) heart failure; J43.9 Emphysema, unspecified; J10.1 Influenza due to other identified influenza virus with other respiratory manifestations; F41.9 Anxiety disorder, unspecified; R74.01 Elevation of levels of liver transaminase levels; Z99.81 Dependence on supplemental oxygen; G47.33 Obstructive sleep apnea (adult) (pediatric); Z96.643 Presence of artificial hip joint, bilateral; Z82.49 Family history of ischemic heart disease and other diseases of the circulatory system; Z83.3 Family history of diabetes mellitus; Z80.0 Family history of malignant neoplasm of digestive organs; Z20.822 Contact with and (suspected) exposure to COVID-19; Z80.42 Family history of malignant neoplasm of prostate; Z81.1 Family history of alcohol abuse and dependence; Z82.61 Family history of arthritis; Z87.891 Personal history of nicotine dependence; Z79.51 Long term (current) use of inhaled steroids; Z79.52 Long term (current) use of systemic steroids; Z79.899 Other long term (current) drug therapy
CPT/HCPCS: 36415; 36600; 71045; 71046; 71275; 80048; 80053; 80074; 81003; 82375; 82533; 82570; 82607; 82746; 82805; 83050; 83735; 83880; 83935; 84295; 84300; 84439; 84443; 84480; 84540; 85025; 85610; 85730; 86140; 87040; 87637; 93005; 93306; 94618; 94640; 94667; 94668; 96365; 96367; 96372; 96375; 96376; 97110; 97161; 97165; 97535; 99285; A9270; G0378; J0131; J0696; J1650; J1940; J2060; J2405; J2920; J2930; J3250; J3475; J7512; Q9967

== ENCOUNTER 2023-05-04 13:58 | Outpatient (CLI) | payer MEDICARE, OTHER, SELFPAY ==
--- NOTE | ~2023-05-04 | CT_ITS ---
CT Scan of the Chest without Contrast: Clinical Indication: Lung cancer screening, personal history of nicotine dependence Technique: Contiguous sections were acquired throughout the chest without intravenous contrast. Dose reduction technique was used on this scan by utilizing automated exposure control and iterative recon struction technique. The dose-length product (DLP) was 59.89 mGy-cm. COMPARISON: 05/02/2022, 06/15/2021 Findings: There is no evidence of any significant mediastinal, hilar or axillary lymphadenopathy. There are ath erosclerotic calcifications of the aorta and coronary arteries. There is no evidence of pleural or pericardial effusion. There is severe emphysema with biapical scarring, unchanged. No distinct pulmonary nodule evident. Images through the upper abdomen reveal eccentric, saccular aneurysm at the right side of the upper a bdominal aorta just distal to the aortic hiatus, which this probably similar to prior exam, measuring up to approximately 3.6 cm in diameter.. Impression: Lung RADS 2: Benign appearance. 12 month follow-up screening CT advised. 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 Consider contrast enhanced exam to further evaluate the aneurysm for interval change, if clinically indicated. Reviewed, dictated and finalized at location . [facility] Impression: Lung RADS 2: Benign appearance. 12 month follow-up screening CT advised. 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 Conside r contrast enhanced exam to further evaluate the aneurysm for interval change, if clinically indicated.
== END 2023-05-04 13:59 | disposition home or self-care (01) ==
PROVIDERS: PCP Internal Medicine; Visit Provider Nurse Practitioner Family
DX: Z12.2 Encounter for screening for malignant neoplasm of respiratory organs (principal); Z87.891 Personal history of nicotine dependence
CPT/HCPCS: 71271

== ENCOUNTER 2023-09-15 12:12 | Outpatient (CLI) | payer MEDICARE, OTHER, SELFPAY ==
--- NOTE | 2023-09-15 12:35 | ECHO_ITS ---
Patient Info Name: Ana Laura Monzon Age: 78 years : 1945 Gender: Female Ht: 64 in Wt: 106 lbs BSA: 1.47 m2 HR: 119 bpm BP: 130 / 106 mmHg Technical Quality: Good Exam Date: 09/15/2023 12:52 PM Exam Location: Echo Lab Patient Status: Outpatient Admit Date: 09/15/2023 Staff Ordering Physician: Lan Garcia APRN [employer]: Tyler Moss RDCS Attending Provider: Lan Garcia APRN Referring Physician: Jose TEMPLETON; Exam Type: CA echo doppler color flow Study Info Indications - other forms of dyspnea Complete two-dimensional, color flow and Doppler transthoracic echocardiogram is performed. Summary 1. Complete two-dimensional, color flow and Doppler transthoracic echocardiogram is performed. 2. Left ventricular chamber dimension is normal. 3. Left ventricular systolic function is hyperdynamic, estimated at >70%. 4. The left ventricular diastolic function is grade I diastolic dysfunction. 5. E/e' 7 is not elevated. 6. There is mild aortic valve sclerosis. 7. No pulmonary hypertension, estimated pulmonary arterial systolic pressure is 30 mmHg. Left Ventricle E/e' 7 is not elevated. Left ventricular chamber dimension is normal. Left ventricular systolic function is hyperdynamic, estimated at >70%. The left ventricular diastolic function is grade I diastolic dysfunction. Right Ventricle Right ventricular systolic function is normal and with normal TAPSE 1.8 cm. Right ventricular chamber dimension is normal. Left Atria Left atrial chamber dimension is normal. Right Atria Right atrial chamber dimension is normal. Aortic Valve The aortic valve is probable trileaflet. There is mild aortic valve sclerosis. There is no aortic valve stenosis. There is no aortic valve regurgitation. Pulmonic Valve There is no pulmonic regurgitation. Mitral Valve There is no mitral valve stenosis. There is no mitral valve regurgitation. Tricuspid Valve There is no tricuspid valve regurgitation. No pulmonary hypertension, estimated pulmonary arterial systolic pressure is 30 mmHg. Pericardium/Pleural There is no pericardial effusion. Inferior Vena Cava Normal inferior vena cava with >50% collapse upon inspiration consistent with normal right atrial pressure, 5 mmHg. Aorta The aortic root size at the sinus of Valsalva is normal. Left Ventricular Outflow Tract Name Value Normal LVOT 2D LVOT Diameter 2.0 cm LVOT Doppler LVOT Peak Gradient 3 mmHg LVOT Mean Gradient 2 mmHg LVOT VTI 20 cm LVOT VTI/AV VTI Ratio 0.7 LVOT Stroke Volume 61 ml LVOT CO 6.2 l/min LVOT CI 4.2 l/min/m2 Pulmonic Valve Name Value Normal RVOT Doppler RVOT Peak Gradient 3 mmHg PV Doppler
== END 2023-09-15 12:13 | disposition home or self-care (01) ==
LOC: ANHCARD 12:12
PROVIDERS: PCP Internal Medicine; Visit Provider Nurse Practitioner Family
DX: R06.09 Other forms of dyspnea (principal); I27.20 Pulmonary hypertension, unspecified
CPT/HCPCS: 93306

== ENCOUNTER 2024-04-22 06:02 | Inpatient (IN) | payer MEDICARE, OTHER, SELFPAY ==
[2024-04-22] VITALS (23 sets, daily range): BP systolic 96–158; BP diastolic 57–79; PULSE 86–116; RESP 20–39; TEMP 37.1–37.6; O2SAT 94–100; BMI 16.7
--- NOTE | ~2024-04-22 | XR_ITS ---
Portable chest x-ray Comparison: 05/08/2022 Clinical History: Shortness of breath Findings: Small right pleural effusion is present with right basilar/peripheral consolidation. Under lying COPD. Cardiomediastinal silhouette is stable. Bones and soft tissues are unremarkable. Impression: Right lower lobe pneumonia with small right pleural effusion. Underlying COPD. Reviewed, dictated and finalized at [facility]. 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 Underlying COPD.
--- NOTE | 2024-04-22 06:13 | ECG_ITS ---
Test Date: 2024-04-22 06:20:11 Measurements Intervals [place] Rate: 117 P: 72 MN: 179 QRS: 66 QRSD: 78 T: 72 QT: 293 QTc: 409 Interpretive Statements SINUS TACHYCARDIA POSSIBLE LEFT ATRIAL ENLARGEMENT BASELINE ARTIFACT- I, II, III, AVR, AVL, AVF, V1-V6 ABNORMAL ECG No previous ECG available for comparison Electronically Signed On 04-22-2024 07:56:40 FINANCIAL ACCOUNTING MANAGER by Alexis Carlton D.O.
[2024-04-22 06:27] LABS: Basophils Absolute Auto 0.1 K/mm3 (0.0-0.1); Basophils Percent Auto 0.4 % (0.2-1.2); Eosinophils Percent Auto 0.1 % (0-4.4); Hematocrit 34.5 % (37.0-47.0); Hemoglobin 10.5 g/dL (12.0-15.0); Immature Granulocyte Absolute 0.24 K/mm3 (0.00-0.031); Immature Granulocyte Percent A 1.7 % (0-0.5); Lymphocytes Absolute Auto 0.98 K/mm3 (0.9-3.2); Lymphocytes Percent Auto 6.9 % (18.3-44.2); Mean Corpuscular HGB Conc 30.4 g/dl (32-36); Mean Corpuscular Hemoglobin 31.7 pg (26-34); Mean Corpuscular Volume 104.2 fl (80-100); Mean Platelet Volume 9.1 fl (7.4-10.4); Monocytes Absolute Auto 0.7 K/mm3 (0.1-0.6); Monocytes Percent Auto 5.2 % (2.6-8.5); Neutrophils Absolute Auto 12.2 K/mm3 (1.3-6.7); Neutrophils Percent Auto 85.7 % (45.5-73.1); Platelet Count Result 335 k/mm3 (150-375); Red Blood Count 3.31 M/mm3 (4.2-5.4); Red Cell Distribution Width 13.9 % (11.5-14.5); White Blood Count 14.3 K/mm3 (4.5-10.0)
[2024-04-22 06:37] LABS: Alanine Aminotransferase 23 U/L (6-35); Albumin Level 3.9 g/dL (3.5-5.1); Alkaline Phosphatase 119 U/L (38-126); Aspartate Amino Transferase 37 U/L (14-36); Bilirubin,Total 0.3 mg/dL (0.2-1.3); Blood Urea Nitrogen 24 mg/dL (7-17); Calcium 9.7 mg/dL (8.4-10.2); Carbon Dioxide > 40 mmol/L (22-30); Chloride 98 mmol/L (98-107); Estimated CRCL calculation 62 ml/min; Estimated Glomerular Filt Rate > 60; Glucose 124 mg/dL (65-110); Potassium 4.4 mmol/L (3.4-5.0); Sodium 144 mmol/L (137-145)
--- NOTE | 2024-04-22 07:13 | PC.NURSE ---
report given to TITO Grimes at this time.
[2024-04-22 08:12] LABS: NT Pro B Type Natriuretic Pept 203 pg/mL (19.9-100); Troponin I < 0.012 ng/mL (0.000-0.034)
--- NOTE | 2024-04-22 08:24 | ED_ITS ---
HPI - SOB/Dyspnea General Chief Complaint: Shortness of Breath/Dyspnea Stated Complaint: dyspnea, weakness Time Seen by Provider: 04/22/24 07:10 Source: patient, RN notes reviewed and old records reviewed Mode of arrival: EMS Limitations: no limitations History of Present Illness HPI Narrative: This is a 78 year old female with history of COPD, chronic respiratory failure , on 3 L NC who presents for evaluation of shortness of breath. She states her shortness of breath has worsened over past 2 weeks. She is having difficulty coughing up sputum. she denies fever, chills, worsening cough, edema, chest pain, nausea, vomiting or diarrhea. She has been using albuterol inhaler at home. Related Data Home Medications Medication Instructions Recorded Confirmed ascorbic acid (vitamin C) 1,000 mg 1 g PO DAILY 08/23/22 03/28/24 capsule multivitamin (Daily Multi-Vitamin 1 tablet PO DAILY 08/23/22 03/28/24 tablet) ensifentrine 3 mg/2.5 mL 2.5 ml inhalation QAM AND QPM 03/28/24 03/28/24 suspension for nebulization (Ohtuvayre) Allergies Allergy/AdvReac Type Severity Reaction Status Date / Time fluticasone furoate AdvReac Severe Rash Verified 03/28/24 14:21 [From Trelegy Ellipta] umeclidinium AdvReac Severe Rash Verified 03/28/24 14:21 [From Trelegy Ellipta] vilanterol AdvReac Severe Rash Verified 03/28/24 14:21 [From Trelegy Ellipta] Review of Systems Cardiovascular: Cardiovascular: Denies chest pain and Denies rapid heart rate Respiratory: Respiratory: Reports cough, Reports dyspnea and Reports wheezing Gastrointestinal: Gastrointestinal: Denies diarrhea, Denies nausea and Denies vomiting PMF Past Medical History Medical History Anxiety CHF (congestive heart failure), NYHA class I Diastolic Chronic respiratory failure 2L nocturnal home O2 COPD (chronic obstructive pulmonary disease) Cystoid macular edema following cataract surgery, bilateral Essential hypertension Former smoker Hyperlipidemia KRIS on CPAP Intolerable of a CPAP Spontaneous pneumothorax Suprarenal aortic aneurysm Surgical History Surgical History H/O cataract extraction Bilateral H/O tubal ligation History of breast biopsy History of cholecystectomy History of total hip arthroplasty Bilateral S/P thoracotomy with pleurodesis, Right spontaneous pneumothorax. ~2004 Family History Family History Father Cerebrovascular accident, Onset Age: 87 Patient's father is Mother Patient's mother is Diabetes mellitus Hypertension Family history of cardiovascular disease Sibling Patient's brother is Family history of obesity Hypertension Patient's brother is in good health Malignant neoplasm of prostate Family history of diabetes mellitus in first degree relative Diabetes mellitus Family history of alcoholism Family history of arthritis Family history of malignant neoplasm of esophagus Social History Social History Social History: The patient lives with her and she has 2 children. Her is a durable power estate attorney for healthcare. 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 She has 1 beagle at home. Smoking packs per day: 2 Smoking cigarettes per day: 40.0 Years smoked: 50 Smoking pack-years: 100.00 Smoking status: Former smoker Tobacco type: cigarettes Second hand tobacco smoke exposure: No Smoking end date: 06/06/14 Alcohol intake: current Drinks per week: 7 Alcohol use details: Wine. CAGE 0. Substance use: never Substance use type: does not use Lack of Transportation: No Lack of Food: Never True Current Housing: I Have Housing Concerned About Future Housing: No Difficulty Paying Gas/Electric Bills: No Difficulty Paying for Meds: No Currently Unemployed: No Education: High School Diploma/GED Difficulty w/ Childcare or Family Care: No Living arrangements: with family Occupation/Education: retired Gender identity (if verbalized by the patient): Female Spiritual care concerns: No Exam Const: General: alert and ill appearing Orientation/consciousness: patient oriented x3 HENMT: Head: normal to inspection Eyes: EOM: EOMs intact bilaterally Resp: Effort & Inspection: tachypneic Auscultation: wheezes expiratory wheezes and throughout Cardio: Rate: tachycardic Rhythm: regular rhythm Heart sounds: Murmur heart sound present GI: GI Palp: Yes Soft to palpation, No Tenderness to palpation present (GI), No Guarding due to palpation present (GI) and No Rigid due to palpation Auscultation: normal bowel sounds Neuro: General: patient oriented x3 and moves all extremities Cranial nerves: Yes Nystagmus not present Extrem: General: normal to inspection Psych: Mental Status: mental status grossly normal Affect: normal affect Attitude: cooperative Course Reevaluation(s) Reevaluation #1: Patient was given solumedrol IV, albuterol neb. She still appeared to have some difficulty breathing so she was placed on BIPAP. Patient appeared to have less work of breathing but she demanded for it to be taken off after 1 hour. She states she does not want to be intubated or placed on ventilator. Her family is at bedside during this discussion . PAtient started on antibiotics for a pneumo arun. Date: 04/22/24 Time: 11:31 Consultations Consultation #1: I discussed case with hospitalist Dr. Hahn who accepts to IMU. He request for flagyl to be added to IV antibiotics. Date: 04/22/24 Time: 10:40 Vital Signs Vital signs: Vital Signs Temperature 99.6 F 04/22/24 06:03 Pulse Rate 116 H 04/22/24 06:03 Respiratory Rate 20 04/22/24 06:03 Blood Pressure 143/77 H 04/22/24 06:03 Pulse Oximetry 100 04/22/24 06:03 Oxygen Delivery Nasal Cannula 04/22/24 06:03 Oxygen Flow Rate 4 04/22/24 06:03 Temperature 99.6 F 04/22/24 06:03 Pulse Rate 114 H 04/22/24 10:42 Respiratory Rate 39 H 04/22/24 10:42 Blood Pressure 158/79 H 04/22/24 10:21 Pulse Oximetry 94 04/22/24 10:21 Oxygen Delivery BiPAP 04/22/24 09:25 Oxygen Flow Rate 4 04/22/24 06:11 MDM - SOB/Dyspnea Lab Data 04/22/24 06:20 04/22/24 06:20 Labs: Lab Results 04/22/24 04/22/24 Range/Units 06:20 07:49 WBC 14.3 H (4.5-10.0) K/mm3 RBC 3.31 L (4.2-5.4) M/mm3 Hgb 10.5 L (12.0-15.0) g/dL Hct 34.5 L (37.0-47.0) % MCV 104.2 H (80-100) fl MCH 31.7 (26-34) pg MCHC 30.4 L (32-36) g/dl RDW 13.9 (11.5-14.5) % Plt Count 335 (150-375) k/mm3 MPV 9.1 (7.4-10.4) fl Immature Gran % (Auto) 1.7 H (0-0.5) % Neut % (Auto) 85.7 H (45.5-73.1) % Lymph % (Auto) 6.9 L (18.3-44.2) % Jessamine % (Auto) 5.2 (2.6-8.5) % Eos % (Auto) 0.1 (0-4.4) % Baso % (Auto) 0.4 (0.2-1.2) % Lymph # (Auto) 0.98 (0.9-3.2) K/mm3 Jessamine # (Auto) 0.7 H (0.1-0.6) K/mm3 Eos # (Auto) 0.0 (0-0.3) K/mm3 Baso # (Auto) 0.1 (0.0-0.1) K/mm3 Abs Immat Gran (auto) 0.24 H (0.00-0.031) K/mm3 Absolute Neuts (auto) 12.2 H (1.3-6.7) K/mm3 Absolute Nucleated RBC 0.000 (0.0-0.012) K/mm3 Nucleated RBC % 0.0 (0.0-0.2) % PT 14.8 H (11.1-14.7) Seconds INR 1.1 APTT 30.9 (22.3-36.8) Seconds Methemoglobin 0.2 (0-1.5) %THb Sodium 144 (137-145) mmol/L Potassium 4.4 (3.4-5.0) mmol/L Chloride 98 (98-107) mmol/L Carbon Dioxide > 40 H (22-30) mmol/L Anion Gap (4-12) mmol/L BUN 24 H D (7-17) mg/dL Creatinine 0.40 L (0.7-1.0) mg/dL Estim Creat Clear Calc 62 ml/min Estimated GFR > 60 (59 - ) Glucose 124 H (65-110) mg/dL Calcium 9.7 (8.4-10.2) mg/dL Total Bilirubin 0.3 (0.2-1.3) mg/dL AST 37 H (14-36) U/L ALT 23 (6-35) U/L Alkaline Phosphatase 119 (38-126) U/L Troponin I < 0.012 (0.000-0.034) ng/mL NT-Pro-B Natriuret Pep 203 H (19.9-100) pg/mL Total Protein 9.0 H (6.3-8.2) g/dL Albumin 3.9 (3.5-5.1) g/dL ABG Data ABG results: 04/22/24 07:49 Puncture Site Right radial ABG pH 7.392 ABG pCO2 55.3 H ABG pO2 92.6 ABG PO2/FiO2 Ratio 2.89 ABG HCO3 32.9 H ABG O2 Saturation 96.9 ABG O2 Content 17.8 ABG Base Excess 6.4 A-a Gradient 70.9 Oxyhemoglobin 96.8 Carboxyhemoglobin 0.8 Reduced Hemoglobin 2.2 Total Hemoglobin 13.0 O2 Delivery Device Nasal cannula O2 Liters/Min 3.0 FiO2 32 Critical Care Time Critical Care Time Critical Care Time: Yes Total Critical Care Time: 40 Discharge Plan Discharge Clinical Impression: Pneumonia, Acute and chronic respiratory failure Patient Disposition: Still a Patient Condition: Serious Prescriptions: No Action albuterol sulfate 90 mcg/actuation HFA aerosol inhaler 2 inh INHALATION Q4-6H PRN (Reason: shortness of breath or wheezing) Qty: 18 5RF Ohtuvayre 3 mg/2.5 mL suspension for nebulization 2.5 ml inhalation QAM AND QPM multivitamin [Daily Multi-Vitamin] Tablet 1 tablet PO DAILY ascorbic acid (vitamin C) 1,000 mg capsule 1 g PO DAILY lisinopril 20 mg tablet 20 mg PO DAILY Qty: 90 2RF albuterol sulfate 2.5 mg /3 mL (0.083 %) solution for nebulization 2.5 mg inhalation Q6H PRN (Reason: shortness of breath or wheezing) Qty: 360 5RF buspirone 15 mg tablet 15 mg PO TID Qty: 90 3RF Breztri Aerosphere 160-9-4.8 mcg/actuation HFA aerosol inhaler See Rx Instructions .ROUTE .COMPLEX Qty: 10.7 5RF Dose Instruction: INHALE 2 PUFFS TWICE DAILY RINSE MOUTH AFTER USE Rx Instructions: INHALE 2 PUFFS TWICE DAILY RINSE MOUTH AFTER USE Follow-up/Referrals: Solo,Shaun Newton, [Primary Care Provider] -
[2024-04-22] MEDS: ALBUTEROL SULFATE NEB 2.5 MG/3 ML INH 10 MG INHALATION (08:28)
[2024-04-22 08:37] LABS: INR 1.1; Partial Thromboplastin Time 30.9 Seconds (22.3-36.8); Prothrombin Time 14.8 Seconds (11.1-14.7)
[2024-04-22 08:43] LABS: Alveolar/Arterial O2 Gradient 70.9 mmHg; Base Excess ABG 6.4 mEq/l (+/-2.0); Carboxyhemoglobin 0.8 % THb (0-2.0); Device NASAL CANNULA; Fractional Inspired Oxygen 32 %; HCO3 ABG 32.9 mEq/l (22.0-26.0); Methemoglobin ABG 0.2 %THb (0-1.5); Modified Allen's Test Pass; Oxygen Content ABG 17.8 %vol (16.0-22.0); Oxygen Saturation ABG 96.9 % (95.0-100.0); Oxyhemoglobin 96.8 % THb (90.0-100.0); PCO2 ABG 55.3 mmHg (35.0-45.0); PO2 ABG 92.6 mmHg (80.0-100.0); PO2 FiO2 Ratio Arterial Blood 2.89 %; Reduced Hemoglobin 2.2 %THb (0-5.0); Site Drawn RIGHT RADIAL; pH ABG 7.392 (7.350-7.450)
[2024-04-22] MEDS: methylPREDNISolone SOD SUCC 125 MG VIAL IV PUSH (08:45)
[2024-04-22] MEDS: LORazepam INJ (*CRX) 2 MG/ML VIAL 0.5 MG IV PUSH (10:18)
--- NOTE | 2024-04-22 11:14 | PCRCNOTE ---
I morena the blood gas as soon as it was ordered at 0749, once I got the gas I had to go to another room for an intubation so the gas was not ran until 0841. Whit ALDRIDGE ran the gas for me at that time. Doctor aware and given the results.
[2024-04-22] MEDS: AZITHROMYCIN 500 MG/NS 250 ML 500 MG/250 ML BAG 250 MG IVPB (11:50)
--- NOTE | 2024-04-22 11:56 | PC.NURSE ---
Pt. did not tolerate the BiPAP. 02 84% with good pleth on 4L. Audible crackles. MD Zavaleta notified. Pt refuses intubation. 02 titrated to 6L. 02 92%. Per MD zavaleta, no additional interventions at this time.
--- NOTE | 2024-04-22 13:50 | ADMGEN ---
This patient, Ana Laura Monzon, was admitted to IMU Room 201-01. Patient/family oriented to hospital policies and general routines including ID bracelet, bed and alarms, visiting hours, pain management, procedures, bathroom and other care routines, personal items, smoking policy, room service/diet, and visiting hours. Information on how to activate the Rapid Response Team has been discussed. Patient/Family are encouraged to report perceived risks to care and to ask questions if they do not understand what they are told or what they should do.
--- NOTE | 2024-04-22 13:55 | PC.NURSE ---
Moved to bed from stretcher with total assist. Pt speaking one word at a time. States Help , Me . RR 38. O2 63% on 6L. O2 increased to 12L. O2 59%. Accessory muscle use. Pale and warm. Rapid response called. Respiratory therapist, charge nurse, Dr. Hernandez, and Metallurgical Technician at bedside. Bipap placed at 12/6, rt 20, FiO2 100%. O2 sat 100%.
--- NOTE | 2024-04-22 14:13 | PM.IMHP ---
H&P: HPI History of Present Illness Date/Time: 04/22/24 13:10 Chief Complaint: Worsening SOB Narrative: Patient was brought in to the ER by family from home with reports of worsening SOB within the last couple of weeks. Patient has a Hx of Severe COPD and is on chronic supplemental O2 at home @3L/NC at rest and 4L/NC with activity. Patient also follows up with [facility] Dr. Garcia for her COPD mgt. Pt reports worsening SOB with minimal activity. She also reports intermittent cough episodes with brownish sputum. She denies any fevers or hemoptysis. Patient's Severe COPD was previously being maintained by Breztri daily, azithromycin MWF; albuterol rescue 3-4x/day and neb 3x/day. Patient saw her [facility] about 3 weeks ago and reported not seeing any benefits from Azithromycin and the medication was discontinued. Patient also declined any invasive procedures that would assist with her lung condition, also declining palliative care or hospice care discussion,as she wasn't ready for that discussion yet. Patient had ABG's done on her presentation and her PH was 7.39 with PCO2 55.3, PO2 92.6. She was placed on BIPAP but she later removed it, stating she couldn't tolerate, and she was placed on 6L/NC O2. On transfer to her room from ER, patient had an episode tachypnea and SOB, repeat ABG's showed PH 7.19, PCO2 96, PO2 139.8. She has been put back on the BIPAP and we'll follow repeat ABG's and wean to supplemental O2 as needed. Other significant labs; WBC 14.3, Hgb 10.5, BNP 203. Patient's CXR is consistent with RLL PNA with small R. Pleural effusion. After a long discussion with patient and family ( and daughter), patient has decided to change her code status to DNR/DNI. Review of Systems Review of Systems: All systems reviewed & are unremarkable except as noted in HPI and below PMFSH Past Medical History Medical History (Updated 04/22/24 @ 15:09 by Scar Carroll NP) Anxiety CHF (congestive heart failure), NYHA class I Diastolic Chronic respiratory failure 2L nocturnal home O2 COPD (chronic obstructive pulmonary disease) Cystoid macular edema following cataract surgery, bilateral Essential hypertension Former smoker Hyperlipidemia KRIS on CPAP Intolerable of a CPAP Spontaneous pneumothorax Suprarenal aortic aneurysm Surgical History Surgical History H/O cataract extraction Bilateral H/O tubal ligation History of breast biopsy History of cholecystectomy History of total hip arthroplasty Bilateral S/P thoracotomy with pleurodesis, Right spontaneous pneumothorax. ~2004 Family History Family History Father Cerebrovascular accident, Onset Age: 87 Patient's father is Mother Patient's mother is Diabetes mellitus Hypertension Family history of cardiovascular disease Sibling Patient's brother is Family history of obesity Hypertension Patient's brother is in good health Malignant neoplasm of prostate Family history of diabetes mellitus in first degree relative Diabetes mellitus Family history of alcoholism Family history of arthritis Family history of malignant neoplasm of esophagus Social History Social History Social History: The patient lives with her and she has 2 children. Her is a durable power trademark attorney for healthcare. 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 She has 1 beagle at home. Smoking packs per day: 2 Smoking cigarettes per day: 40.0 Years smoked: 50 Smoking pack-years: 100.00 Smoking status: Former smoker Tobacco type: cigarettes Second hand tobacco smoke exposure: No Smoking end date: 06/06/14 Alcohol intake: current Drinks per week: 7 Alcohol use details: Wine. CAGE 0. Substance use: never Substance use type: does not use Lack of Transportation: No Lack of Food: Never True Current Housing: I Have Housing Concerned About Future Housing: No Difficulty Paying Gas/Electric Bills: No Difficulty Paying for Meds: No Currently Unemployed: No Education: High School Diploma/GED Difficulty w/ Childcare or Family Care: No Living arrangements: with family Occupation/Education: retired Gender identity (if verbalized by the patient): Female Spiritual care concerns: No Meds Home Medications and Allergies Home Medications Medication Instructions Recorded Confirmed Type ascorbic acid (vitamin C) 1,000 mg 1 g PO DAILY 08/23/22 03/28/24 History capsule multivitamin (Daily Multi-Vitamin 1 tablet PO DAILY 08/23/22 03/28/24 History tablet) lisinopril 20 mg tablet 20 mg PO DAILY #90 tabs 09/20/23 03/28/24 Rx albuterol sulfate 2.5 mg/3 mL 2.5 mg (3 mL) inhalation Q6H PRN 01/04/24 03/28/24 Rx (0.083 %) solution for nebulization shortness of breath or wheezing #360 mL buspirone 15 mg tablet 15 mg PO TID #90 tabs 03/15/24 03/28/24 Rx albuterol sulfate 90 mcg/actuation 2 inh inhalation Q4-6H PRN 03/28/24 03/28/24 Rx aerosol inhaler shortness of breath or wheezing #18 grams ensifentrine 3 mg/2.5 mL 2.5 ml inhalation QAM AND QPM 03/28/24 03/28/24 History suspension for nebulization (Ohtuvayre) budesonide 160 mcg-glycopyr 9 See Rx Instructions .Route 04/09/24 Rx mcg-formot 4.8 mcg/actuation HFA .COMPLEX #10.7 grams inhaler (Exit41ztri bright boxphere) Allergies Allergy/AdvReac Type Severity Reaction Status Date / Time fluticasone furoate AdvReac Severe Rash Verified 03/28/24 14:21 [From Trelegy Ellipta] umeclidinium AdvReac Severe Rash Verified 03/28/24 14:21 [From Trelegy Ellipta] vilanterol AdvReac Severe Rash Verified 03/28/24 14:21 [From Trelegy Ellipta] Vital Signs Vital Signs - 24 hr 04/22/24 06:03 04/22/24 06:11 04/22/24 08:44 Temperature 99.6 F Pulse Rate 116 H 116 H Respiratory Rate 20 25 H Blood Pressure 143/77 H 129/70 Pulse Oximetry 100 100 100 Oxygen Delivery Nasal Cannula Nasal Cannula Oxygen Flow Rate 4 4 04/22/24 09:25 04/22/24 10:21 04/22/24 10:42 Temperature Pulse Rate 86 116 H 114 H Respiratory Rate 28 H 30 H 39 H Blood Pressure 158/79 H Pulse Oximetry 97 94 Oxygen Delivery BiPAP Oxygen Flow Rate 04/22/24 11:30 04/22/24 13:28 Temperature Pulse Rate 112 H 104 H Respiratory Rate 28 H 25 H Blood Pressure 121/72 113/57 L Pulse Oximetry 97 100 Oxygen Delivery Oxygen Flow Rate Exam Narrative: HEENT: Atraumatic, PERRL, EOM, anicteric, edentulous, moist mucus membranes. NECK: Supple. Lungs: Diminished with faint inspiratory and expiratory wheezes. Heart: Tachycardia. Abdomen: Soft, non-tender, non-distended, +ve bowel sounds X4 quadrants. Extremities: No cyanosis, no edema, +ve pedal and radial pulses. Skin: Warm and dry. No lesions noted. Neuro: Well oriented. No focal neuro deficits noted. Psych: Calm and co-operative. H&P: Results Labs Labs: Short CBC 04/22/24 Range/Units 06:20 WBC 14.3 H (4.5-10.0) K/mm3 Hgb 10.5 L (12.0-15.0) g/dL Hct 34.5 L (37.0-47.0) % Plt Count 335 (150-375) k/mm3 BMP 04/22/24 06:20 Sodium 144 Potassium 4.4 Chloride 98 Carbon Dioxide > 40 H BUN 24 H D Creatinine 0.40 L Glucose 124 H Calcium 9.7 Cardiac Enzymes 04/22/24 Range/Units 06:20 Troponin I < 0.012 (0.000-0.034) ng/mL Liver Function 04/22/24 Range/Units 06:20 Total Bilirubin 0.3 (0.2-1.3) mg/dL AST 37 H (14-36) U/L ALT 23 (6-35) U/L Alkaline Phosphatase 119 (38-126) U/L Albumin 3.9 (3.5-5.1) g/dL Assessment and Plan Assessment and plan (1) Pneumonia: Qualifiers: Laterality: right Lung location: lower lobe of lung Code(s): J18.9 - Pneumonia, unspecified organism Status: Acute Assessment and Plan: CXR: Right lower lobe pneumonia with small right pleural effusion. Underlying COPD. - Blood cultures collected. - Urine Strep. Pneumo and Legionella Ag ordered. - Started on broad-spectrum IV abx. - Follow cultures. - Currrently on BIPAP and we'll wean as rosamaria to maintain sats > 90 %. - Consider mumps developer consult if no improvement in symptoms. (2) Acute and chronic respiratory failure: Code(s): J96.20 - Acute and chronic respiratory failure, unspecified whether with hypoxia or hypercapnia Status: Acute Assessment and Plan: - Likely related to above and Sever COPD exacerbation. - Mgt as # 1. - Currently on BIPAP and we'll wean as tolerated to supplemental O2/NC to maintain sats > 90 %. - Further mgt per COPD below. - Monitor closely for decompensation. (3) COPD (chronic obstructive pulmonary disease): Qualifiers: COPD type: emphysema Emphysema type: unspecified Qualified Code(s): J43.9 - Emphysema, unspecified Code(s): J44.9 - Chronic obstructive pulmonary disease, unspecified Status: Acute Assessment and Plan: - Acute on Chronic. - Started on IV Solu mederol and scheduled bronchodilators. - Wean off BIPAP as tolerated to maintain sats > 90 % on NC. - Continue abx. - Further mgt as # 1 and # 2. (4) Acute respiratory failure with hypoxia and hypercarbia: Code(s): J96.01 - Acute respiratory failure with hypoxia; J96.02 - Acute respiratory failure with hypercapnia Status: Acute Assessment and Plan: - Likely secondary to Pneumonia and COPD exacerbation. - Mgt as #1, #2, #3. - Currently on BIPAP and we'll wean as tolerated for sats > 90 %. - Follow repeat ABG's. (5) Diastolic heart failure: Qualifiers: Heart failure chronicity: acute on chronic Qualified Code(s): I50.33 - Acute on chronic diastolic (congestive) heart failure Code(s): I50.30 - Unspecified diastolic (congestive) heart failure Status: Chronic Assessment and Plan: - Appears compensated currently. - Monitor closely. (6) Essential hypertension: Code(s): I10 - Essential (primary) hypertension Status: Chronic Assessment and Plan: - BP currently well controlled. - Hold lisinopril for now and monitor winnie. (7) Anxiety: Code(s): F41.9 - Anxiety disorder, unspecified Status: Chronic Assessment and Plan: - Continue Buspar and Xanax PRN. Plan Continue PNA and COPD treatment, wean off supplemental O2 as tolerated to maintain sats > 90 % on NC. Monitor closely for decompensation. Quality VTE Prophylaxis VTE prophylaxis: mechanical ordered and pharmacologic ordered Hospitalist [facility] Advance Care Plan I have confirmed that the patient's Advanced Care Plan is present, code status is documented, or surrogate decision maker is listed in patient medical record.: Yes Medication Reconciliation I have utilized all available resources to obtain, update and review the patients current medications (includes all prescriptions, OTC, herbals, cannabis, and nutritional supplements).: Yes
[2024-04-22] MEDS: ALBUTEROL SULFATE NEB 2.5 MG/3 ML INH NEBULIZE ×2 (14:15→21:15)
[2024-04-22 14:33] LABS: Alveolar/Arterial O2 Gradient 182.4 mmHg; Base Excess ABG 5.5 mEq/l (+/-2.0); Fractional Inspired Oxygen 60 %; HCO3 ABG 36.2 mEq/l (22.0-26.0); Oxygen Content ABG 15.7 %vol (16.0-22.0); Oxyhemoglobin 98.3 % THb (90.0-100.0); PO2 ABG 139.8 mmHg (80.0-100.0); PO2 FiO2 Ratio Arterial Blood 2.33 %; Total Hemoglobin 11.2 g/dL (12.0-18.0)
[2024-04-22 14:35] LABS: Device BIPAP; Modified Allen's Test Pass; Site Drawn RIGHT RADIAL; pH ABG 7.194 (7.350-7.450)
[2024-04-22 14:36] LABS: Expiratory Pressure 6 cmH2O; Inspiratory Pressure 12 cmH2O
[2024-04-22] MEDS: SODIUM CHLORIDE 0.9% IV 1,000 ML 75 ML IV CONT ×2 (16:13→23:41)
[2024-04-22] MEDS: metroNIDAZOLE 500 MG/ISO 100ML 500 MG/100 ML BAG 100 MG IVPB (16:13)
[2024-04-22 16:50] LABS: Alveolar/Arterial O2 Gradient 171.2 mmHg; Base Excess ABG 8.6 mEq/l (+/-2.0); Fractional Inspired Oxygen 60 %; HCO3 ABG 38.3 mEq/l (22.0-26.0); Oxygen Content ABG 14.2 %vol (16.0-22.0); Oxygen Saturation ABG 98.6 % (95.0-100.0); Oxyhemoglobin 98.6 % THb (90.0-100.0); PO2 ABG 157.1 mmHg (80.0-100.0); PO2 FiO2 Ratio Arterial Blood 2.62 %
[2024-04-22 16:52] LABS: Device BIPAP; Expiratory Pressure 6 cmH2O; Inspiratory Pressure 12 cmH2O; Modified Allen's Test Pass; PCO2 ABG 90.5 mmHg (35.0-45.0); Site Drawn RIGHT RADIAL; pH ABG 7.244 (7.350-7.450)
[2024-04-22] MEDS: methylPREDNISolone SOD SUCC 125 MG VIAL 60 MG IV PUSH ×2 (18:23→23:41)
[2024-04-22] MEDS: ALPRAZolam (*CRX) 0.5 MG TABLET PO (18:23)
[2024-04-22 20:19] LABS: Glucose Point of Care 133 mg/dl (65-105)
[2024-04-22] MEDS: LORazepam INJ (*CRX) 2 MG/ML VIAL 0.25 MG IV PUSH (20:38)
[2024-04-22 21:59] LABS: Alveolar/Arterial O2 Gradient 104.6 mmHg; Base Excess ABG 8.2 mEq/l (+/-2.0); Fractional Inspired Oxygen 45 %; HCO3 ABG 38.5 mEq/l (22.0-26.0); Oxygen Content ABG 17.9 %vol (16.0-22.0); Oxygen Saturation ABG 97.4 % (95.0-100.0); Oxyhemoglobin 97.7 % THb (90.0-100.0); PO2 ABG 116.7 mmHg (80.0-100.0); PO2 FiO2 Ratio Arterial Blood 2.59 %; Total Hemoglobin 12.9 g/dL (12.0-18.0)
[2024-04-22 22:05] LABS: pH ABG 7.261 (7.350-7.450)
[2024-04-22 22:06] LABS: Device NON-INVASIVE VENT; Modified Allen's Test Pass; PCO2 ABG 87.5 mmHg (35.0-45.0); Site Drawn RIGHT RADIAL
[2024-04-22 22:07] LABS: Non-Invasive Expiratory Pressure 6 CMH2O; Non-Invasive Inspiratory Pressure 12 CMH2O; Non-Invasive Vent Rate 20 /MIN
[2024-04-22 23:59] LABS: Glucose Point of Care 118 mg/dl (65-105)
[2024-04-23] VITALS (30 sets, daily range): BP systolic 109–130; BP diastolic 57–70; PULSE 5–122; RESP 18–41; TEMP 36.4–36.9; O2SAT 93–100; BMI 16.7
[2024-04-23] MEDS: ALBUTEROL SULFATE NEB 2.5 MG/3 ML INH NEBULIZE ×5 (00:05→14:55)
[2024-04-23] MEDS: LORazepam INJ (*CRX) 2 MG/ML VIAL 0.25 MG IV PUSH ×2 (02:12→09:12)
[2024-04-23 02:42] LABS: Alveolar/Arterial O2 Gradient 97.8 mmHg; Base Excess ABG 6.5 mEq/l (+/-2.0); Fractional Inspired Oxygen 35 %; HCO3 ABG 33.4 mEq/l (22.0-26.0); Oxygen Content ABG 12.4 %vol (16.0-22.0); Oxygen Saturation ABG 94.5 % (95.0-100.0); Oxyhemoglobin 95.1 % THb (90.0-100.0); PO2 ABG 78.4 mmHg (80.0-100.0); PO2 FiO2 Ratio Arterial Blood 2.24 %; Total Hemoglobin 9.2 g/dL (12.0-18.0); pH ABG 7.342 (7.350-7.450)
[2024-04-23 02:45] LABS: Device NON-INVASIVE VENT; Modified Allen's Test Pass; Non-Invasive Expiratory Pressure 6 CMH2O; Non-Invasive Inspiratory Pressure 14 CMH2O; Non-Invasive Vent Rate 26 /MIN; PCO2 ABG 63.1 mmHg (35.0-45.0); Site Drawn RIGHT RADIAL
[2024-04-23] MEDS: methylPREDNISolone SOD SUCC 125 MG VIAL 60 MG IV PUSH ×3 (05:03→19:08)
[2024-04-23 05:16] LABS: Basophils Percent Auto 0.3 % (0.2-1.2); Hemoglobin 8.2 g/dL (12.0-15.0); Immature Granulocyte Absolute 0.26 K/mm3 (0.00-0.031); Immature Granulocyte Percent A 2.2 % (0-0.5); Lymphocytes Absolute Auto 0.48 K/mm3 (0.9-3.2); Lymphocytes Percent Auto 4.1 % (18.3-44.2); Mean Corpuscular HGB Conc 29.3 g/dl (32-36); Mean Corpuscular Hemoglobin 31.2 pg (26-34); Mean Corpuscular Volume 106.5 fl (80-100); Mean Platelet Volume 9.2 fl (7.4-10.4); Monocytes Absolute Auto 0.2 K/mm3 (0.1-0.6); Monocytes Percent Auto 1.6 % (2.6-8.5); Neutrophils Absolute Auto 10.6 K/mm3 (1.3-6.7); Neutrophils Percent Auto 91.8 % (45.5-73.1); Platelet Count Result 290 k/mm3 (150-375); Red Blood Count 2.63 M/mm3 (4.2-5.4); Red Cell Distribution Width 13.9 % (11.5-14.5); White Blood Count 11.6 K/mm3 (4.5-10.0)
[2024-04-23 05:37] LABS: Alanine Aminotransferase 25 U/L (6-35); Albumin Level 3.3 g/dL (3.5-5.1); Alkaline Phosphatase 110 U/L (38-126); Anion Gap 3 mmol/L (4-12); Aspartate Amino Transferase 35 U/L (14-36); Bilirubin,Total 0.3 mg/dL (0.2-1.3); Blood Urea Nitrogen 24 mg/dL (7-17); Calcium 8.9 mg/dL (8.4-10.2); Carbon Dioxide 39 mmol/L (22-30); Chloride 102 mmol/L (98-107); Estimated CRCL calculation 53 ml/min; Estimated Glomerular Filt Rate > 60; Glucose 137 mg/dL (65-110); Potassium 4.3 mmol/L (3.4-5.0); Sodium 144 mmol/L (137-145)
[2024-04-23 05:42] LABS: Anisocytosis 1+; Hypochromasia 1+; Platelet Estimate Adequate (Adequate); Schistocytes None Seen
--- NOTE | 2024-04-23 06:55 | PM.EVENT ---
Event Note Event Note Event Note: Nursing staff contacted me around 22:00 on the . The patient ABG with pH of 7.26 pCO2 of 87 PO2 of 116. A orders were given for BiPAP changes to increased from 12/6 up to 14/6 and 2 increased rate from 20-26 and to decrease the patient's FiO2 to 35. Repeat ABG this a.m. improved to 7.34 pCO2 of 63 PO2 of 78 with bicarb of 33.
[2024-04-23] MEDS: AZITHROMYCIN 500 MG/NS 250 ML 500 MG/250 ML BAG 250 MG IVPB (09:11)
[2024-04-23] MEDS: ENOXAPARIN 40 MG/0.4 ML SYRINGE SUB-Q (09:12)
--- NOTE | 2024-04-23 09:20 | PCSTNOTE ---
Please refer to the Bedside Swallow Evaluation in the EMR. Please note, silent aspiration cannot be ruled out at bedside.
--- NOTE | 2024-04-23 11:37 | P.PNIM_ITS ---
Progress Note: A&P Assessment and Plan (1) Pneumonia: Qualifiers: Laterality: right Lung location: lower lobe of lung Code(s): J18.9 - Pneumonia, unspecified organism Status: Acute Assessment and Plan: CXR: Right lower lobe pneumonia with small right pleural effusion. Underlying COPD. - Blood cultures pending. - Urine Strep. Pneumo and Legionella Ag ordered. - Continue broad-spectrum IV abx. - Follow cultures. - Currrently on 3L/HFNC for sats > 90 %. - Consider staff nuclear weapons officer consult if no improvement in symptoms. (2) Acute and chronic respiratory failure: Code(s): J96.20 - Acute and chronic respiratory failure, unspecified whether with hypoxia or hypercapnia Status: Acute Assessment and Plan: - Likely related to above and Sever COPD exacerbation. - Currently off BIPAP and on 3L/NCHF. - Repeat ABG's and lactate pending. - Further mgt per COPD below. - Monitor closely for decompensation. (3) COPD (chronic obstructive pulmonary disease): Qualifiers: COPD type: emphysema Emphysema type: unspecified Qualified Code(s): J43.9 - Emphysema, unspecified Code(s): J44.9 - Chronic obstructive pulmonary disease, unspecified Status: Acute Assessment and Plan: - Acute on Chronic. - Continue IV Solu mederol with dose reduction; 60mg Q6hrs>>40 mg Q4hrs. - Continue scheduled bronchodilators. - Currently on 3L/NCHF for sats > 90 %. - Continue IV abx. - Further mgt as # 1 and # 2. (4) Acute respiratory failure with hypoxia and hypercarbia: Code(s): J96.01 - Acute respiratory failure with hypoxia; J96.02 - Acute respiratory failure with hypercapnia Status: Acute Assessment and Plan: - Likely secondary to Pneumonia and COPD exacerbation. - Mgt as #1, #2, #3. - Currently on 3L/NCHF for sats > 90 %. - Last ABG showed PH 7.32, PCO2 33.4, PCO2 63.1, PO2 78.4, - Follow repeat ABG's. - Monitor clolsely for decompensation. (5) Dysphagia: Code(s): R13.10 - Dysphagia, unspecified Status: Acute Assessment and Plan: - Patient noted with coughs while drinking fluids. - Seen by ST and modified barium swallow recommended. - NPO for now with IVF hydration. - Follow ST recommendations. (6) Diastolic heart failure: Qualifiers: Heart failure chronicity: acute on chronic Qualified Code(s): I50.33 - Acute on chronic diastolic (congestive) heart failure Code(s): I50.30 - Unspecified diastolic (congestive) heart failure Status: Chronic Assessment and Plan: - Appears compensated currently. - Monitor closely with gentle IVF hydration. (7) Essential hypertension: Code(s): I10 - Essential (primary) hypertension Status: Chronic Assessment and Plan: - BP currently well controlled. - Hold lisinopril for now and monitor closley. (8) Anxiety: Code(s): F41.9 - Anxiety disorder, unspecified Status: Chronic Assessment and Plan: - Continue Buspar and Xanax PRN. Plan Continue PNA and COPD treatment, continue supplemental O2 to maintain sats > 90 % on NC. Monitor closely for decompensation. Follow ST recommendations with regards to dysphagia. Time Spent With Patient Time with patient: 15 - 25 minutes Subjective Date/time seen: 04/23/24 11:37 Patient very sleepy on bedrest. Spouse bedside and states pt reported to her not getting much sleep overnight. Interval history: Patient sleeping on bedrest but looks to be in no acute distress. Review of Systems Review of Systems: All systems reviewed & are unremarkable except as noted in HPI and below Exam Narrative: General: Sleeping. HEENT: Atraumatic, PERRL, EOM, anicteric, edentulous, moist mucus membranes. NECK: Supple. Lungs: Diminished with some coarseness. Heart: Tachycardia. Abdomen: Soft, non-tender, non-distended, +ve bowel sounds X4 quadrants. Extremities: No cyanosis, no edema, +ve pedal and radial pulses. Skin: Warm and dry. No lesions noted. Neuro: Fairly well oriented. No focal neuro deficits noted. Psych: Sleeping but easily awakens and co-operative. Objective Data Vital Signs Vital Signs: Vital Signs - 24 hr 04/22/24 13:28 04/22/24 14:16 04/22/24 14:16 Temperature Pulse Rate 104 H 108 H Respiratory Rate 25 H 24 H Blood Pressure 113/57 L Pulse Oximetry 100 100 Oxygen Delivery BiPAP Oxygen Flow Rate 04/22/24 14:24 04/22/24 14:25 04/22/24 14:00 Temperature Pulse Rate 107 H 105 H 109 H Respiratory Rate 24 H 26 H 32 H Blood Pressure 142/71 H 122/70 Pulse Oximetry 100 100 100 Oxygen Delivery BiPAP BiPAP Oxygen Flow Rate 04/22/24 15:26 04/22/24 16:00 04/22/24 16:41 Temperature Pulse Rate 103 H 98 100 Respiratory Rate 20 27 H Blood Pressure 96/57 L Pulse Oximetry 100 100 100 Oxygen Delivery BiPAP BiPAP Oxygen Flow Rate 04/22/24 16:00 04/22/24 16:00 04/22/24 18:00 Temperature Pulse Rate 98 96 Respiratory Rate Blood Pressure Pulse Oximetry 100 Oxygen Delivery BiPAP Oxygen Flow Rate 04/22/24 20:24 04/22/24 21:39 04/22/24 21:15 Temperature 98.8 F Pulse Rate 101 H 102 H Respiratory Rate 20 27 H 24 H Blood Pressure 118/67 Pulse Oximetry 99 100 Oxygen Delivery BiPAP Oxygen Flow Rate 04/22/24 21:25 04/22/24 20:00 04/22/24 22:00 Temperature Pulse Rate 100 104 H 91 Respiratory Rate 24 H Blood Pressure Pulse Oximetry Oxygen Delivery Oxygen Flow Rate 04/22/24 20:00 04/22/24 23:46 04/23/24 00:00 Temperature Pulse Rate 94 Respiratory Rate Blood Pressure Pulse Oximetry 100 99 Oxygen Delivery BiPAP BiPAP Oxygen Flow Rate 04/23/24 00:26 04/23/24 00:59 04/23/24 02:00 Temperature 97.6 F Pulse Rate 96 107 H 105 H Respiratory Rate 28 H 20 Blood Pressure 122/67 Pulse Oximetry 98 97 Oxygen Delivery BiPAP Oxygen Flow Rate 04/23/24 02:46 04/23/24 04:08 04/23/24 04:09 Temperature Pulse Rate 102 H 89 112 H Respiratory Rate 31 H 24 H 29 H Blood Pressure Pulse Oximetry 97 94 Oxygen Delivery BiPAP BiPAP Oxygen Flow Rate 04/23/24 04:23 04/23/24 04:00 04/23/24 04:00 Temperature 97.6 F Pulse Rate 98 92 Respiratory Rate 26 H Blood Pressure 109/57 L Pulse Oximetry 94 93 Oxygen Delivery BiPAP Oxygen Flow Rate 04/23/24 06:00 04/23/24 06:45 04/23/24 06:57 Temperature Pulse Rate 88 106 H Respiratory Rate 20 Blood Pressure Pulse Oximetry 96 99 Oxygen Delivery Nasal Cannula High Flow Nasal Cannula Oxygen Flow Rate 3 3 04/23/24 06:57 04/23/24 07:07 04/23/24 08:00 Temperature 97.9 F Pulse Rate 106 H 105 H 110 H Respiratory Rate 20 20 22 H Blood Pressure 130/70 Pulse Oximetry 100 Oxygen Delivery Oxygen Flow Rate 04/23/24 08:30 04/23/24 08:30 04/23/24 10:00 Temperature Pulse Rate 106 H 103 H Respiratory Rate Blood Pressure Pulse Oximetry 100 Oxygen Delivery High Flow Nasal Cannula Oxygen Flow Rate 3 04/23/24 11:10 04/23/24 11:20 Temperature Pulse Rate 107 H 104 H Respiratory Rate 18 18 Blood Pressure Pulse Oximetry Oxygen Delivery Oxygen Flow Rate Intake/Output Intake/Output: Intake & Output 04/20/24 04/21/24 04/22/24 04/23/24 23:59 23:59 23:59 23:59 Intake Total 860 50 Output Total 0 Balance 860 50 Meds/Results Medications: Active Medications Generic Name Dose Route Start Last Admin Trade Name Freq PRN Reason Stop Dose Admin Albuterol 2.5 mg 04/22/24 16:00 04/23/24 11:10 Albuterol Sulfate Neb 2.5 Mg/3 Ml Inh NEBULIZE 2.5 mg Q4HRT BLAYNE Administration Enoxaparin Sodium 40 mg 04/23/24 09:00 04/23/24 09:12 Enoxaparin 40 Mg/0.4 Ml Syringe SUB-Q 40 mg DAILY BLAYNE Administration Ceftriaxone Sodium 1 gm in 50 mls @ 100 mls/hr 04/23/24 09:00 04/23/24 10:07 Rocephin 1 Gm/Ns 50 Ml IVPB Infused Q24H BLAYNE Infusion Azithromycin 500 mg in 250 mls @ 250 mls/hr 04/23/24 09:00 04/23/24 09:11 Zithromax IVPB 250 mls/hr Q24H BLAYNE Administration Sodium Chloride 1,000 mls @ 75 mls/hr 04/22/24 10:45 04/22/24 23:41 Normal Saline Iv IV CONT 75 mls/hr .[id number] BLAYNE Administration Lorazepam 0.25 mg 04/22/24 18:39 11/18/24 09:12 Lorazepam Inj (*Crx) 2 Mg/Ml Vial IV PUSH 0.25 mg TID PRN Administration Anxiety Methylprednisolone Sodium Succinate 60 mg 04/22/24 18:00 04/23/24 05:03 Methylprednisolone Sod Succ 125 Mg Vial IV PUSH 60 mg Q6HR BLAYNE Administration Radiology Results: ITS Impressions Chest X-Ray 04/22/24 08:36 Impression: Right lower lobe pneumonia with small right pleural effusion. Underlying COPD. Labs Labs: Laboratory Results - last 24 hr 04/22/24 04/22/24 04/22/24 14:27 16:46 20:13 WBC RBC Hgb Hct MCV MCH MCHC RDW Plt Count MPV Immature Gran % (Auto) Neut % (Auto) Lymph % (Auto) Mcpherson % (Auto) Eos % (Auto) Baso % (Auto) Lymph # (Auto) Mcpherson # (Auto) Eos # (Auto) Baso # (Auto) Abs Immat Gran (auto) Absolute Neuts (auto) Absolute Nucleated RBC Nucleated RBC % Platelet Estimate Hypochromasia Anisocytosis Schistocytes Puncture Site Right radial Right radial ABG pH 7.194 L* 7.244 L* ABG pCO2 96.0 H* 90.5 H* ABG pO2 139.8 H 157.1 H ABG PO2/FiO2 Ratio 2.33 2.62 ABG HCO3 36.2 H 38.3 H ABG O2 Saturation 98.0 98.6 ABG O2 Content 15.7 L 14.2 L ABG Base Excess 5.5 8.6 A-a Gradient 182.4 171.2 Oxyhemoglobin 98.3 98.6 Total Hemoglobin 11.2 L 10.0 L O2 Delivery Device Bipap Bipap O2 Liters/Min Not Reportable Not Reportable Vent Rate FiO2 60 60 Expiratory Pressure 6 6 Inspiratory Pressure 12 12 Sodium Potassium Chloride Carbon Dioxide Anion Gap BUN Creatinine Estim Creat Clear Calc Estimated GFR Glucose POC Capillary Glucose 133 H Calcium Total Bilirubin AST ALT Alkaline Phosphatase Total Protein Albumin 04/22/24 04/22/24 04/23/24 21:48 23:53 02:13 WBC RBC Hgb Hct MCV MCH MCHC RDW Plt Count MPV Immature Gran % (Auto) Neut % (Auto) Lymph % (Auto) Mcpherson % (Auto) Eos % (Auto) Baso % (Auto) Lymph # (Auto) Mcpherson # (Auto) Eos # (Auto) Baso # (Auto) Abs Immat Gran (auto) Absolute Neuts (auto) Absolute Nucleated RBC Nucleated RBC % Platelet Estimate Hypochromasia Anisocytosis Schistocytes Puncture Site Right radial Right radial ABG pH 7.261 L* 7.342 L ABG pCO2 87.5 H* 63.1 H* ABG pO2 116.7 H 78.4 L ABG PO2/FiO2 Ratio 2.59 2.24 ABG HCO3 38.5 H 33.4 H ABG O2 Saturation 97.4 94.5 L ABG O2 Content 17.9 12.4 L ABG Base Excess 8.2 6.5 A-a Gradient 104.6 97.8 Oxyhemoglobin 97.7 95.1 Total Hemoglobin 12.9 9.2 L O2 Delivery Device Non-invasive vent Non-invasive vent O2 Liters/Min Not Reportable Not Reportable Vent Rate 20 26 FiO2 45 35 Expiratory Pressure 6 6 Inspiratory Pressure 12 14 Sodium Potassium Chloride Carbon Dioxide Anion Gap BUN Creatinine Estim Creat Clear Calc Estimated GFR Glucose POC Capillary Glucose 118 H Calcium Total Bilirubin AST ALT Alkaline Phosphatase Total Protein Albumin 04/23/24 04:39 WBC 11.6 H RBC 2.63 L Hgb 8.2 L Hct 28.0 L MCV 106.5 H MCH 31.2 MCHC 29.3 L RDW 13.9 Plt Count 290 MPV 9.2 Immature Gran % (Auto) 2.2 H Neut % (Auto) 91.8 H Lymph % (Auto) 4.1 L Mcpherson % (Auto) 1.6 L Eos % (Auto) 0.0 Baso % (Auto) 0.3 Lymph # (Auto) 0.48 L Mcpherson # (Auto) 0.2 Eos # (Auto) 0.0 Baso # (Auto) 0.0 Abs Immat Gran (auto) 0.26 H Absolute Neuts (auto) 10.6 H Absolute Nucleated RBC 0.000 Nucleated RBC % 0.0 Platelet Estimate Adequate Hypochromasia 1+ Anisocytosis 1+ Schistocytes None seen Puncture Site ABG pH ABG pCO2 ABG pO2 ABG PO2/FiO2 Ratio ABG HCO3 ABG O2 Saturation ABG O2 Content ABG Base Excess A-a Gradient Oxyhemoglobin Total Hemoglobin O2 Delivery Device O2 Liters/Min Vent Rate FiO2 Expiratory Pressure Inspiratory Pressure Sodium 144 Potassium 4.3 Chloride 102 Carbon Dioxide 39 H Anion Gap 3 L BUN 24 H Creatinine 0.50 L Estim Creat Clear Calc 53 Estimated GFR > 60 Glucose 137 H POC Capillary Glucose Calcium 8.9 Total Bilirubin 0.3 AST 35 ALT 25 Alkaline Phosphatase 110 Total Protein 7.0 Albumin 3.3 L Quality VTE Prophylaxis VTE prophylaxis: mechanical ordered and pharmacologic ordered Hospitalist MIPS Advance Care Plan I have confirmed that the patient's Advanced Care Plan is present, code status is documented, or surrogate decision maker is listed in patient medical record.: Yes Medication Reconciliation I have utilized all available resources to obtain, update and review the patients current medications (includes all prescriptions, OTC, herbals, cannabis, and nutritional supplements).: Yes
[2024-04-23 12:37] LABS: Glucose Point of Care 133 mg/dl (65-105)
[2024-04-23 12:49] LABS: Alveolar/Arterial O2 Gradient 52.4 mmHg; Base Excess ABG 8.5 mEq/l (+/-2.0); Fractional Inspired Oxygen 30 %; HCO3 ABG 37.4 mEq/l (22.0-26.0); Oxygen Content ABG 12.9 %vol (16.0-22.0); Oxygen Saturation ABG 88.8 % (95.0-100.0); Oxyhemoglobin 91.5 % THb (90.0-100.0); PO2 FiO2 Ratio Arterial Blood 2.17 %
[2024-04-23 12:50] LABS: pH ABG 7.276 (7.350-7.450)
[2024-04-23 12:52] LABS: PCO2 ABG 82.1 mmHg (35.0-45.0); Site Drawn RIGHT BRACHIAL
[2024-04-23 12:53] LABS: Device BIPAP
[2024-04-23 12:54] LABS: Expiratory Pressure 6 cmH2O; Inspiratory Pressure 14 cmH2O
[2024-04-23 14:40] LABS: Lactic Acid Reflex 0.8 mmol/L (0.7-2.0)
--- NOTE | 2024-04-23 15:05 | PCSTNOTE ---
MBS on hold today due to patient's condition.
[2024-04-23 16:04] LABS: Alveolar/Arterial O2 Gradient 71.6 mmHg; Base Excess ABG 7.1 mEq/l (+/-2.0); Carboxyhemoglobin 0.1 % THb (0-2.0); Fractional Inspired Oxygen 30 %; HCO3 ABG 34.4 mEq/l (22.0-26.0); Methemoglobin ABG 0.1 %THb (0-1.5); Oxygen Content ABG 13.1 %vol (16.0-22.0); Oxygen Saturation ABG 91.1 % (95.0-100.0); Oxyhemoglobin 92.7 % THb (90.0-100.0); PO2 ABG 65.6 mmHg (80.0-100.0); PO2 FiO2 Ratio Arterial Blood 2.19 %; Reduced Hemoglobin 7.1 %THb (0-5.0); pH ABG 7.339 (7.350-7.450)
[2024-04-23 16:06] LABS: Device BIPAP; PCO2 ABG 65.3 mmHg (35.0-45.0); Site Drawn RIGHT BRACHIAL
[2024-04-23 16:07] LABS: Expiratory Pressure 6 cmH2O; Inspiratory Pressure 14 cmH2O
[2024-04-23] MEDS: SODIUM CHLORIDE 0.9% IV 1,000 ML 75 ML IV CONT (19:06)
--- NOTE | 2024-04-23 19:22 | P.PNCROSS_ITS ---
Event Note Event Note Event Note: ios software engineer RN called to notified me that patient's oxygen saturation was in the 50 percentile range. Patient had refused BiPAP and was on supplemental oxygen by nasal cannula. Patient had failed swallow study but demanded to be able to eat and drink against medical advice. Family and patient all in agreement with comfort measures only, allowing patient to drink as tolerated, pain and anxiety medication as needed to allow her to pass away peacefully. Patient allowed to u se her home inhaler at bedside as often as she desired. Day shift provider had noted these conversations that he had with the patient and family in his note but did not change orders to allow comfort measures only and the RN was not comfortable giving Ativan in the absence of comfort measure orders. I went to bedside and confirmed with patient and family the intention of comfort measures, what this looks like and what it means. Plan will remain to consult hospice in the morning if patient is still alive.
--- NOTE | 2024-04-23 19:52 | PC.NURSE ---
1500- spoke with dr. mcdaniel about family wanting to speak with him about wishes for comfort care/ hospice for their mom- she wants bipap off and water. 1600- Dr. Mcdaniel called again -pt had put BIPAP on briefly when md came into see pt and now pt refusing BIPAP-- family at bedside and want to talk with MD about /comfort care- 1700 - Dr. Mcdaniel in room spoke with family- MD spoke with this nurse and stated family aware pt failed swallow test and she could aspirate-/choke- md okay to give her food/water per family wishes; leave BIPAP off - per pt/family request- pt DNR - this nurse talk with md about comfort care orders- awaiting new orders
--- NOTE | 2024-04-23 20:20 | PC.NURSE ---
191 RN doing bedside shift report. Patient drowsy, alert and oriented x3. Family at bedside stated they previously discussed with provider and thought comfort measures had already been ordered. No comfort measures at this time. Patient sating 60% on 15 L NC. Patient refused bipap. Discussion had with patient and family who all request comfort care. 1914 RN called Hilario Johnston to bedside
[2024-04-23] MEDS: LORazepam INJ (*CRX) 2 MG/ML VIAL IV PUSH (21:01)
[2024-04-23] MEDS: MORPHINE SULFATE (*CRX) 2 MG/ML INJ IV PUSH (21:22)
--- NOTE | 2024-04-23 23:20 | PC.NURSE ---
Patient to [facility]. Not candidate per [facility], [facility] in [facility] notified; patient to be picked up in AM.
== END 2024-04-23 22:24 | disposition expired | DRG 193 ==
LOC: ANHED 11:36 → ANHIMU 13:09
PROVIDERS: Emergency Medicine; Internal Medicine; Admitting Provider Internal Medicine; Emergency Provider General Practice; PCP Internal Medicine; Visit Provider Nurse Practitioner Adult Health
DX: J18.9 Pneumonia, unspecified organism (principal); J96.21 Acute and chronic respiratory failure with hypoxia; J96.22 Acute and chronic respiratory failure with hypercapnia; J44.0 Chronic obstructive pulmonary disease with (acute) lower respiratory infection; I50.32 Chronic diastolic (congestive) heart failure; J44.1 Chronic obstructive pulmonary disease with (acute) exacerbation; E87.20 Acidosis, unspecified; F41.9 Anxiety disorder, unspecified; E78.5 Hyperlipidemia, unspecified; G47.33 Obstructive sleep apnea (adult) (pediatric); I11.0 Hypertensive heart disease with heart failure; R13.10 Dysphagia, unspecified; I72.2 Aneurysm of renal artery; Z96.643 Presence of artificial hip joint, bilateral; Z87.891 Personal history of nicotine dependence; Z90.49 Acquired absence of other specified parts of digestive tract; Z98.42 Cataract extraction status, left eye; Z98.41 Cataract extraction status, right eye; Z99.81 Dependence on supplemental oxygen; Z51.5 Encounter for palliative care
CPT/HCPCS: 36415; 36600; 71045; 80053; 82375; 82805; 82948; 83050; 83605; 83880; 84484; 85018; 85025; 85610; 85730; 87040; 92610; 93005; 94640; 94660; 96365; 96375; 99291; A9270; J0456; J0696; J1650; J1836; J2060; J2270; J2919; J7030